=== PATIENT | male | born 1935 | race African-American/Black ===

== ENCOUNTER 2016-06-25 16:55 | Outpatient (RCR) | payer MEDICARE, BC ==
[~2016-06-25 16:55] MED LIST: ASPIR 8181 MG ORAL; BACTRIM DS TAB1 EAC1 ORAL; BENADRYL25 M3 PO; KEFLEX500 MG ORAL; NEURONTIN600 MG ORAL; NYSTATIN TP; PREDNISONE20 MG ORAL; TRIAMCINOLONE TP; VICODIN 5-3001 EACH ORAL; ZOCOR20 MG ORAL
== END 2016-07-17 | disposition home or self-care (01) ==
LOC: WCC 16:55
DX: L97.822 Non-pressure chronic ulcer of other part of left lower leg with fat layer exposed (principal); I87.2 Venous insufficiency (chronic) (peripheral); I10 Essential (primary) hypertension; D57.1 Sickle-cell disease without crisis; Z88.6 Allergy status to analgesic agent
CPT/HCPCS: 11042; 11045; 15271; 29580; Q4133

== ENCOUNTER 2016-07-23 10:00 | Outpatient (RCR) | payer MEDICARE, BC | END 2016-08-14 | disposition home or self-care (01) | LOC: WCC 10:00 | DX: L97.822 Non-pressure chronic ulcer of other part of left lower leg with fat layer exposed (principal); I87.2 Venous insufficiency (chronic) (peripheral); I10 Essential (primary) hypertension; Z83.3 Family history of diabetes mellitus | CPT/HCPCS: 11042; 15271; 29580; Q4133 ==

== ENCOUNTER 2016-08-20 10:00 | Outpatient (RCR) | payer MEDICARE, BC | END 2016-09-14 | disposition home or self-care (01) | LOC: WCC 10:00 | DX: L97.821 Non-pressure chronic ulcer of other part of left lower leg limited to breakdown of skin (principal); L97.822 Non-pressure chronic ulcer of other part of left lower leg with fat layer exposed; I87.2 Venous insufficiency (chronic) (peripheral); Z79.82 Long term (current) use of aspirin; I10 Essential (primary) hypertension; D57.1 Sickle-cell disease without crisis | CPT/HCPCS: 15271; 29580; G0463; Q4133 ==

== ENCOUNTER 2018-01-15 11:33 | Emergency (ER) | payer MEDICARE, BC ==
[~2018-01-15] VITALS: Ht 188 cm; Wt 102.1 kg
[2018-01-15] MEDS ORDERED: IBUPROFEN600 MG ORAL (12:22)
--- NOTE | 2018-01-15 12:24 | Emergency Room Report ---
History of Present Illness General Chief Complaint: Upper Extremity Injury Source: Patient (Grover Martinez) Present Illness HPI 82-year-old male patient presents ER complaining of right elbow pain status post fall 2 weeks ago. Reports he was using a walker when it was pulled out from him and he fell backwards, states he fell on his back and then his head hit the floor, denies headache or back pain. Denies vomiting or vision changes. Denies dizziness, syncope. Reports pain symptoms improved we did not feel the need come to ER. Reports he came to the ER today because his daughter brought him in due to concerns of the swelling still being present. Patient history of sickle cell, denies chest pain, shortness of breath, other acute symptoms at this time. Reports he takes [place] for sciatica and low back pain. Reports last medication this morning. Denies fever, redness, worsening of pain symptoms. Reports he has been able to move his arm and elbow during this time. (Grover Martinez) Allergies: Coded Allergies: ACETAMINOPHEN (Verified Allergy, Unknown, 10/27/15) HYDROCODONE (Verified Allergy, Unknown, 10/27/15) Patient History Past Medical History: see triage record Reviewed Nursing Documentation: PMH: Agreed; PSxH: Agreed (Grover Martinez) Nursing Documentation-PMH Hx Cardiac Problems: Yes - HYPERCHOLESTEROLEMIA Hx Hypertension: Yes Hx Pacemaker: No - SICKLE CELL Hx Cancer: No Hx Gastrointestinal Problems: Yes Hx Neurological Problems: Yes - RIGHT HIP SCIATICAL PAIN Hx Weakness: Yes - RIGHT LOWER EXT (Grover Martinez) Review of Systems All Other Systems: negative except mentioned in HPI (Grover Martinez) Physical Exam Vital Signs Date Time Temp Pulse Resp B/P (MAP) Pulse Ox O2 Delivery O2 Flow Rate FiO2 01/15/18 11:43 98.2 80 18 140/86 95 Room Air 98.2 Sp02 EP Interpretation: reviewed, normal General Appearance: well appearing, no apparent distress, alert, GCS 15, non- toxic Head: normocephalic, atraumatic, other - negative Castillo sign, negative Raccoon eyes, negative skull depression Eyes: bilateral eye normal inspection, bilateral eye PERRL, bilateral eye EOMI ENT: hearing grossly normal, normal pharynx, no angioedema, normal voice, uvula midline, moist mucus membranes Neck: full range of motion Respiratory: lungs clear, normal breath sounds, no rhonchi, no respiratory distress, no accessory muscle use, no wheezing, speaking full sentences Cardiovascular #1: regular rate, rhythm, no edema Cardiovascular #2: 2+ radial (R), 2+ radial (L) Genitourinary: no CVA tenderness Musculoskeletal: back normal, digits/nails normal, gait/station normal, normal range of motion, non-tender, swelling - right elbow, mobile, other - neurovascularly intact, cap refill less than 2 seconds, no erythema or warmth to touch, no ecchymosis, tender - right elbow Neurologic: alert, oriented x3, responsive, reporting developer III-XII nml as tested, motor strength/tone normal, sensory intact, cerebellar normal, normal gait, speech normal Psychiatric: mood/affect normal Skin: no rash (Grover Martinez.AYeny) Medical Decision Making PA Attestation Dr. Butler is my supervising Physician whom patient management has been discussed with. (Grover Martinez.Conor) Medicare Attestation The history of Timothy Edward has been reviewed and management options for him have been examined and discussed by Radha Butler. I have personally examined and interviewed the patient. (Radha Butler DO) Diagnostic Impression: Primary Impression: Elbow effusion ER Course Pt. presents to the ED c/o right elbow. Ddx considered but are not limited to fracture, sprain, strain, contusion, dislocation. No erythema, no warmth to touch, no fever, nontoxic appearing, low suspicion for septic joint. Cranial nerves intact as tested, no focal neuro deficits, due to hx of sickle cell and age, will CT head to rule out underlying pathology. Vital signs: are WNL, pt. is afebrile Ordered X-ray and pain medication. ER COURSE CT head shows An X-ray of the right elbow shows Splint was applied to the right elbow and was checked afterwards by me showing good alignment and support with distal neurovascular functioning intact. Patient instructed on RICE method: rest, ice, compression, elevation. Patient instructed on rest, ice and heat. Patient instructed to be WBAT Followup with primary care provider. Discuss referral to ortho/pain management/ PT as needed. Discuss further imaging with MRI/CT as needed. DISCHARGE: -Rx provided for Ibuprofen for pain symptoms. At this time pt. is stable for d/c to home. Patient is resting comfortably, in no acute distress, nontoxic appearing, talking without difficulty. Will provide printed patient care instructions, and any necessary prescriptions. Patient instructed to follow with primary care provider in 3 - 5 days and to request further follow-up as needed. Care plan and follow up instructions have been discussed with the patient prior to discharge. Take medications as directed. Patient questions asked and answered. Patient reports understanding and agreement to treatment plan. ER precautions given, patient instructed to return to ER immediately for any new or worsening of symptoms. - Please note that this Emergency Department Report was dictated using [employer] interview[employer] technology software, occasionally this can lead to erroneous entry secondary to interpretation by the dictation equipment. (Grover Martinez.Conor) ER Course The patient has findings on exam consistent with a hemorrhagic bursitis. Based on physical exam infection has not suspected. CT of the head is unremarkable. CT of the head was done as a precaution given the patient's fall and age. There is no evidence of intracranial bleed. Patient right elbow x-ray and right humerus x-ray showed no acute findings. The patient was reassured. The patient was given return precautions and follow-up instructions. (Radha Butler DO) Other X-Ray Diagnostic Results Other X-Ray Diagnostic Results : X-Ray ordered: right elbow # of Views/Limited Vs Complete: 3 View Indication: Pain EP Interpretation: Yes PA Xray: Interpretation reviewed, by supervising MD, and agrees with findings. Interpretation: no dislocation, other - soft tissue swelling over elbow; anterior fat pad Impression: Other PA Scribe Text Zac Martinez PA-C (Grover Martinez P.A.) Other X-Ray Diagnostic Results : X-Ray ordered: R. elbow, R. humerus # of Views/Limited Vs Complete: Complete Indication: Swelling EP Interpretation: No Interpretation: no dislocation, no fractures Impression: No acute disease Electronically Signed by: Henrietta (Radha Butler DO) CT/MRI/US Diagnostic Results CT/MRI/US Diagnostic Results : Imaging Test Ordered: CT head (Grover Martinez P.A.) CT/MRI/US Diagnostic Results : Imaging Test Ordered: CT head Impression No acute findings. See official report. (Radha Butler DO) Last Vital Signs Date Time Temp Pulse Resp B/P (MAP) Pulse Ox O2 Delivery O2 Flow Rate FiO2 01/15/18 11:43 98.2 80 18 140/86 95 Room Air 98.2 (Grover Martinez) Disposition: HOME, SELF-CARE Condition: Stable Scripts Ibuprofen* (MOTRIN*) 600 Mg Tablet 600 MG ORAL Q8H PRN for For Pain, #30 TAB 0 Refills Prov: Grover Martinez 01/15/18 Patient Instructions: Elbow Bursitis, [id number], Elbow Contusion, Easy-to- Read Additional Instructions: Patient instructed to follow up with primary care provider and discuss further referral to orthopedics. Discuss need for drainage at that time. Patient instructed on RICE method: rest, ice, compression, elevation. Patient instructed to WBAT. Take medications as directed. Patient questions asked and answered. ER precautions given, patient instructed to return to ER immediately for any new or worsening of symptoms. Grover Martinez Jan 15, 2018 12:24 Radha Butler DO Jan 15, 2018 13:40
--- NOTE | 2018-01-15 13:07 | Diagnostic Imaging Report ---
Indications: Head trauma Technique: Spiral acquisitions obtained through the brain. Angled axial and coronal 5 x 5 mm slices were reconstructed. Total dose length product 1424.89 mGycm. CTDI vol(s) 70.38 mGy. Dose reduction achieved using automated exposure control Comparison: None. Findings: There is age-related enlargement of the ventricles and extra axial CSF spaces. No acute intracranial hemorrhage nor edema, mass effect, nor midline shift. There is periventricular deep white matter low-attenuation, consistent with chronic ischemic change. 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 A small cutaneous lesion is seen in the left 5 parietal scalp. Intact calvarium. Visualized sinuses are clear. The mastoids are clear Impression: Chronic and age-related changes Negative for acute intracranial bleed or mass effect Incidental findings of left parietal scalp cutaneous lesion, prior ocular surgery on the right The CT scanner at [facility] is accredited by the [employer] and the scans are performed using protocols designed to limit radiation exposure to as low as reasonably achievable to attain images of sufficient resolution adequate for diagnostic evaluation.
--- NOTE | 2018-01-15 13:20 | Diagnostic Imaging Report ---
Indications:Trauma, pain Technique: Three or 4 views of the right elbow Comparison: None Findings: There is soft tissue swelling overlying the olecranon. No definite joint effusion. No acute fractures. No dislocations. Impression: Evidence of soft tissue injury. No definite acute bony trauma
--- NOTE | 2018-01-15 13:21 | Diagnostic Imaging Report ---
Indications: Reason For Exam: TRAUMA Technique: Two views of the right humerus Comparison: None Findings: The AP view, there is very slight cortical irregularity of the humeral head, as well as some deformity of the humeral head, not confirmed on the orthogonal view. There is calcific tendinosis of the rotator cuff. No shaft fracture demonstrated. Impression: Slight cortical irregularity of the humeral head. Per discussion with referring physician, there are no symptoms related to the humeral head, so this probably this reflects degenerative changes rather than fracture. No definite acute bony trauma
[2018-01-15 14:03] VITALS: BP 118/74
== END 2018-01-15 14:06 | disposition home or self-care (01) ==
LOC: EMR 12:40
DX: M25.421 Effusion, right elbow (principal); E78.00 Pure hypercholesterolemia, unspecified; D57.1 Sickle-cell disease without crisis; M54.31 Sciatica, right side
CPT/HCPCS: 70450; 99283

== ENCOUNTER 2018-04-16 09:05 | Inpatient (IN) | payer MEDICARE, BC ==
[~2018-04-16] VITALS: Ht 184.2 cm; Wt 99.8 kg
[~2018-04-16 09:05] MED LIST changes: +IBUPROFEN600 MG ORAL
[2018-04-16 09:19] VITALS: BP 133/77
[2018-04-16] MEDS ORDERED: LOVASTATIN40 MG ORAL (09:31)
[2018-04-16] MEDS ORDERED: POTASSIUM CHLO20 ME2 ORAL (09:31)
[2018-04-16] MEDS ORDERED: AMLODIPINE BESY10 MG ORAL (09:31)
[2018-04-16] MEDS ORDERED: NORCO 10-325 T1 EACH ORAL (09:31)
[2018-04-16] MEDS ORDERED: NEXIUM40 MG ORAL (09:31)
[2018-04-16] MEDS ORDERED: TAMSULOSIN HCL0.4 MG ORAL (09:37)
[2018-04-16] MEDS ORDERED: Albuterol/Ipratropium 3ml neb HHN ONE (10:15)
[2018-04-16] MEDS ORDERED: Ketorolac 30mg Inj IV ONE (10:15)
[2018-04-16 10:48] LABS: HEMATOCRIT 34.7 % (42.0-52.0); HEMOGLOBIN 12.1 G/DL (14.2-18.0); MEAN CORPUSCULAR VOLUME 83 FL (80-99); PLATELET COUNT 314 K/UL (150-450); RED CELL DISTRIBUTION WIDTH 15.1 % (11.6-14.8); WHITE BLOOD COUNT 19.8 K/UL (4.8-10.8)
[2018-04-16 11:04] LABS: ANION GAP 3 mmol/L (5-15); BLOOD UREA NITROGEN 8 mg/dL (7-18); CALCIUM 9.2 MG/DL (8.5-10.1); CARBON DIOXIDE 31 MMOL/L (21-32); CHLORIDE 101 MMOL/L (98-107); CREATININE 0.9 MG/DL (0.55-1.30); POTASSIUM 4.5 MMOL/L (3.5-5.1); SODIUM 135 MMOL/L (136-145)
[2018-04-16 11:20] VITALS: BP 130/74
[2018-04-16] MEDS ORDERED: cefTRIAXone 1 GM in NS 55 ML IVPB ONE (12:30)
[2018-04-16] MEDS ORDERED: Azithromycin 500 MG in NS 275 ML IV ONE (12:30)
--- NOTE | 2018-04-16 13:12 | Emergency Room Report ---
History of Present Illness General Chief Complaint: Upper Respiratory Illness Source: Medical Record Present Illness HPI 82M with family here c/o chronic bilateral hip pain. Long standing condition, takes [place], Neurontin. No trauma but pain mildly worse today. Also +wheezing, harder to breathe. No fever, minimal nonproductive cough. No calf pain. No chest pain, no abd pain. Allergies: Coded Allergies: ACETAMINOPHEN (Verified Allergy, Unknown, 10/27/15) HYDROCODONE (Verified Allergy, Unknown, 10/27/15) Nursing Documentation-PMH Past Medical History: No History, Except For Hx Cardiac Problems: No - HYPERCHOLESTEROLEMIA Hx Hypertension: Yes Hx Pacemaker: No - SICKLE CELL Hx Cancer: No Hx Gastrointestinal Problems: Yes Hx Neurological Problems: No - RIGHT HIP SCIATICAL PAIN Hx Weakness: Yes - RIGHT LOWER EXT Review of Systems Constitutional: Reports: no symptoms, see HPI, malaise Eye: Reports: no symptoms ENT: Reports: no symptoms Respiratory: Reports: wheezing Cardiovascular: Reports: no symptoms Gastrointestinal: Reports: no symptoms Genitourinary: Reports: no symptoms Musculoskeletal: Reports: joint pain Skin: Reports: no symptoms Psychiatric: Reports: no symptoms Neurological: Reports: no symptoms Endocrine: Reports: no symptoms Hematologic/Lymphatic: Reports: no symptoms Allergic: Reports: no symptoms All Other Systems: negative except mentioned in HPI Physical Exam Vital Signs Date Time Temp Pulse Resp B/P (MAP) Pulse Ox O2 Delivery O2 Flow Rate FiO2 04/16/18 09:09 98.6 110 18 136/70 93 Room Air 04/16/18 11:20 3.0 Sp02 EP Interpretation: reviewed, normal General Appearance: normal inspection, well appearing, alert, GCS 15, non-toxic , mild distress Head: normocephalic, atraumatic Eyes: bilateral eye normal inspection, bilateral eye PERRL, bilateral eye EOMI ENT: normal ENT inspection, hearing grossly normal, normal pharynx, no angioedema, normal voice, moist mucus membranes Neck: normal inspection, full range of motion, supple, no meningismus, no bony tend Respiratory: normal inspection, normal breath sounds, no rhonchi, no retraction , no accessory muscle use, other - expiratory wheezes all lung hardin; crackles left lower half Cardiovascular #1: normal inspection, regular rate, rhythm, no edema Gastrointestinal: normal inspection, normal bowel sounds, non tender, soft, no mass, non-distended Musculoskeletal: gait/station normal, normal range of motion Neurologic: normal inspection, alert, oriented x3, responsive, motor strength/ tone normal Psychiatric: normal inspection, judgement/insight normal, memory normal Suicide Risk Assessment: Suicidal Ideation: No Had intent to initiate attempt: No Pt's plan for suicide attempt: No Has means to complete attempt: No Skin: normal inspection, normal color, no rash, warm/dry Medical Decision Making Diagnostic Impression: Primary Impression: Pneumonia ER Course pulse ox ~92% . ABG with hypoxemia 60 on RA leukocytosis noted DD: PE, ACS, pericarditis, pleural effusion, COPD exacerbation, asthma exacerbation, CHF exacerbation, pulmonary edema, bronchitis, URI, pneumonia, sepsis. Rhythm Strip Diag. Results Rhythm Strip Time: 13:12 EP Interpretation: yes Rate: 101 Rhythm: NSR Chest X-Ray Diagnostic Results Chest X-Ray Diagnostic Results : Chest X-Ray Ordered: Yes # of Views/Limited/Complete: 1 View Indication: Shortness of Breath EP Interpretation: Yes Interpretation: no pneumothorax, other - LLL infiltrate Last Vital Signs Date Time Temp Pulse Resp B/P (MAP) Pulse Ox O2 Delivery O2 Flow Rate FiO2 04/16/18 11:37 85 22 Nasal Cannula 3.0 04/16/18 11:20 98.6 130/74 97 Disposition: ADMITTED INPATIENT Condition: Serious Referrals: NON PHYSICIAN (PCP) Arturo Lujan M.D. Apr 16, 2018 13:12
--- NOTE | 2018-04-16 13:52 | Diagnostic Imaging Report ---
Indication: Shortness of breath Technique: One view of the chest Comparison: 01/14/2014 Findings: There is suboptimal inspiration, with crowding of bronchovascular markings. Atelectasis and patchy infiltrate is seen at the left lung base. There is generalized interstitial prominence and central bronchial wall thickening on the left. The heart is upper limits normal in size. The pleural spaces are grossly clear. As previously, bones are suggestively diffusely sclerotic Impression: Left basilar infiltrate Hypoventilatory exam with basilar atelectatic changes. Left lung interstitial disease and central bronchial wall thickening, nonspecific As previously, there is suggestion of diffuse osteoporosis. Correlate with any history of metabolic derangements
[2018-04-16 14:03] VITALS: BP 135/70
[2018-04-16 14:10] VITALS: BP 134/73
[2018-04-16] MEDS ORDERED: Miralax 17gm pkt ORAL PRN (14:15)
[2018-04-16] MEDS ORDERED: Morphine Sulfate 2mg/ml Inj IVP PRN (14:15)
[2018-04-16] MEDS ORDERED: Albuterol/Ipratropium 3ml neb HHN PRN (14:15)
--- NOTE | 2018-04-16 14:41 | Consultation ---
Consult Note Consult Note # [id number] Anjel Bob MD Apr 16, 2018 14:41
[2018-04-16 16:00] VITALS: BP 132/71
[2018-04-16 20:10] VITALS: BP 142/72
[2018-04-16] MEDS: Cefepime HCl 2 GM in D5W 110 ML IV SCH (20:43)
[2018-04-16] MEDS: Heparin 5000 units/ml inj SUBQ SCH (20:45)
--- NOTE | 2018-04-16 21:15 | History and Physical Report ---
DATE OF ADMISSION: 04/16/2018 TIME SEEN: 1 p.m. CONSULTANTS: 1. Eamon Fuller M.D. 2. Anjel Bob M.D. 3. Cristóbal Richardson D.P.M. CHIEF COMPLAINT: Hip pain, toe pain, also shortness of breath, and wheeze. BRIEF HISTORY: This is an 82-year-old male, who lives at home, presented with a chronic hip pain bilaterally getting worse with shortness of breath and wheezing, came to [facility], diagnosed with pneumonia, sepsis, hypoxia, and being admitted to telemetry for further care. Currently, O2 NC, calm, eating in the ER gurney. No complaint. REVIEW OF SYSTEMS: No chest pain. Slight short of breath. No nausea, vomiting, or diarrhea. PAST MEDICAL HISTORY: Includes hypertension, weakness, and sickle cell. PAST SURGICAL HISTORY: Cataract. MEDICATIONS: Include ceftriaxone, azithromycin, albuterol, and ketorolac. ALLERGIES: Tylenol and hydrocodone. SOCIAL HISTORY: No smoking. No alcohol. No intravenous drug abuse. FAMILY HISTORY: Noncontributory. PHYSICAL EXAMINATION: GENERAL: Calm in bed, oriented x2, in no acute distress. O2 NC in place, slight short of breath. VITAL SIGNS: Temperature 98 degrees, pulse 85, respirations 22, and blood pressure 130/74. CARDIOVASCULAR: No murmur. LUNGS: Poor air exchange. ABDOMEN: Bowel sounds positive. Nontender. Nondistended. EXTREMITIES: Show no cyanosis, clubbing, or edema. NEUROLOGIC: The patient moves all extremities. Slightly weak. LABORATORY AND DIAGNOSTIC DATA: White count 19, hemoglobin and hematocrit are 12 and 34, and platelets 314,000. Sodium 135 and glucose 123. Troponin 0.00. BNP is 181. ASSESSMENT: 1. Chronic hip pain bilaterally. 2. Shortness of breath. 3. Wheezing. 4. Pneumonia. 5. Sepsis. 6. Hypoxia. 7. Anemia. 8. Hypertension. 9. Weakness. 10. Sickle cell. PLAN: 1. Continue previous medications. 2. OT, PT, and dietary evaluation. 3. CBC and BMP in the morning. 4. O2 and pulmonary treatment as needed. 5. Pain control. 6. We will continue to follow this patient medically. lAen Goldman D.O. DR: BROOKLYNN JOB#: [id number] CC:
--- NOTE | 2018-04-16 22:30 | Consultation ---
DATE OF CONSULTATION: 04/16/2018 INFECTIOUS DISEASE CONSULTATION CONSULTING PHYSICIAN: Anjel Bob M.D. REFERRING PHYSICIAN: Alen Goldman D.O. REASON FOR CONSULTATION: Evaluation of the patient for pneumonia, leukocytosis, and antibiotic management. HISTORY OF PRESENT ILLNESS: The patient is a pleasant 82-year-old male with multiple medical problems, as listed below, who was admitted to this medical center for bilateral hip pain that the patient contributes to sciatica. The patient was found to have leukocytosis. Chest x-ray is suggestive of pneumonia. The patient has history of recent chest congestion. He was admitted with the impression of pneumonia, leukocytosis, and probable sepsis. Infectious Disease consultation has been requested for further evaluation of the patient and antibiotic management. PAST MEDICAL HISTORY: 1. Sciatical pain. 2. History of hyperlipidemia. 3. History of sickle cell disease. 4. Hiatal hernia. MEDICATIONS: The patient received one dose of Rocephin and Zithromax in the emergency room. Currently, on vancomycin and cefepime. ALLERGIES: Hydrocodone and acetaminophen. FAMILY HISTORY: Not contributing. REVIEW OF SYSTEMS: HEENT: No recent change in vision or hearing. PULMONARY: As mentioned above. CARDIOVASCULAR: No chest pain or palpitation. GASTROINTESTINAL/ABDOMEN: No nausea or vomiting. GENITOURINARY: No dysuria. MUSCULOSKELETAL: As mentioned above. NEUROLOGIC: No history of seizure. PHYSICAL EXAMINATION: VITAL SIGNS: Temperature 98 degrees, blood pressure 135/70, pulse 86, and respiratory rate 18. HEENT: No pale conjunctivae. No icterus. NECK: No lymphadenopathy. CHEST: Coarse breathing sounds. Mild crackles at bases of both lungs. HEART: S1 and S2. ABDOMEN: Obese and nontender. EXTREMITIES: No cyanosis. NEUROLOGIC: Awake and alert. LABORATORY DATA: White blood cells 19, hemoglobin 12, and platelets 214,000. UA unremarkable. BUN 8 and creatinine 0.8. ALT, AST, and alkaline phosphatase is pending. Chest x-ray showed left basilar infiltrate. ASSESSMENT: The patient is an 82-year-old male with, 1. Leukocytosis. 2. Left lower lobe pneumonia (community-acquired). 3. Rule out probable bacteremia. PLAN: 1. We will continue the patient on cefepime and Zithromax day #1. 2. Hold vancomycin. 3. Monitor CBC. 4. Monitor BMP. 5. Monitor cultures. 6. Monitor chest x-ray. 7. Based on the clinical course and laboratories, we will do further recommendation. Thank you for this consultation. I will follow the patient during this admission. Anjel Bob M.D. DR: CHAU JOB#: [id number] CC:
[2018-04-17 00:33] VITALS: BP 104/73
[2018-04-17 04:00] VITALS: BP 135/77
[2018-04-17 07:31] LABS: HEMATOCRIT 36.6 % (42.0-52.0); HEMOGLOBIN 12.9 G/DL (14.2-18.0); MEAN CORPUSCULAR VOLUME 83 FL (80-99); PLATELET COUNT 320 K/UL (150-450); RED BLOOD COUNT 4.44 M/UL (4.70-6.10); RED CELL DISTRIBUTION WIDTH 14.7 % (11.6-14.8); WHITE BLOOD COUNT 21.2 K/UL (4.8-10.8)
[2018-04-17 08:00] VITALS: BP 138/90
[2018-04-17 08:03] LABS: ALANINE AMINOTRANSFERASE 18 U/L (12-78); ALBUMIN 3.6 G/DL (3.4-5.0); ALBUMIN/GLOBULIN RATIO 0.8 (1.0-2.7); ALKALINE PHOSPHATASE 95 U/L (46-116); ANION GAP 10 mmol/L (5-15); ASPARTATE AMINO TRANSFERASE 36 U/L (15-37); BILIRUBIN,TOTAL 3.1 MG/DL (0.2-1.0); BLOOD UREA NITROGEN 9 mg/dL (7-18); CALCIUM 9.8 MG/DL (8.5-10.1); CARBON DIOXIDE 27 MMOL/L (21-32); CHLORIDE 103 MMOL/L (98-107); CREATININE 0.9 MG/DL (0.55-1.30); POTASSIUM 4.4 MMOL/L (3.5-5.1); SODIUM 139 MMOL/L (136-145)
[2018-04-17 08:04] LABS: BILIRUBIN,DIRECT 0.6 MG/DL (0.0-0.3)
[2018-04-17] MEDS: Aspirin EC 81mg tab ORAL SCH (08:58)
[2018-04-17] MEDS: Cefepime HCl 2 GM in D5W 110 ML IV SCH ×2 (08:59→20:28)
[2018-04-17] MEDS: Heparin 5000 units/ml inj SUBQ SCH ×2 (09:01→20:29)
--- NOTE | 2018-04-17 11:52 | Infectious Diseases Prog Note ---
Assessment/Plan Assessment/Plan ASSESSMENT: The patient is an 82-year-old male with, Leukocytosis improving Left lower lobe pneumonia (community-acquired) Chest x-ray showed left basilar infiltrate Rule out probable bacteremia Sciatica pain History of hyperlipidemia History of sickle cell disease Hiatal hernia. PLAN: continue the patient on cefepime and Zithromax day # 2 Monitor CBC Monitor BMP Monitor cultures Monitor chest x-ray Subjective Constitutional: Denies: no symptoms, fever, chills, fatigue, anorexia, drenching sweats, other Allergies: Coded Allergies: ACETAMINOPHEN (Verified Allergy, Unknown, 10/27/15) HYDROCODONE (Verified Allergy, Unknown, 10/27/15) Objective Vital Signs Last 24 Hour Vital Signs Date Time Temp Pulse Resp B/P (MAP) Pulse Ox O2 Delivery O2 Flow Rate FiO2 04/17/18 09:00 Nasal Cannula 2.0 04/17/18 08:00 98.0 99 21 138/90 (106) 95 04/17/18 07:17 Nasal Cannula 2.0 28 04/17/18 07:16 92 Nasal Cannula 2.0 28 04/17/18 07:15 90 16 Nasal Cannula 2.0 28 04/17/18 04:00 98.0 105 20 135/77 (96) 96 04/17/18 00:33 97.5 94 20 104/73 (83) 97 04/16/18 21:00 Nasal Cannula 2.0 04/16/18 20:10 94 Nasal Cannula 2.0 28 04/16/18 20:10 Nasal Cannula 2.0 28 04/16/18 20:10 62 18 Nasal Cannula 2.0 28 04/16/18 20:10 98.0 20 142/72 (95) 100 04/16/18 16:00 98.4 87 18 132/71 (91) 04/16/18 14:26 Nasal Cannula 2.0 04/16/18 14:10 97.8 96 18 134/73 (93) 04/16/18 14:03 98.5 89 24 135/70 100 Nasal Cannula 3.0 04/16/18 14:03 98.5 85 24 135/70 100 Nasal Cannula 3.0 Height (Feet): 6 Height (Inches): 0.50 Weight (Pounds): 222 HEENT: anicteric Respiratory/Chest: no respiratory distress Cardiovascular: regular rhythm Abdomen: no organomegaly Laboratory Tests Test 04/16/18 11:54 04/17/18 07:00 Arterial Blood pH 7.400 (7.350-7.450) Arterial Blood Partial Pressure CO2 48.0 mmHg (35.0-45.0) H Arterial Blood Partial Pressure O2 60.4 mmHg (75.0-100.0) L Arterial Blood HCO3 29.1 mmol/L (22.0-26.0) H Arterial Blood Oxygen Saturation 89.2 % (95-100) *L Arterial Blood Base Excess 3.6 (-2-2) H Carter Test Positive White Blood Count 21.2 K/UL (4.8-10.8) H Red Blood Count 4.44 M/UL (4.70-6.10) L Hemoglobin 12.9 G/DL (14.2-18.0) L Hematocrit 36.6 % (42.0-52.0) L Mean Corpuscular Volume 83 FL (80-99) Mean Corpuscular Hemoglobin 29.1 PG (27.0-31.0) Mean Corpuscular Hemoglobin Concent 35.2 G/DL (32.0-36.0) Red Cell Distribution Width 14.7 % (11.6-14.8) Platelet Count 320 K/UL (150-450) Mean Platelet Volume 6.5 FL (6.5-10.1) Neutrophils (%) (Auto) % (45.0-75.0) Lymphocytes (%) (Auto) % (20.0-45.0) Monocytes (%) (Auto) % (1.0-10.0) Eosinophils (%) (Auto) % (0.0-3.0) Basophils (%) (Auto) % (0.0-2.0) Differential Total Cells Counted 100 Neutrophils % (Manual) 65 % (45-75) Lymphocytes % (Manual) 20 % (20-45) Monocytes % (Manual) 8 % (1-10) Eosinophils % (Manual) 6 % (0-3) H Basophils % (Manual) 1 % (0-2) Band Neutrophils 0 % (0-8) Platelet Estimate Adequate Platelet Morphology Normal Red Blood Cell Morphology Normal Sodium Level 139 MMOL/L (136-145) Potassium Level 4.4 MMOL/L (3.5-5.1) Chloride Level 103 MMOL/L (98-107) Carbon Dioxide Level 27 MMOL/L (21-32) Anion Gap 10 mmol/L (5-15) Blood Urea Nitrogen 9 mg/dL (7-18) Creatinine 0.9 MG/DL (0.55-1.30) Estimat Glomerular Filtration Rate mL/min (>60) Glucose Level 121 MG/DL (74-106) H Calcium Level 9.8 MG/DL (8.5-10.1) Total Bilirubin 3.1 MG/DL (0.2-1.0) H Direct Bilirubin 0.6 MG/DL (0.0-0.3) H Aspartate Amino Transf (AST/SGOT) 36 U/L (15-37) Alanine Aminotransferase (ALT/SGPT) 18 U/L (12-78) Alkaline Phosphatase 95 U/L (46-116) Total Protein 8.0 G/DL (6.4-8.2) Albumin 3.6 G/DL (3.4-5.0) Globulin 4.4 g/dL Albumin/Globulin Ratio 0.8 (1.0-2.7) L Current Medications Medications (Trade) Dose Ordered Sig/Meseret Route PRN Reason Start Time Stop Time Status Last Admin Dose Admin Albuterol/ Ipratropium (Albuterol/ Ipratropium) 3 ml Q4H PRN HHN Shortness of Breath 04/16/18 14:15 04/21/18 14:14 Amlodipine Besylate (Norvasc) 10 mg DAILY ORAL 04/17/18 09:00 05/17/18 08:59 Aspirin (Ecotrin) 81 mg DAILY ORAL 04/17/18 09:00 05/17/18 08:59 04/17/18 08:58 Azithromycin 500 mg/Dextrose 275 ml @ 275 mls/hr Q24HRS IV 04/17/18 14:00 04/23/18 14:59 Cefepime HCl 2 gm/ Dextrose 110 ml @ 220 mls/hr EVERY 12 HOURS IV 04/16/18 21:00 04/23/18 20:59 04/17/18 08:59 Gabapentin (Neurontin) 800 mg QID ORAL 04/16/18 18:00 05/16/18 17:59 04/17/18 08:59 Heparin Sodium (Porcine) (Heparin 5000 units/ml) 5,000 units EVERY 12 HOURS SUBQ 10/31/18 21:00 05/16/18 20:59 04/17/18 09:01 Morphine Sulfate (Morphine Sulfate) 2 mg Q4H PRN IVP Moderate Pain (Pain Scale 4-6) 04/16/18 14:15 04/23/18 14:14 Ondansetron HCl (Zofran) 4 mg Q6H PRN IVP Nausea & Vomiting 04/16/18 14:15 05/16/18 14:14 Phenazopyridine HCl (Pyridium) 100 mg DAILYPRN PRN ORAL dysuria 04/16/18 14:15 05/16/18 14:14 Polyethylene Glycol (Miralax) 17 gm DAILYPRN PRN ORAL Constipation 04/16/18 14:15 05/16/18 14:14 Temazepam (Restoril) 15 mg HSPRN PRN ORAL Insomnia 04/16/18 14:15 04/23/18 14:14 Anjel Bob MD Apr 17, 2018 11:52
[2018-04-17 12:00] VITALS: BP 134/72
--- NOTE | 2018-04-17 12:22 | Consultation ---
History of Present Illness General Date patient seen: Apr 17, 2018 Chief Complaint: Upper Respiratory Illness Present Illness HPI 82 year old male with hx of Sickle cell disease presented to ER with CC of bilateral hip pain, Initial evaluation revealed LL lobe infiltrate. Pt had leukocytosis and admitted for further management. Allergies: Coded Allergies: ACETAMINOPHEN (Verified Allergy, Unknown, 10/27/15) HYDROCODONE (Verified Allergy, Unknown, 10/27/15) Medication History Scheduled Amlodipine Besylate* (Amlodipine Besylate*), 10 MG ORAL DAILY, (Reported) Aspirin* (Aspir 81*), 81 MG ORAL DAILY, (Reported) Esomeprazole Magnesium (Nexium), 40 MG ORAL DAILY, (Reported) Gabapentin* (Neurontin*), 800 MG ORAL QID, (Reported) Lovastatin (Lovastatin), 40 MG ORAL BEDTIME, (Reported) Nystatin/Triamcin (Nystatin-Triamcinolone Ointm), 1 APPLIC TP BID Potassium Chloride (Potassium Chloride), 20 MEQ ORAL DAILY, (Reported) Prednisone* (Prednisone*), 40 MG ORAL DAILY Simvastatin (Zocor), 20 MG ORAL BEDTIME, (Reported) Tamsulosin Hcl (Tamsulosin Hcl*), 0.4 MG ORAL BEDTIME, (Reported) Scheduled PRN Hydrocodone Bit/Acetaminophen (Vicodin 5-300 Mg Tablet), 1 TAB ORAL Q4H PRN for For Pain, (Reported) Hydrocodone Bit/Acetaminophen 10-325* ([place] 10-325*), 1 TAB ORAL Q4H PRN for For Pain, (Reported) Patient History Healthcare decision maker KRIS PUGH Resuscitation status Full Code Advanced Directive on File No Past Medical/Surgical History Past Medical/Surgical History: (1) Sickle cell disease (2) Hydrocele, right Review of Systems All Other Systems: negative except mentioned in HPI Physical Exam General Appearance: WD/WN, no apparent distress Lines, tubes and drains: peripheral HEENT: normocephalic, atraumatic Neck: non-tender, normal alignment Respiratory/Chest: chest wall non-tender, lungs clear Breasts: no masses Cardiovascular/Chest: normal peripheral pulses, normal rate Abdomen: normal bowel sounds Genitourinary/Rectal: normal genital exam Extremities: normal range of motion Last 24 Hour Vital Signs Date Time Temp Pulse Resp B/P (MAP) Pulse Ox O2 Delivery O2 Flow Rate FiO2 04/17/18 09:00 Nasal Cannula 2.0 04/17/18 08:00 98.0 99 21 138/90 (106) 95 04/17/18 07:17 Nasal Cannula 2.0 28 04/17/18 07:16 92 Nasal Cannula 2.0 28 04/17/18 07:15 90 16 Nasal Cannula 2.0 28 04/17/18 04:00 98.0 105 20 135/77 (96) 96 04/17/18 00:33 97.5 94 20 104/73 (83) 97 04/16/18 21:00 Nasal Cannula 2.0 04/16/18 20:10 94 Nasal Cannula 2.0 28 04/16/18 20:10 Nasal Cannula 2.0 28 04/16/18 20:10 62 18 Nasal Cannula 2.0 28 04/16/18 20:10 98.0 20 142/72 (95) 100 04/16/18 16:00 98.4 87 18 132/71 (91) 04/16/18 14:26 Nasal Cannula 2.0 04/16/18 14:10 97.8 96 18 134/73 (93) 04/16/18 14:03 98.5 89 24 135/70 100 Nasal Cannula 3.0 04/16/18 14:03 98.5 85 24 135/70 100 Nasal Cannula 3.0 Intake and Output 04/16/18 04/17/18 19:00 07:00 Intake Total 0 ml 110 ml Output Total 1400 ml Balance 0 ml -1290 ml Intake Oral 0 ml IV Total 110 ml Output Urine Total 1400 ml # Voids 4 # Bowel Movements 1 Laboratory Tests Test 04/17/18 07:00 White Blood Count 21.2 K/UL (4.8-10.8) H Red Blood Count 4.44 M/UL (4.70-6.10) L Hemoglobin 12.9 G/DL (14.2-18.0) L Hematocrit 36.6 % (42.0-52.0) L Mean Corpuscular Volume 83 FL (80-99) Mean Corpuscular Hemoglobin 29.1 PG (27.0-31.0) Mean Corpuscular Hemoglobin Concent 35.2 G/DL (32.0-36.0) Red Cell Distribution Width 14.7 % (11.6-14.8) Platelet Count 320 K/UL (150-450) Mean Platelet Volume 6.5 FL (6.5-10.1) Neutrophils (%) (Auto) % (45.0-75.0) Lymphocytes (%) (Auto) % (20.0-45.0) Monocytes (%) (Auto) % (1.0-10.0) Eosinophils (%) (Auto) % (0.0-3.0) Basophils (%) (Auto) % (0.0-2.0) Differential Total Cells Counted 100 Neutrophils % (Manual) 65 % (45-75) Lymphocytes % (Manual) 20 % (20-45) Monocytes % (Manual) 8 % (1-10) Eosinophils % (Manual) 6 % (0-3) H Basophils % (Manual) 1 % (0-2) Band Neutrophils 0 % (0-8) Platelet Estimate Adequate Platelet Morphology Normal Red Blood Cell Morphology Normal Sodium Level 139 MMOL/L (136-145) Potassium Level 4.4 MMOL/L (3.5-5.1) Chloride Level 103 MMOL/L (98-107) Carbon Dioxide Level 27 MMOL/L (21-32) Anion Gap 10 mmol/L (5-15) Blood Urea Nitrogen 9 mg/dL (7-18) Creatinine 0.9 MG/DL (0.55-1.30) Estimat Glomerular Filtration Rate mL/min (>60) Glucose Level 121 MG/DL (74-106) H Calcium Level 9.8 MG/DL (8.5-10.1) Total Bilirubin 3.1 MG/DL (0.2-1.0) H Direct Bilirubin 0.6 MG/DL (0.0-0.3) H Aspartate Amino Transf (AST/SGOT) 36 U/L (15-37) Alanine Aminotransferase (ALT/SGPT) 18 U/L (12-78) Alkaline Phosphatase 95 U/L (46-116) Total Protein 8.0 G/DL (6.4-8.2) Albumin 3.6 G/DL (3.4-5.0) Globulin 4.4 g/dL Albumin/Globulin Ratio 0.8 (1.0-2.7) L Height (Feet): 6 Height (Inches): 0.50 Weight (Pounds): 222 Medications Current Medications Medications (Trade) Dose Ordered Sig/Meseret Route PRN Reason Start Time Stop Time Status Last Admin Dose Admin Albuterol/ Ipratropium (Albuterol/ Ipratropium) 3 ml Q4H PRN HHN Shortness of Breath 04/16/18 14:15 04/21/18 14:14 Amlodipine Besylate (Norvasc) 10 mg DAILY ORAL 04/17/18 09:00 05/17/18 08:59 Aspirin (Ecotrin) 81 mg DAILY ORAL 04/17/18 09:00 05/17/18 08:59 04/17/18 08:58 Azithromycin 500 mg/Dextrose 275 ml @ 275 mls/hr Q24HRS IV 04/17/18 14:00 04/23/18 14:59 Cefepime HCl 2 gm/ Dextrose 110 ml @ 220 mls/hr EVERY 12 HOURS IV 04/16/18 21:00 04/23/18 20:59 04/17/18 08:59 Gabapentin (Neurontin) 800 mg QID ORAL 04/16/18 18:00 05/16/18 17:59 04/17/18 08:59 Heparin Sodium (Porcine) (Heparin 5000 units/ml) 5,000 units EVERY 12 HOURS SUBQ 04/16/18 21:00 05/16/18 20:59 04/17/18 09:01 Morphine Sulfate (Morphine Sulfate) 2 mg Q4H PRN IVP Moderate Pain (Pain Scale 4-6) 04/16/18 14:15 04/23/18 14:14 Ondansetron HCl (Zofran) 4 mg Q6H PRN IVP Nausea & Vomiting 04/16/18 14:15 05/16/18 14:14 Phenazopyridine HCl (Pyridium) 100 mg DAILYPRN PRN ORAL dysuria 04/16/18 14:15 05/16/18 14:14 Polyethylene Glycol (Miralax) 17 gm DAILYPRN PRN ORAL Constipation 04/16/18 14:15 05/16/18 14:14 Temazepam (Restoril) 15 mg HSPRN PRN ORAL Insomnia 04/16/18 14:15 04/23/18 14:14 Assessment/Plan Problem List: (1) Sepsis ICD Codes: A41.9 - Sepsis, unspecified organism SNOMED: 98629547 (2) Sickle cell disease ICD Codes: D57.1 - Sickle cell disease SNOMED: 794410209 (3) Anemia ICD Codes: D64.9 - Anemia SNOMED: 719613303 (4) Pneumonia ICD Codes: J18.9 - Pneumonia, unspecified organism SNOMED: 765280934 Assessment/Plan bonner culture IV abx anemia w/u check electrolytes dvt prophylaxis Eamon Fuller MD Apr 17, 2018 12:22
[2018-04-17] MEDS: Azithromycin 500 MG in D5W 275 ML IV SCH (13:49)
--- NOTE | 2018-04-17 13:59 | General Progress Note ---
Assessment/Plan Problem List: (1) Hip pain ICD Codes: M25.559 - Pain in unspecified hip SNOMED: 36895313 (2) Sepsis ICD Codes: A41.9 - Sepsis, unspecified organism SNOMED: 64107639 (3) Sickle cell disease ICD Codes: D57.1 - Sickle cell disease SNOMED: 588101514 (4) Anemia ICD Codes: D64.9 - Anemia SNOMED: 901238245 (5) Pneumonia ICD Codes: J18.9 - Pneumonia, unspecified organism SNOMED: 684825449 Status: unchanged Assessment/Plan ot pt diet abx o2 pulm tx pain control cbc bmp am Subjective Constitutional: Reports: weakness Allergies: Coded Allergies: ACETAMINOPHEN (Verified Allergy, Unknown, 10/27/15) HYDROCODONE (Verified Allergy, Unknown, 10/27/15) All Systems: reviewed and negative except above Subjective sleepy calm in bed Objective Last 24 Hour Vital Signs Date Time Temp Pulse Resp B/P (MAP) Pulse Ox O2 Delivery O2 Flow Rate FiO2 04/17/18 12:00 98.6 92 20 134/72 (92) 98 04/17/18 09:00 Nasal Cannula 2.0 04/17/18 08:59 99 138/90 04/17/18 08:00 98.0 99 21 138/90 (106) 95 04/17/18 07:17 Nasal Cannula 2.0 28 04/17/18 07:16 92 Nasal Cannula 2.0 28 04/17/18 07:15 90 16 Nasal Cannula 2.0 28 04/17/18 04:00 98.0 105 20 135/77 (96) 96 04/17/18 00:33 97.5 94 20 104/73 (83) 97 04/16/18 21:00 Nasal Cannula 2.0 04/16/18 20:10 94 Nasal Cannula 2.0 28 04/16/18 20:10 Nasal Cannula 2.0 28 04/16/18 20:10 62 18 Nasal Cannula 2.0 28 04/16/18 20:10 98.0 20 142/72 (95) 100 04/16/18 16:00 98.4 87 18 132/71 (91) 04/16/18 14:26 Nasal Cannula 2.0 04/16/18 14:10 97.8 96 18 134/73 (93) 04/16/18 14:03 98.5 89 24 135/70 100 Nasal Cannula 3.0 04/16/18 14:03 98.5 85 24 135/70 100 Nasal Cannula 3.0 Intake and Output 04/16/18 04/17/18 19:00 07:00 Intake Total 0 ml 110 ml Output Total 1400 ml Balance 0 ml -1290 ml Intake Oral 0 ml IV Total 110 ml Output Urine Total 1400 ml # Voids 4 # Bowel Movements 1 Laboratory Tests 04/17/18 07:00: White Blood Count 21.2H, Red Blood Count 4.44L, Hemoglobin 12.9L, Hematocrit 36.6L, Mean Corpuscular Volume 83, Mean Corpuscular Hemoglobin 29.1, Mean Corpuscular Hemoglobin Concent 35.2, Red Cell Distribution Width 14.7, Platelet Count 320, Mean Platelet Volume 6.5, Neutrophils (%) (Auto) , Lymphocytes (%) ( Auto) , Monocytes (%) (Auto) , Eosinophils (%) (Auto) , Basophils (%) (Auto) , Differential Total Cells Counted 100, Neutrophils % (Manual) 65, Lymphocytes % ( Manual) 20, Monocytes % (Manual) 8, Eosinophils % (Manual) 6H, Basophils % ( Manual) 1, Band Neutrophils 0, Platelet Estimate Adequate, Platelet Morphology Normal, Red Blood Cell Morphology Normal, Sodium Level 139, Potassium Level 4.4 , Chloride Level 103, Carbon Dioxide Level 27, Anion Gap 10, Blood Urea Nitrogen 9, Creatinine 0.9, Estimat Glomerular Filtration Rate , Glucose Level 121H, Calcium Level 9.8, Total Bilirubin 3.1H, Direct Bilirubin 0.6H, Aspartate Amino Transf (AST/SGOT) 36, Alanine Aminotransferase (ALT/SGPT) 18, Alkaline Phosphatase 95, Total Protein 8.0, Albumin 3.6, Globulin 4.4, Albumin/Globulin Ratio 0.8L Height (Feet): 6 Height (Inches): 0.50 Weight (Pounds): 222 General Appearance: lethargic EENT: normal ENT inspection Neck: normal alignment Cardiovascular: normal peripheral pulses, normal rate, regular rhythm Respiratory/Chest: chest wall non-tender, lungs clear, normal breath sounds Abdomen: normal bowel sounds, non tender, soft Extremities: normal inspection Edema: no edema noted Arm (L), no edema noted Arm (R), no edema noted Leg (L), no edema noted Leg (R), no edema noted Pedal (L), no edema noted Pedal (R), no edema noted Generalized Neurologic: motor weakness Skin: normal pigmentation, warm/dry Alen Goldman DO Apr 17, 2018 13:59
[2018-04-17 16:00] VITALS: BP 121/72
[2018-04-17] MEDS ORDERED: Vancomycin 1 GM in D5W 275 ML IVPB SCH (17:00)
--- NOTE | 2018-04-17 18:30 | Consultation ---
DATE OF CONSULTATION: 04/16/2018 CONSULTING PHYSICIAN: Cristóbal Richardson D.P.M. REQUESTING PHYSICIAN: Alen Goldman D.O. REASON FOR CONSULTATION: Pain at the toes. HISTORY OF PRESENT ILLNESS: The patient is an 82-year-old male, admitted to [facility] today for pneumonia. The patient's daughter is at bedside. 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 He also expresses he has sciatica that troubles him on the right lower extremity. PAST MEDICAL HISTORY: Significant for hypertension, weakness, and sickle cell. The patient has had cataract surgery. MEDICATIONS: Per MAR. Include cefepime, heparin for DVT prophylaxis, and azithromycin. FAMILY HISTORY: Noncontributory. SOCIAL HISTORY: Noncontributory. REVIEW OF SYSTEMS: HEENT: The patient denies any headaches, blurred vision, or ringing in the ears. CARDIOVASCULAR: The patient denies any chest pain. GENITOURINARY: The patient denies any urgency, frequency, burning upon urination, or hematuria. GASTROINTESTINAL: The patient denies any constipation, diarrhea, or blood in the stool. PHYSICAL EXAMINATION: VITAL SIGNS: Temperature is 98.6, pulse is 85, respiration rate is 20, blood pressure is 130/74, and saturating 97% on 3 liters. LOWER EXTREMITY: Vascular, 2+ palpable dorsalis pedis and posterior tibial arteries noted bilaterally. Feet are equally warm. There is no edema or cyanosis noted. DERMATOLOGICAL: There are no open sores or lesions noted bilaterally. Interdigital spaces are clear bilaterally. Nails appear of appropriate length and do not appear incurvated or ingrown. No signs of infection are noted. MUSCULOSKELETAL: The patient has 4/5 muscle strength noted in the anterior lateral and posterior muscle groups of bilateral lower extremities. NEUROLOGIC: Protective thresholds intact. LABORATORY DATA: White blood cell count is 9.8, hemoglobin and hematocrit is 12.1 and 34.3, and platelet count is 314,000. Potassium is 4.5, BUN is 8, creatinine is 0.9, and glucose is 123. No lower extremity imaging is noted on this admission. ASSESSMENT: 1. Toenails are within normal limits and not ingrown. No signs of pedal wounds. 2. Sciatica, right lower extremity. PLAN: 1. The patient and daughter were educated that there is no issues currently with his feet. 2. Sciatica could be addressed as an outpatient with outpatient orthopedist. Thank you for the courtesy of this consultation, Dr. Goldman. Cristóbal Richardson D.P.M. DR: ASHLEIGH JOB#: [id number] CC:
[2018-04-17 20:38] VITALS: BP 142/78
--- NOTE | 2018-04-17 20:45 | Consultation ---
DATE OF CONSULTATION: 04/17/2018 ORTHOPEDIC CONSULTATION CONSULTING PHYSICIAN: Kong Ag M.D. CHIEF COMPLAINT: Bilateral hip pain. HISTORY OF PRESENT ILLNESS: The patient is an 82-year-old gentleman who is a poor historian. He is admitted for pneumonia. Orthopedic consultation was obtained for chronic bilateral hip pain. PAST MEDICAL HISTORY: Reviewed from the intake chart. SURGICAL HISTORY: Reviewed from the intake chart. MEDICATIONS: Reviewed from the intake chart. PHYSICAL EXAMINATION: GENERAL: The patient is pretty lethargic. He is sedated. VITAL SIGNS: Afebrile. Stable vital signs. MUSCULOSKELETAL: Right hip examination shows this is difficult to perform given the patient is pretty lethargic. The patient per medical record, he has long history of bilateral hip pain. The patient has previously been diagnosed with right lower extremity symptoms consistent with possible sciatica. DIAGNOSTIC DATA: No imaging studies of the hip were available. ASSESSMENT: 1. Bilateral chronic hip pain. 2. Sickle cell anemia. 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 At this point, I will recommend imaging studies. Based on the imaging studies which is x-ray of the right and left hip, he may be a candidate to get an MRI to see evidence of avascular necrosis of the femoral head. Clearly the issue at this point, he is not really any type of candidate for any type of surgical intervention for the right and left hip due to his current pneumonia infection. Once he clears the infection, he can follow up as an outpatient for additional workup regarding the hip issues. If he does have evidence of avascular necrosis, possible total hip replacement will be discussed with the patient. Kong Ag M.D. DR: Mario JOB#: [id number] CC:
[2018-04-18] VITALS (7 sets, daily range): BP systolic 109–136; BP diastolic 66–92
[2018-04-18 06:37] LABS: ANION GAP 4 mmol/L (5-15); BLOOD UREA NITROGEN 9 mg/dL (7-18); CALCIUM 9.4 MG/DL (8.5-10.1); CARBON DIOXIDE 30 MMOL/L (21-32); CHLORIDE 106 MMOL/L (98-107); CREATININE 0.9 MG/DL (0.55-1.30); POTASSIUM 3.9 MMOL/L (3.5-5.1); SODIUM 140 MMOL/L (136-145)
[2018-04-18 06:55] LABS: BASOPHILS % (AUTO) 1.1 % (0.0-2.0); EOSINOPHILS % (AUTO) 3.9 % (0.0-3.0); HEMOGLOBIN 12.3 G/DL (14.2-18.0); LYMPHOCYTES % (AUTO) 13.8 % (20.0-45.0); MEAN CORPUSCULAR VOLUME 83 FL (80-99); MONOCYTES % (AUTO) 7.9 % (1.0-10.0); NEUTROPHILS % (AUTO) 73.3 % (45.0-75.0); PLATELET COUNT 319 K/UL (150-450); RED BLOOD COUNT 4.35 M/UL (4.70-6.10); RED CELL DISTRIBUTION WIDTH 14.9 % (11.6-14.8); WHITE BLOOD COUNT 15.6 K/UL (4.8-10.8)
[2018-04-18] MEDS: Aspirin EC 81mg tab ORAL SCH (09:07)
[2018-04-18] MEDS: Cefepime HCl 2 GM in D5W 110 ML IV SCH ×2 (09:08→20:13)
[2018-04-18] MEDS: Heparin 5000 units/ml inj SUBQ SCH ×2 (09:09→20:16)
--- NOTE | 2018-04-18 11:09 | Diagnostic Imaging Report ---
Indications: hip pain Findings: 2 views of both hips were obtained. There is no obvious acute fracture. There is a severe patchy bone mineralization with areas of sclerosis and diminished mineralization. Further evaluation with bone scan is recommended. Pharyngeal considerations include metabolic bone disease but also infiltrative disease such as myeloma or metastatic neoplasm. IMPRESSION: No acute injury appreciated. Abnormal bone mineralization with patchy heterogeneity. Infiltrative disease such as a myeloma or metastatic neoplasm not excluded. Evaluation of bone scan is recommended
--- NOTE | 2018-04-18 11:59 | Pulmonology Progress Note ---
Assessment/Plan Problems: (1) Sepsis (2) Sickle cell disease (3) Anemia (4) Pneumonia Assessment/Plan check cultures iv abx chest PT respiratory treatment CXR in a few days f/u electrolytes aspiration precaution dvt prophylaxis. Subjective ROS Limited/Unobtainable: No Interval Events: doing better Allergies: Coded Allergies: ACETAMINOPHEN (Verified Allergy, Unknown, 10/27/15) HYDROCODONE (Verified Allergy, Unknown, 10/27/15) Objective Last 24 Hour Vital Signs Date Time Temp Pulse Resp B/P (MAP) Pulse Ox O2 Delivery O2 Flow Rate FiO2 04/18/18 09:08 108 109/74 04/18/18 09:00 Nasal Cannula 2.0 04/18/18 08:00 99.5 108 18 109/74 (86) 94 04/18/18 07:37 75 16 Nasal Cannula 2.0 28 04/18/18 07:37 Nasal Cannula 2.0 28 04/18/18 07:37 95 Nasal Cannula 2.0 28 04/18/18 04:08 99.1 82 18 123/66 (85) 99 04/18/18 00:36 98.5 82 18 132/92 (105) 98 04/17/18 20:41 Nasal Cannula 2.0 04/17/18 20:38 98.6 84 18 142/78 (99) 97 04/17/18 18:48 96 Nasal Cannula 2.0 28 04/17/18 18:48 88 18 Nasal Cannula 2.0 28 04/17/18 18:48 Nasal Cannula 2.0 28 04/17/18 16:00 98.2 94 20 121/72 (88) 97 04/17/18 12:00 98.6 92 20 134/72 (92) 98 Intake and Output 04/17/18 04/18/18 19:00 07:00 Intake Total 600 ml 350 ml Balance 600 ml 350 ml Intake Oral 600 ml 240 ml IV Total 110 ml # Voids 3 2 General Appearance: WD/WN HEENT: normocephalic, atraumatic Respiratory/Chest: chest wall non-tender, lungs clear Cardiovascular: normal peripheral pulses, normal rate Abdomen: normal bowel sounds, soft, non tender Genitourinary: normal external genitalia Extremities: no cyanosis Skin: no rash Neurologic/Psychiatric: education rep II-XII grossly normal Microbiology Date/Time Source Procedure Growth Status 04/16/18 16:00 Blood Blood Culture - Preliminary NO GROWTH AFTER 24 HOURS Resulted 04/16/18 15:50 Blood Blood Culture - Preliminary NO GROWTH AFTER 24 HOURS Resulted 04/17/18 06:00 Indwelling Cath Urine Culture - Preliminary NO GROWTH AFTER 24 HOURS Resulted Laboratory Tests 04/18/18 05:40: White Blood Count 15.6H, Red Blood Count 4.35L, Hemoglobin 12.3L, Hematocrit 36.0L, Mean Corpuscular Volume 83, Mean Corpuscular Hemoglobin 28.3, Mean Corpuscular Hemoglobin Concent 34.1, Red Cell Distribution Width 14.9H, Platelet Count 319, Mean Platelet Volume 6.9, Neutrophils (%) (Auto) 73.3, Lymphocytes (%) (Auto) 13.8L, Monocytes (%) (Auto) 7.9, Eosinophils (%) (Auto) 3.9H, Basophils (%) (Auto) 1.1, Sodium Level 140, Potassium Level 3.9, Chloride Level 106, Carbon Dioxide Level 30, Anion Gap 4L, Blood Urea Nitrogen 9, Creatinine 0.9, Estimat Glomerular Filtration Rate , Glucose Level 130H, Calcium Level 9.4 Current Medications Medications (Trade) Dose Ordered Sig/Meseret Route PRN Reason Start Time Stop Time Status Last Admin Dose Admin Albuterol/ Ipratropium (Albuterol/ Ipratropium) 3 ml Q4H PRN HHN Shortness of Breath 04/16/18 14:15 04/21/18 14:14 Amlodipine Besylate (Norvasc) 10 mg DAILY ORAL 04/17/18 09:00 05/17/18 08:59 04/18/18 09:08 Aspirin (Ecotrin) 81 mg DAILY ORAL 04/17/18 09:00 05/17/18 08:59 04/18/18 09:07 Azithromycin 500 mg/Dextrose 275 ml @ 275 mls/hr Q24HRS IV 04/17/18 14:00 04/23/18 14:59 04/17/18 13:49 Cefepime HCl 2 gm/ Dextrose 110 ml @ 220 mls/hr EVERY 12 HOURS IV 04/16/18 21:00 04/23/18 20:59 04/18/18 09:08 Gabapentin (Neurontin) 800 mg QID ORAL 04/16/18 18:00 05/16/18 17:59 04/18/18 09:07 Heparin Sodium (Porcine) (Heparin 5000 units/ml) 5,000 units EVERY 12 HOURS SUBQ 04/16/18 21:00 05/16/18 20:59 04/18/18 09:09 Morphine Sulfate (Morphine Sulfate) 2 mg Q4H PRN IVP Moderate Pain (Pain Scale 4-6) 04/16/18 14:15 04/23/18 14:14 Ondansetron HCl (Zofran) 4 mg Q6H PRN IVP Nausea & Vomiting 04/16/18 14:15 05/16/18 14:14 Phenazopyridine HCl (Pyridium) 100 mg DAILYPRN PRN ORAL dysuria 04/16/18 14:15 05/16/18 14:14 Polyethylene Glycol (Miralax) 17 gm DAILYPRN PRN ORAL Constipation 04/16/18 14:15 05/16/18 14:14 Temazepam (Restoril) 15 mg HSPRN PRN ORAL Insomnia 04/16/18 14:15 04/23/18 14:14 Eamon Fuller MD Apr 18, 2018 11:59
--- NOTE | 2018-04-18 13:14 | General Progress Note ---
Assessment/Plan Problem List: (1) Hip pain ICD Codes: M25.559 - Pain in unspecified hip SNOMED: 24257447 (2) Sepsis ICD Codes: A41.9 - Sepsis, unspecified organism SNOMED: 96114480 (3) Sickle cell disease ICD Codes: D57.1 - Sickle cell disease SNOMED: 452965855 (4) Anemia ICD Codes: D64.9 - Anemia SNOMED: 258783395 (5) Pneumonia ICD Codes: J18.9 - Pneumonia, unspecified organism SNOMED: 440067323 Status: stable, progressing Assessment/Plan ot pt diet abx o2 pulm tx pain control cbc bmp am Subjective Constitutional: Reports: weakness Allergies: Coded Allergies: ACETAMINOPHEN (Verified Allergy, Unknown, 10/27/15) HYDROCODONE (Verified Allergy, Unknown, 10/27/15) All Systems: reviewed and negative except above Subjective sleepy calm in bed Objective Last 24 Hour Vital Signs Date Time Temp Pulse Resp B/P (MAP) Pulse Ox O2 Delivery O2 Flow Rate FiO2 04/18/18 09:08 108 109/74 04/18/18 09:00 Nasal Cannula 2.0 04/18/18 08:00 99.5 108 18 109/74 (86) 94 04/18/18 07:37 75 16 Nasal Cannula 2.0 28 04/18/18 07:37 Nasal Cannula 2.0 28 04/18/18 07:37 95 Nasal Cannula 2.0 28 04/18/18 04:08 99.1 82 18 123/66 (85) 99 04/18/18 00:36 98.5 82 18 132/92 (105) 98 04/17/18 20:41 Nasal Cannula 2.0 04/17/18 20:38 98.6 84 18 142/78 (99) 97 04/17/18 18:48 96 Nasal Cannula 2.0 28 04/17/18 18:48 88 18 Nasal Cannula 2.0 28 04/17/18 18:48 Nasal Cannula 2.0 28 04/17/18 16:00 98.2 94 20 121/72 (88) 97 Intake and Output 04/17/18 04/18/18 19:00 07:00 Intake Total 600 ml 350 ml Balance 600 ml 350 ml Intake Oral 600 ml 240 ml IV Total 110 ml # Voids 3 2 Laboratory Tests 04/18/18 05:40: White Blood Count 15.6H, Red Blood Count 4.35L, Hemoglobin 12.3L, Hematocrit 36.0L, Mean Corpuscular Volume 83, Mean Corpuscular Hemoglobin 28.3, Mean Corpuscular Hemoglobin Concent 34.1, Red Cell Distribution Width 14.9H, Platelet Count 319, Mean Platelet Volume 6.9, Neutrophils (%) (Auto) 73.3, Lymphocytes (%) (Auto) 13.8L, Monocytes (%) (Auto) 7.9, Eosinophils (%) (Auto) 3.9H, Basophils (%) (Auto) 1.1, Sodium Level 140, Potassium Level 3.9, Chloride Level 106, Carbon Dioxide Level 30, Anion Gap 4L, Blood Urea Nitrogen 9, Creatinine 0.9, Estimat Glomerular Filtration Rate , Glucose Level 130H, Calcium Level 9.4 Height (Feet): 6 Height (Inches): 0.50 Weight (Pounds): 222 General Appearance: alert EENT: normal ENT inspection Neck: non-tender, normal alignment, supple Cardiovascular: normal peripheral pulses, normal rate, regular rhythm Respiratory/Chest: chest wall non-tender, decreased breath sounds Abdomen: normal bowel sounds, non tender, soft Extremities: normal inspection Edema: no edema noted Arm (L), no edema noted Arm (R), no edema noted Leg (L), no edema noted Leg (R), no edema noted Pedal (L), no edema noted Pedal (R), no edema noted Generalized Neurologic: responsive, motor weakness Skin: normal pigmentation, warm/dry Alen Goldman DO Apr 18, 2018 13:14
[2018-04-18] MEDS: Azithromycin 500 MG in D5W 275 ML IV SCH (13:27)
--- NOTE | 2018-04-18 17:05 | Infectious Diseases Prog Note ---
Assessment/Plan Assessment/Plan ASSESSMENT: The patient is an 82-year-old male with, Leukocytosis improving Left lower lobe pneumonia (community-acquired) Chest x-ray showed left basilar infiltrate Rule out probable bacteremia Bl vascular necrosis hips cell anemia Sciatica pain History of hyperlipidemia History of sickle cell disease Hiatal hernia. PLAN: continue the patient on cefepime and Zithromax day # 3/5-7 Monitor CBC Monitor BMP Monitor cultures Monitor chest x-ray Subjective Allergies: Coded Allergies: ACETAMINOPHEN (Verified Allergy, Unknown, 10/27/15) HYDROCODONE (Verified Allergy, Unknown, 10/27/15) Subjective Comfortable Objective Vital Signs Last 24 Hour Vital Signs Date Time Temp Pulse Resp B/P (MAP) Pulse Ox O2 Delivery O2 Flow Rate FiO2 04/18/18 12:00 97.2 111 18 134/74 (94) 96 04/18/18 09:08 108 109/74 04/18/18 09:00 Nasal Cannula 2.0 04/18/18 08:00 99.5 108 18 109/74 (86) 94 04/18/18 07:37 75 16 Nasal Cannula 2.0 28 04/18/18 07:37 Nasal Cannula 2.0 28 04/18/18 07:37 95 Nasal Cannula 2.0 28 04/18/18 04:08 99.1 82 18 123/66 (85) 99 04/18/18 00:36 98.5 82 18 132/92 (105) 98 04/17/18 20:41 Nasal Cannula 2.0 04/17/18 20:38 98.6 84 18 142/78 (99) 97 04/17/18 18:48 96 Nasal Cannula 2.0 28 04/17/18 18:48 88 18 Nasal Cannula 2.0 28 04/17/18 18:48 Nasal Cannula 2.0 28 Height (Feet): 6 Height (Inches): 0.50 Weight (Pounds): 222 HEENT: anicteric Respiratory/Chest: normal breath sounds Cardiovascular: regularly irregular Abdomen: no organomegaly Microbiology Date/Time Source Procedure Growth Status 04/16/18 16:00 Blood Blood Culture - Preliminary NO GROWTH AFTER 24 HOURS Resulted 04/16/18 15:50 Blood Blood Culture - Preliminary NO GROWTH AFTER 24 HOURS Resulted 04/18/18 15:00 Stool Received 04/17/18 06:00 Indwelling Cath Urine Culture - Preliminary NO GROWTH AFTER 24 HOURS Resulted Laboratory Tests Test 04/18/18 05:40 White Blood Count 15.6 K/UL (4.8-10.8) H Red Blood Count 4.35 M/UL (4.70-6.10) L Hemoglobin 12.3 G/DL (14.2-18.0) L Hematocrit 36.0 % (42.0-52.0) L Mean Corpuscular Volume 83 FL (80-99) Mean Corpuscular Hemoglobin 28.3 PG (27.0-31.0) Mean Corpuscular Hemoglobin Concent 34.1 G/DL (32.0-36.0) Red Cell Distribution Width 14.9 % (11.6-14.8) H Platelet Count 319 K/UL (150-450) Mean Platelet Volume 6.9 FL (6.5-10.1) Neutrophils (%) (Auto) 73.3 % (45.0-75.0) Lymphocytes (%) (Auto) 13.8 % (20.0-45.0) L Monocytes (%) (Auto) 7.9 % (1.0-10.0) Eosinophils (%) (Auto) 3.9 % (0.0-3.0) H Basophils (%) (Auto) 1.1 % (0.0-2.0) Sodium Level 140 MMOL/L (136-145) Potassium Level 3.9 MMOL/L (3.5-5.1) Chloride Level 106 MMOL/L (98-107) Carbon Dioxide Level 30 MMOL/L (21-32) Anion Gap 4 mmol/L (5-15) L Blood Urea Nitrogen 9 mg/dL (7-18) Creatinine 0.9 MG/DL (0.55-1.30) Estimat Glomerular Filtration Rate mL/min (>60) Glucose Level 130 MG/DL (74-106) H Calcium Level 9.4 MG/DL (8.5-10.1) Current Medications Medications (Trade) Dose Ordered Sig/Meseret Route PRN Reason Start Time Stop Time Status Last Admin Dose Admin Albuterol/ Ipratropium (Albuterol/ Ipratropium) 3 ml Q4H PRN HHN Shortness of Breath 04/16/18 14:15 04/21/18 14:14 Amlodipine Besylate (Norvasc) 10 mg DAILY ORAL 11/1/18 09:00 05/17/18 08:59 04/18/18 09:08 Aspirin (Ecotrin) 81 mg DAILY ORAL 04/17/18 09:00 05/17/18 08:59 04/18/18 09:07 Azithromycin 500 mg/Dextrose 275 ml @ 275 mls/hr Q24HRS IV 04/17/18 14:00 04/23/18 14:59 04/18/18 13:27 Cefepime HCl 2 gm/ Dextrose 110 ml @ 220 mls/hr EVERY 12 HOURS IV 04/16/18 21:00 04/23/18 20:59 04/18/18 09:08 Gabapentin (Neurontin) 800 mg QID ORAL 04/16/18 18:00 05/16/18 17:59 04/18/18 13:26 Heparin Sodium (Porcine) (Heparin 5000 units/ml) 5,000 units EVERY 12 HOURS SUBQ 04/16/18 21:00 05/16/18 20:59 04/18/18 09:09 Morphine Sulfate (Morphine Sulfate) 2 mg Q4H PRN IVP Moderate Pain (Pain Scale 4-6) 04/16/18 14:15 04/23/18 14:14 Ondansetron HCl (Zofran) 4 mg Q6H PRN IVP Nausea & Vomiting 04/16/18 14:15 05/16/18 14:14 Phenazopyridine HCl (Pyridium) 100 mg DAILYPRN PRN ORAL dysuria 04/16/18 14:15 05/16/18 14:14 Polyethylene Glycol (Miralax) 17 gm DAILYPRN PRN ORAL Constipation 04/16/18 14:15 05/16/18 14:14 Temazepam (Restoril) 15 mg HSPRN PRN ORAL Insomnia 04/16/18 14:15 04/23/18 14:14 Anjel Bob MD Apr 18, 2018 17:05
[2018-04-18] MEDS ORDERED: Loperamide 2mg cap ORAL PRN (19:30)
[2018-04-18] MEDS ORDERED: Albuterol/Ipratropium 3ml neb HHN PRN (22:15)
[2018-04-19] VITALS: BP 125/70
[2018-04-19 04:00] VITALS: BP 134/73
--- NOTE | 2018-04-19 07:19 | General Progress Note ---
Assessment/Plan Problem List: (1) Hip pain ICD Codes: M25.559 - Pain in unspecified hip SNOMED: 62181504 (2) Sepsis ICD Codes: A41.9 - Sepsis, unspecified organism SNOMED: 30165134 (3) Sickle cell disease ICD Codes: D57.1 - Sickle cell disease SNOMED: 141669348 (4) Anemia ICD Codes: D64.9 - Anemia SNOMED: 171193031 (5) Pneumonia ICD Codes: J18.9 - Pneumonia, unspecified organism SNOMED: 290839562 Status: stable, progressing Assessment/Plan ot pt diet abx o2 pulm tx pain control cbc bmp am Subjective Constitutional: Reports: weakness Allergies: Coded Allergies: ACETAMINOPHEN (Verified Allergy, Unknown, 10/27/15) HYDROCODONE (Verified Allergy, Unknown, 10/27/15) All Systems: reviewed and negative except above Subjective sleepy calm in bed Objective Last 24 Hour Vital Signs Date Time Temp Pulse Resp B/P (MAP) Pulse Ox O2 Delivery O2 Flow Rate FiO2 04/19/18 04:00 90 04/19/18 04:00 98.2 100 20 134/73 (93) 94 04/19/18 00:00 87 04/19/18 00:00 98.3 89 20 125/70 (88) 94 04/18/18 22:00 87 04/18/18 21:40 98.6 98 20 136/79 (98) 94 04/18/18 20:50 Nasal Cannula 2.0 04/18/18 20:49 Room Air 04/18/18 20:46 93 Room Air 04/18/18 20:00 98.4 117 18 127/80 (96) 95 04/18/18 16:00 98.2 114 20 130/75 (93) 94 04/18/18 12:00 97.2 111 18 134/74 (94) 96 04/18/18 09:08 108 109/74 04/18/18 09:00 Nasal Cannula 2.0 04/18/18 08:00 99.5 108 18 109/74 (86) 94 04/18/18 07:37 75 16 Nasal Cannula 2.0 28 04/18/18 07:37 Nasal Cannula 2.0 28 04/18/18 07:37 95 Nasal Cannula 2.0 28 Intake and Output 04/18/18 04/19/18 18:59 06:59 Intake Total 1045 ml Output Total 300 ml Balance 1045 ml -300 ml Intake Oral 660 ml IV Total 385 ml Output Urine Total 300 ml # Voids 4 # Bowel Movements 2 Height (Feet): 6 Height (Inches): 0.50 Weight (Pounds): 222 General Appearance: lethargic EENT: normal ENT inspection Neck: normal alignment Cardiovascular: normal peripheral pulses, normal rate, regular rhythm Respiratory/Chest: chest wall non-tender, lungs clear, normal breath sounds Abdomen: normal bowel sounds, non tender, soft Extremities: normal inspection Edema: no edema noted Arm (L), no edema noted Arm (R), no edema noted Leg (L), no edema noted Leg (R), no edema noted Pedal (L), no edema noted Pedal (R), no edema noted Generalized Neurologic: motor weakness Skin: normal pigmentation, warm/dry Alen Goldman DO Apr 19, 2018 07:19
--- NOTE | 2018-04-19 07:43 | Infectious Diseases Prog Note ---
Assessment/Plan Assessment/Plan ASSESSMENT: The patient is an 82-year-old male with, Leukocytosis improving Left lower lobe pneumonia (community-acquired) Chest x-ray showed left basilar infiltrate Rule out probable bacteremia Bl vascular necrosis hips cell anemia Sciatica pain History of hyperlipidemia History of sickle cell disease Hiatal hernia. PLAN: - Continue the patient on cefepime and Zithromax day # 4/5 - Monitor CBC - Monitor BMP - Monitor cultures - Monitor chest x-ray Subjective Allergies: Coded Allergies: ACETAMINOPHEN (Verified Allergy, Unknown, 10/27/15) HYDROCODONE (Verified Allergy, Unknown, 10/27/15) Subjective Afebrile Leukocytosis improving Says he feels well breathing RA Objective Vital Signs Last 24 Hour Vital Signs Date Time Temp Pulse Resp B/P (MAP) Pulse Ox O2 Delivery O2 Flow Rate FiO2 04/19/18 04:00 90 04/19/18 04:00 98.2 100 20 134/73 (93) 94 04/19/18 00:00 87 04/19/18 00:00 98.3 89 20 125/70 (88) 94 04/18/18 22:00 87 04/18/18 21:40 98.6 98 20 136/79 (98) 94 04/18/18 20:50 Nasal Cannula 2.0 04/18/18 20:49 Room Air 04/18/18 20:46 93 Room Air 04/18/18 20:00 98.4 117 18 127/80 (96) 95 04/18/18 16:00 98.2 114 20 130/75 (93) 94 04/18/18 12:00 97.2 111 18 134/74 (94) 96 04/18/18 09:08 108 109/74 04/18/18 09:00 Nasal Cannula 2.0 04/18/18 08:00 99.5 108 18 109/74 (86) 94 Height (Feet): 6 Height (Inches): 0.50 Weight (Pounds): 222 Objective HEENT: NCAT, MMM Respiratory/Chest: normal breath sounds B/L Cardiovascular: regularly irregular Abdomen: Not distended Soft Microbiology Date/Time Source Procedure Growth Status 04/16/18 16:00 Blood Blood Culture - Preliminary NO GROWTH AFTER 48 HOURS Resulted 04/16/18 15:50 Blood Blood Culture - Preliminary NO GROWTH AFTER 48 HOURS Resulted 04/18/18 15:00 Stool Clostridium difficile Toxin Assay - Final Complete 04/17/18 06:00 Indwelling Cath Urine Culture - Final NO GROWTH AFTER 48 HOURS Complete Current Medications Medications (Trade) Dose Ordered Sig/Meseret Route PRN Reason Start Time Stop Time Status Last Admin Dose Admin Albuterol/ Ipratropium (Albuterol/ Ipratropium) 3 ml Q4H PRN HHN Shortness of Breath 04/18/18 22:15 04/21/18 14:14 Amlodipine Besylate (Norvasc) 10 mg DAILY ORAL 04/19/18 09:00 05/17/18 08:59 Aspirin (Ecotrin) 81 mg DAILY ORAL 04/19/18 09:00 05/17/18 08:59 Azithromycin 500 mg/Dextrose 275 ml @ 275 mls/hr Q24HRS IV 04/19/18 14:00 04/23/18 14:59 Cefepime HCl 2 gm/ Dextrose 110 ml @ 220 mls/hr EVERY 12 HOURS IV 04/19/18 09:00 04/23/18 20:59 Dextrose (Dextrose 50%) 25 ml Q30M PRN IV Hypoglycemia 04/18/18 22:00 05/18/18 21:59 Dextrose (Dextrose 50%) 50 ml Q30M PRN IV Hypoglycemia 04/18/18 22:00 05/18/18 21:59 Gabapentin (Neurontin) 800 mg QID ORAL 04/19/18 09:00 05/16/18 17:59 Heparin Sodium (Porcine) (Heparin 5000 units/ml) 5,000 units EVERY 12 HOURS SUBQ 04/19/18 09:00 05/16/18 20:59 Loperamide HCl (Imodium) 2 mg QIDPRN PRN ORAL Diarrhea 04/19/18 19:30 05/18/18 19:29 Morphine Sulfate (Morphine Sulfate) 2 mg Q4H PRN IVP Moderate Pain (Pain Scale 4-6) 04/18/18 22:15 04/23/18 14:14 Ondansetron HCl (Zofran) 4 mg Q6H PRN IVP Nausea & Vomiting 04/19/18 02:15 05/16/18 14:14 Phenazopyridine HCl (Pyridium) 100 mg DAILYPRN PRN ORAL dysuria 04/19/18 14:15 05/16/18 14:14 Polyethylene Glycol (Miralax) 17 gm DAILYPRN PRN ORAL Constipation 04/19/18 14:15 05/16/18 14:14 Temazepam (Restoril) 15 mg HSPRN PRN ORAL Insomnia 04/19/18 14:15 04/23/18 14:14 Sammy Perez MD Apr 19, 2018 07:43
[2018-04-19 08:00] VITALS: BP 131/76
[2018-04-19 08:16] LABS: HEMATOCRIT 35.1 % (42.0-52.0); HEMOGLOBIN 12.3 G/DL (14.2-18.0); MEAN CORPUSCULAR VOLUME 82 FL (80-99); PLATELET COUNT 345 K/UL (150-450); RED BLOOD COUNT 4.27 M/UL (4.70-6.10); RED CELL DISTRIBUTION WIDTH 14.6 % (11.6-14.8); WHITE BLOOD COUNT 19.2 K/UL (4.8-10.8)
[2018-04-19 08:51] LABS: ALANINE AMINOTRANSFERASE 21 U/L (12-78); ALBUMIN 3.5 G/DL (3.4-5.0); ALBUMIN/GLOBULIN RATIO 0.8 (1.0-2.7); ALKALINE PHOSPHATASE 83 U/L (46-116); ANION GAP 8 mmol/L (5-15); ASPARTATE AMINO TRANSFERASE 33 U/L (15-37); BILIRUBIN,TOTAL 2.1 MG/DL (0.2-1.0); BLOOD UREA NITROGEN 10 mg/dL (7-18); CALCIUM 9.7 MG/DL (8.5-10.1); CARBON DIOXIDE 26 MMOL/L (21-32); CHLORIDE 105 MMOL/L (98-107); CREATININE 0.8 MG/DL (0.55-1.30); PHOSPHORUS 3.2 MG/DL (2.5-4.9); POTASSIUM 3.8 MMOL/L (3.5-5.1); SODIUM 139 MMOL/L (136-145)
[2018-04-19 08:52] LABS: BILIRUBIN,DIRECT 0.3 MG/DL (0.0-0.3)
[2018-04-19] MEDS: Aspirin EC 81mg tab ORAL SCH ×2 (09:00→09:17)
[2018-04-19] MEDS: Cefepime HCl 2 GM in D5W 110 ML IV SCH ×2 (09:14→22:41)
[2018-04-19] MEDS: Heparin 5000 units/ml inj SUBQ SCH ×2 (09:18→22:42)
[2018-04-19 12:00] VITALS: BP 107/48
--- NOTE | 2018-04-19 12:28 | Pulmonology Progress Note ---
Assessment/Plan Assessment/Plan Assessment/Plan Problems: (1) Sepsis (2) Sickle cell disease (3) Anemia (4) Pneumonia Stable overnight Assessment/Plan check cultures iv abx chest PT respiratory treatment CXR in a few days f/u electrolytes aspiration precaution dvt prophylaxis. 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 Microbiology Date/Time Source Procedure Growth Status 04/16/18 16:00 Blood Blood Culture - Preliminary NO GROWTH AFTER 24 HOURS Resulted 04/16/18 15:50 Blood Blood Culture - Preliminary NO GROWTH AFTER 24 HOURS Resulted 04/17/18 06:00 Indwelling Cath Urine Culture - Preliminary NO GROWTH AFTER 24 HOURS Resulted Laboratory Tests 04/18/18 05:40: White Blood Count 15.6H, Red Blood Count 4.35L, Hemoglobin 12.3L, Hematocrit 36.0L, Mean Corpuscular Volume 83, Mean Corpuscular Hemoglobin 28.3, Mean Corpuscular Hemoglobin Concent 34.1, Red Cell Distribution Width 14.9H, Platelet Count 319, Mean Platelet Volume 6.9, Neutrophils (%) (Auto) 73.3, Lymphocytes (%) (Auto) 13.8L, Monocytes (%) (Auto) 7.9, Eosinophils (%) (Auto) 3.9H, Basophils (%) (Auto) 1.1, Sodium Level 140, Potassium Level 3.9, Chloride Level 106, Carbon Dioxide Level 30, Anion Gap 4L, Blood Urea Nitrogen 9, Creatinine 0.9, Estimat Glomerular Filtration Rate , Glucose Level 130H, Calcium Level 9.4 Current Medications Medications (Trade) Dose Ordered Sig/Meseret Route PRN Reason Start Time Stop Time Status Last Admin Dose Admin Albuterol/ Ipratropium (Albuterol/ Ipratropium) 3 ml Q4H PRN HHN Shortness of Breath 04/16/18 14:15 11/5/18 14:14 Amlodipine Besylate (Norvasc) 10 mg DAILY ORAL 04/17/18 09:00 05/17/18 08:59 04/18/18 09:08 Aspirin (Ecotrin) 81 mg DAILY ORAL 04/17/18 09:00 05/17/18 08:59 04/18/18 09:07 Azithromycin 500 mg/Dextrose 275 ml @ 275 mls/hr Q24HRS IV 04/17/18 14:00 04/23/18 14:59 04/17/18 13:49 Cefepime HCl 2 gm/ Dextrose 110 ml @ 220 mls/hr EVERY 12 HOURS IV 04/16/18 21:00 04/23/18 20:59 04/18/18 09:08 Gabapentin (Neurontin) 800 mg QID ORAL 04/16/18 18:00 05/16/18 17:59 04/18/18 09:07 Heparin Sodium (Porcine) (Heparin 5000 units/ml) 5,000 units EVERY 12 HOURS SUBQ 04/16/18 21:00 05/16/18 20:59 04/18/18 09:09 Morphine Sulfate (Morphine Sulfate) 2 mg Q4H PRN IVP Moderate Pain (Pain Scale 4-6) 04/16/18 14:15 04/23/18 14:14 Ondansetron HCl (Zofran) 4 mg Q6H PRN IVP Nausea & Vomiting 04/16/18 14:15 05/16/18 14:14 Phenazopyridine HCl (Pyridium) 100 mg DAILYPRN PRN ORAL dysuria 04/16/18 14:15 05/16/18 14:14 Polyethylene Glycol (Miralax) 17 gm DAILYPRN PRN ORAL Constipation 04/16/18 14:15 05/16/18 14:14 Temazepam (Restoril) 15 mg HSPRN PRN ORAL Insomnia 04/16/18 14:15 04/23/18 14:14 Subjective ROS Limited/Unobtainable: No Allergies: Coded Allergies: ACETAMINOPHEN (Verified Allergy, Unknown, 10/27/15) HYDROCODONE (Verified Allergy, Unknown, 10/27/15) Objective Last 24 Hour Vital Signs Date Time Temp Pulse Resp B/P (MAP) Pulse Ox O2 Delivery O2 Flow Rate FiO2 11/3/18 09:14 90 134/73 04/19/18 09:00 Nasal Cannula 2.0 04/19/18 08:18 84 04/19/18 08:00 97.0 74 18 131/76 (94) 98 04/19/18 04:00 90 04/19/18 04:00 98.2 100 20 134/73 (93) 94 04/19/18 00:00 87 04/19/18 00:00 98.3 89 20 125/70 (88) 94 04/18/18 22:00 87 04/18/18 21:40 98.6 98 20 136/79 (98) 94 04/18/18 20:50 Nasal Cannula 2.0 04/18/18 20:49 Room Air 04/18/18 20:46 93 Room Air 04/18/18 20:00 98.4 117 18 127/80 (96) 95 04/18/18 16:00 98.2 114 20 130/75 (93) 94 Intake and Output 04/18/18 04/19/18 18:59 06:59 Intake Total 1045 ml Output Total 300 ml Balance 1045 ml -300 ml Intake Oral 660 ml IV Total 385 ml Output Urine Total 300 ml # Voids 4 # Bowel Movements 2 Microbiology Date/Time Source Procedure Growth Status 04/16/18 16:00 Blood Blood Culture - Preliminary NO GROWTH AFTER 48 HOURS Resulted 04/16/18 15:50 Blood Blood Culture - Preliminary NO GROWTH AFTER 48 HOURS Resulted 04/18/18 15:00 Stool Clostridium difficile Toxin Assay - Final Complete 04/17/18 06:00 Indwelling Cath Urine Culture - Final NO GROWTH AFTER 48 HOURS Complete Laboratory Tests 04/19/18 07:30: White Blood Count 19.2H, Red Blood Count 4.27L, Hemoglobin 12.3L, Hematocrit 35.1L, Mean Corpuscular Volume 82, Mean Corpuscular Hemoglobin 28.9, Mean Corpuscular Hemoglobin Concent 35.2, Red Cell Distribution Width 14.6, Platelet Count 345, Mean Platelet Volume 7.1, Neutrophils (%) (Auto) , Lymphocytes (%) ( Auto) , Monocytes (%) (Auto) , Eosinophils (%) (Auto) , Basophils (%) (Auto) , Differential Total Cells Counted 100, Neutrophils % (Manual) 80H, Lymphocytes % (Manual) 13L, Monocytes % (Manual) 7, Eosinophils % (Manual) 0, Basophils % ( Manual) 0, Band Neutrophils 0, Platelet Estimate Adequate, Platelet Morphology Normal, Anisocytosis 1+, Sodium Level 139, Potassium Level 3.8, Chloride Level 105, Carbon Dioxide Level 26, Anion Gap 8, Blood Urea Nitrogen 10, Creatinine 0.8, Estimat Glomerular Filtration Rate , Glucose Level 108H, Calcium Level 9.7 , Phosphorus Level 3.2, Magnesium Level 2.3, Total Bilirubin 2.1H, Direct Bilirubin 0.3, Aspartate Amino Transf (AST/SGOT) 33, Alanine Aminotransferase ( ALT/SGPT) 21, Alkaline Phosphatase 83, Total Protein 8.0, Albumin 3.5, Globulin 4.5, Albumin/Globulin Ratio 0.8L Current Medications Medications (Trade) Dose Ordered Sig/Meseret Route PRN Reason Start Time Stop Time Status Last Admin Dose Admin Albuterol/ Ipratropium (Albuterol/ Ipratropium) 3 ml Q4H PRN HHN Shortness of Breath 04/18/18 22:15 04/21/18 14:14 Amlodipine Besylate (Norvasc) 10 mg DAILY ORAL 04/19/18 09:00 05/17/18 08:59 04/19/18 09:14 Aspirin (Ecotrin) 81 mg DAILY ORAL 04/19/18 09:00 05/17/18 08:59 Azithromycin 500 mg/Dextrose 275 ml @ 275 mls/hr Q24HRS IV 04/19/18 14:00 04/23/18 14:59 Cefepime HCl 2 gm/ Dextrose 110 ml @ 220 mls/hr EVERY 12 HOURS IV 04/19/18 09:00 04/23/18 20:59 04/19/18 09:14 Dextrose (Dextrose 50%) 25 ml Q30M PRN IV Hypoglycemia 04/18/18 22:00 05/18/18 21:59 Dextrose (Dextrose 50%) 50 ml Q30M PRN IV Hypoglycemia 04/18/18 22:00 05/18/18 21:59 Gabapentin (Neurontin) 800 mg QID ORAL 04/19/18 09:00 05/16/18 17:59 04/19/18 09:17 Heparin Sodium (Porcine) (Heparin 5000 units/ml) 5,000 units EVERY 12 HOURS SUBQ 04/19/18 09:00 05/16/18 20:59 04/19/18 09:18 Loperamide HCl (Imodium) 2 mg QIDPRN PRN ORAL Diarrhea 04/19/18 19:30 05/18/18 19:29 Morphine Sulfate (Morphine Sulfate) 2 mg Q4H PRN IVP Moderate Pain (Pain Scale 4-6) 04/18/18 22:15 04/23/18 14:14 Ondansetron HCl (Zofran) 4 mg Q6H PRN IVP Nausea & Vomiting 04/19/18 02:15 05/16/18 14:14 Phenazopyridine HCl (Pyridium) 100 mg DAILYPRN PRN ORAL dysuria 04/19/18 14:15 05/16/18 14:14 Polyethylene Glycol (Miralax) 17 gm DAILYPRN PRN ORAL Constipation 04/19/18 14:15 05/16/18 14:14 Temazepam (Restoril) 15 mg HSPRN PRN ORAL Insomnia 04/19/18 14:15 04/23/18 14:14 Sammy Ham MD Apr 19, 2018 12:28
[2018-04-19] MEDS ORDERED: Miralax 17gm pkt ORAL PRN (14:15)
[2018-04-19] MEDS: Azithromycin 500 MG in D5W 275 ML IV SCH (14:23)
[2018-04-19 16:30] VITALS: BP 121/61
[2018-04-19] MEDS: Morphine Sulfate 2mg/ml Inj IVP PRN ×2 (17:44→22:47)
[2018-04-19] MEDS ORDERED: Loperamide 2mg cap ORAL PRN (19:30)
[2018-04-19 20:00] VITALS: BP 114/63
[2018-04-20] VITALS: BP 115/65
[2018-04-20 04:00] VITALS: BP 115/65
[2018-04-20 07:53] VITALS: BP 130/72
[2018-04-20] MEDS: Aspirin EC 81mg tab ORAL SCH (08:19)
[2018-04-20] MEDS: Cefepime HCl 2 GM in D5W 110 ML IV SCH ×2 (08:19→21:01)
[2018-04-20 08:20] LABS: BASOPHILS % (AUTO) 1.2 % (0.0-2.0); HEMATOCRIT 35.7 % (42.0-52.0); HEMOGLOBIN 12.3 G/DL (14.2-18.0); LYMPHOCYTES % (AUTO) 38.3 % (20.0-45.0); MEAN CORPUSCULAR VOLUME 84 FL (80-99); MONOCYTES % (AUTO) 6.4 % (1.0-10.0); PLATELET COUNT 323 K/UL (150-450); RED BLOOD COUNT 4.28 M/UL (4.70-6.10); WHITE BLOOD COUNT 15.4 K/UL (4.8-10.8)
[2018-04-20] MEDS: Heparin 5000 units/ml inj SUBQ SCH ×2 (08:21→21:04)
--- NOTE | 2018-04-20 08:29 | General Progress Note ---
Assessment/Plan Problem List: (1) Hip pain ICD Codes: M25.559 - Pain in unspecified hip SNOMED: 65682305 (2) Sepsis ICD Codes: A41.9 - Sepsis, unspecified organism SNOMED: 00148868 (3) Sickle cell disease ICD Codes: D57.1 - Sickle cell disease SNOMED: 640586691 (4) Anemia ICD Codes: D64.9 - Anemia SNOMED: 292060872 (5) Pneumonia ICD Codes: J18.9 - Pneumonia, unspecified organism SNOMED: 861704882 Status: stable, progressing Assessment/Plan ot pt diet abx o2 pulm tx pain control cbc bmp am Subjective Constitutional: Reports: weakness Allergies: Coded Allergies: ACETAMINOPHEN (Verified Allergy, Unknown, 10/27/15) HYDROCODONE (Verified Allergy, Unknown, 10/27/15) All Systems: reviewed and negative except above Subjective sleepy calm in bed Objective Last 24 Hour Vital Signs Date Time Temp Pulse Resp B/P (MAP) Pulse Ox O2 Delivery O2 Flow Rate FiO2 04/20/18 08:19 93 130/72 04/20/18 07:53 98.1 93 18 130/72 (91) 99 04/20/18 04:00 98.2 93 23 115/65 (82) 98 04/20/18 04:00 85 04/20/18 00:00 84 04/20/18 00:00 98.2 90 20 115/65 (82) 100 04/19/18 22:01 Room Air 21 04/19/18 22:01 96 Room Air 04/19/18 21:00 Room Air 04/19/18 20:00 98.2 89 21 114/63 (80) 94 04/19/18 20:00 82 04/19/18 18:14 98.1 04/19/18 16:30 98.1 85 20 121/61 (81) 96 04/19/18 15:41 125 04/19/18 12:00 97.9 62 18 107/48 (67) 96 04/19/18 11:53 85 04/19/18 09:14 90 134/73 04/19/18 09:00 Nasal Cannula 2.0 Intake and Output 04/19/18 04/20/18 18:59 06:59 Intake Total 3203 ml Balance 3203 ml Intake Oral 450 ml IV Total 2753 ml # Voids 3 2 # Bowel Movements 1 Laboratory Tests 04/20/18 07:35: White Blood Count [Pending], Red Blood Count [Pending], Hemoglobin [Pending], Hematocrit [Pending], Mean Corpuscular Volume [Pending], Mean Corpuscular Hemoglobin [Pending], Mean Corpuscular Hemoglobin Concent [Pending], Red Cell Distribution Width [Pending], Platelet Count [Pending], Mean Platelet Volume [ Pending], Neutrophils (%) (Auto) [Pending], Lymphocytes (%) (Auto) [Pending], Monocytes (%) (Auto) [Pending], Eosinophils (%) (Auto) [Pending], Basophils (%) (Auto) [Pending] 04/20/18 07:55: Sodium Level [Pending], Potassium Level [Pending], Chloride Level [Pending], Carbon Dioxide Level [Pending], Blood Urea Nitrogen [Pending], Creatinine [ Pending], Estimat Glomerular Filtration Rate [Pending], Glucose Level [Pending] , Calcium Level [Pending] Height (Feet): 6 Height (Inches): 0.50 Weight (Pounds): 222 General Appearance: lethargic EENT: normal ENT inspection Neck: normal alignment Cardiovascular: normal peripheral pulses, normal rate, regular rhythm Respiratory/Chest: chest wall non-tender, decreased breath sounds Abdomen: normal bowel sounds, non tender, soft Extremities: normal inspection Edema: no edema noted Arm (L), no edema noted Arm (R), no edema noted Leg (L), no edema noted Leg (R), no edema noted Pedal (L), no edema noted Pedal (R), no edema noted Generalized Neurologic: responsive, motor weakness Skin: normal pigmentation, warm/dry Alen Goldman DO Apr 20, 2018 08:29
[2018-04-20] MEDS: Morphine Sulfate 2mg/ml Inj IVP PRN ×4 (08:31→22:46)
[2018-04-20 08:43] LABS: ANION GAP 7 mmol/L (5-15); BLOOD UREA NITROGEN 10 mg/dL (7-18); CALCIUM 9.9 MG/DL (8.5-10.1); CARBON DIOXIDE 28 MMOL/L (21-32); CHLORIDE 105 MMOL/L (98-107); CREATININE 0.8 MG/DL (0.55-1.30); SODIUM 139 MMOL/L (136-145)
--- NOTE | 2018-04-20 09:26 | Pulmonology Progress Note ---
Assessment/Plan Assessment/Plan Assessment/Plan Problems: (1) Sepsis (2) Sickle cell disease (3) Anemia (4) Pneumonia Stable overnight Assessment/Plan check cultures iv abx chest PT respiratory treatment CXR in a few days f/u electrolytes aspiration precaution dvt prophylaxis. 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 Microbiology Date/Time Source Procedure Growth Status 04/16/18 16:00 Blood Blood Culture - Preliminary NO GROWTH AFTER 24 HOURS Resulted 04/16/18 15:50 Blood Blood Culture - Preliminary NO GROWTH AFTER 24 HOURS Resulted 04/17/18 06:00 Indwelling Cath Urine Culture - Preliminary NO GROWTH AFTER 24 HOURS Resulted Laboratory Tests 04/18/18 05:40: White Blood Count 15.6H, Red Blood Count 4.35L, Hemoglobin 12.3L, Hematocrit 36.0L, Mean Corpuscular Volume 83, Mean Corpuscular Hemoglobin 28.3, Mean Corpuscular Hemoglobin Concent 34.1, Red Cell Distribution Width 14.9H, Platelet Count 319, Mean Platelet Volume 6.9, Neutrophils (%) (Auto) 73.3, Lymphocytes (%) (Auto) 13.8L, Monocytes (%) (Auto) 7.9, Eosinophils (%) (Auto) 3.9H, Basophils (%) (Auto) 1.1, Sodium Level 140, Potassium Level 3.9, Chloride Level 106, Carbon Dioxide Level 30, Anion Gap 4L, Blood Urea Nitrogen 9, Creatinine 0.9, Estimat Glomerular Filtration Rate , Glucose Level 130H, Calcium Level 9.4 Current Medications Medications (Trade) Dose Ordered Sig/Meseret Route PRN Reason Start Time Stop Time Status Last Admin Dose Admin Albuterol/ Ipratropium (Albuterol/ Ipratropium) 3 ml Q4H PRN HHN Shortness of Breath 04/16/18 14:15 11/5/18 14:14 Amlodipine Besylate (Norvasc) 10 mg DAILY ORAL 04/17/18 09:00 05/17/18 08:59 04/18/18 09:08 Aspirin (Ecotrin) 81 mg DAILY ORAL 04/17/18 09:00 05/17/18 08:59 04/18/18 09:07 Azithromycin 500 mg/Dextrose 275 ml @ 275 mls/hr Q24HRS IV 04/17/18 14:00 04/23/18 14:59 04/17/18 13:49 Cefepime HCl 2 gm/ Dextrose 110 ml @ 220 mls/hr EVERY 12 HOURS IV 04/16/18 21:00 04/23/18 20:59 04/18/18 09:08 Gabapentin (Neurontin) 800 mg QID ORAL 04/16/18 18:00 05/16/18 17:59 04/18/18 09:07 Heparin Sodium (Porcine) (Heparin 5000 units/ml) 5,000 units EVERY 12 HOURS SUBQ 04/16/18 21:00 05/16/18 20:59 04/18/18 09:09 Morphine Sulfate (Morphine Sulfate) 2 mg Q4H PRN IVP Moderate Pain (Pain Scale 4-6) 04/16/18 14:15 04/23/18 14:14 Ondansetron HCl (Zofran) 4 mg Q6H PRN IVP Nausea & Vomiting 04/16/18 14:15 05/16/18 14:14 Phenazopyridine HCl (Pyridium) 100 mg DAILYPRN PRN ORAL dysuria 04/16/18 14:15 05/16/18 14:14 Polyethylene Glycol (Miralax) 17 gm DAILYPRN PRN ORAL Constipation 04/16/18 14:15 05/16/18 14:14 Temazepam (Restoril) 15 mg HSPRN PRN ORAL Insomnia 04/16/18 14:15 04/23/18 14:14 Subjective ROS Limited/Unobtainable: No Allergies: Coded Allergies: ACETAMINOPHEN (Verified Allergy, Unknown, 10/27/15) HYDROCODONE (Verified Allergy, Unknown, 10/27/15) Objective Last 24 Hour Vital Signs Date Time Temp Pulse Resp B/P (MAP) Pulse Ox O2 Delivery O2 Flow Rate FiO2 11/4/18 09:14 Room Air 21 04/20/18 09:14 95 Room Air 04/20/18 08:19 93 130/72 04/20/18 07:53 98.1 93 18 130/72 (91) 99 04/20/18 04:00 98.2 93 23 115/65 (82) 98 04/20/18 04:00 85 04/20/18 00:00 84 04/20/18 00:00 98.2 90 20 115/65 (82) 100 04/19/18 22:01 Room Air 21 04/19/18 22:01 96 Room Air 04/19/18 21:00 Room Air 04/19/18 20:00 98.2 89 21 114/63 (80) 94 04/19/18 20:00 82 04/19/18 18:14 98.1 04/19/18 16:30 98.1 85 20 121/61 (81) 96 04/19/18 15:41 125 04/19/18 12:00 97.9 62 18 107/48 (67) 96 04/19/18 11:53 85 Intake and Output 04/19/18 04/20/18 18:59 06:59 Intake Total 3203 ml Balance 3203 ml Intake Oral 450 ml IV Total 2753 ml # Voids 3 2 # Bowel Movements 1 Microbiology Date/Time Source Procedure Growth Status 04/18/18 15:00 Stool Clostridium difficile Toxin Assay - Final Complete Laboratory Tests 04/20/18 07:35: White Blood Count 15.4H, Red Blood Count 4.28L, Hemoglobin 12.3L, Hematocrit 35.7L, Mean Corpuscular Volume 84, Mean Corpuscular Hemoglobin 28.8, Mean Corpuscular Hemoglobin Concent 34.5, Red Cell Distribution Width 15.0H, Platelet Count 323, Mean Platelet Volume 6.8, Neutrophils (%) (Auto) 52.0, Lymphocytes (%) (Auto) 38.3, Monocytes (%) (Auto) 6.4, Eosinophils (%) (Auto) 2.0, Basophils (%) (Auto) 1.2 04/20/18 07:55: Sodium Level 139, Potassium Level 4.0, Chloride Level 105, Carbon Dioxide Level 28, Anion Gap 7, Blood Urea Nitrogen 10, Creatinine 0.8, Estimat Glomerular Filtration Rate , Glucose Level 96, Calcium Level 9.9 Current Medications Medications (Trade) Dose Ordered Sig/Meseret Route PRN Reason Start Time Stop Time Status Last Admin Dose Admin Albuterol/ Ipratropium (Albuterol/ Ipratropium) 3 ml Q4H PRN HHN Shortness of Breath 04/18/18 22:15 04/21/18 14:14 Amlodipine Besylate (Norvasc) 10 mg DAILY ORAL 04/19/18 09:00 05/17/18 08:59 04/20/18 08:19 Aspirin (Ecotrin) 81 mg DAILY ORAL 04/19/18 09:00 05/17/18 08:59 04/20/18 08:19 Azithromycin 500 mg/Dextrose 275 ml @ 275 mls/hr Q24HRS IV 04/19/18 14:00 04/23/18 14:59 04/19/18 14:23 Cefepime HCl 2 gm/ Dextrose 110 ml @ 220 mls/hr EVERY 12 HOURS IV 04/19/18 09:00 04/23/18 20:59 04/20/18 08:19 Dextrose (Dextrose 50%) 25 ml Q30M PRN IV Hypoglycemia 04/18/18 22:00 05/18/18 21:59 Dextrose (Dextrose 50%) 50 ml Q30M PRN IV Hypoglycemia 04/18/18 22:00 05/18/18 21:59 Gabapentin (Neurontin) 800 mg QID ORAL 04/19/18 09:00 05/16/18 17:59 04/20/18 08:20 Heparin Sodium (Porcine) (Heparin 5000 units/ml) 5,000 units EVERY 12 HOURS SUBQ 04/19/18 09:00 05/16/18 20:59 04/20/18 08:21 Loperamide HCl (Imodium) 2 mg QIDPRN PRN ORAL Diarrhea 04/19/18 19:30 05/18/18 19:29 Morphine Sulfate (Morphine Sulfate) 2 mg Q4H PRN IVP Moderate Pain (Pain Scale 4-6) 04/18/18 22:15 04/23/18 14:14 04/20/18 08:31 Ondansetron HCl (Zofran) 4 mg Q6H PRN IVP Nausea & Vomiting 04/19/18 02:15 05/16/18 14:14 Phenazopyridine HCl (Pyridium) 100 mg DAILYPRN PRN ORAL dysuria 04/19/18 14:15 05/16/18 14:14 Polyethylene Glycol (Miralax) 17 gm DAILYPRN PRN ORAL Constipation 04/19/18 14:15 05/16/18 14:14 Temazepam (Restoril) 15 mg HSPRN PRN ORAL Insomnia 04/19/18 14:15 04/23/18 14:14 Sammy Ham MD Apr 20, 2018 09:26
[2018-04-20 12:00] VITALS: BP 128/79
[2018-04-20] MEDS: Azithromycin 500 MG in D5W 275 ML IV SCH (13:11)
[2018-04-20 15:54] VITALS: BP 107/71
[2018-04-20 20:00] VITALS: BP 118/64
[2018-04-21] VITALS: BP 125/71
[2018-04-21] MEDS: Morphine Sulfate 2mg/ml Inj IVP PRN ×4 (02:52→18:35)
[2018-04-21 04:00] VITALS: BP 125/71
[2018-04-21 08:00] VITALS: BP 124/57
[2018-04-21 08:05] LABS: BASOPHILS % (AUTO) 1.5 % (0.0-2.0); EOSINOPHILS % (AUTO) 1.8 % (0.0-3.0); HEMATOCRIT 34.6 % (42.0-52.0); HEMOGLOBIN 12.4 G/DL (14.2-18.0); MEAN CORPUSCULAR VOLUME 83 FL (80-99); MONOCYTES % (AUTO) 6.3 % (1.0-10.0); NEUTROPHILS % (AUTO) 46.5 % (45.0-75.0); PLATELET COUNT 334 K/UL (150-450); RED BLOOD COUNT 4.19 M/UL (4.70-6.10); RED CELL DISTRIBUTION WIDTH 14.9 % (11.6-14.8); WHITE BLOOD COUNT 16.8 K/UL (4.8-10.8)
[2018-04-21 08:19] LABS: ANION GAP 7 mmol/L (5-15); BLOOD UREA NITROGEN 8 mg/dL (7-18); CALCIUM 9.8 MG/DL (8.5-10.1); CARBON DIOXIDE 26 MMOL/L (21-32); CHLORIDE 104 MMOL/L (98-107); CREATININE 0.8 MG/DL (0.55-1.30); SODIUM 137 MMOL/L (136-145)
[2018-04-21] MEDS: Aspirin EC 81mg tab ORAL SCH (08:33)
[2018-04-21] MEDS: Cefepime HCl 2 GM in D5W 110 ML IV SCH ×2 (08:33→20:48)
[2018-04-21] MEDS: Heparin 5000 units/ml inj SUBQ SCH ×2 (08:36→20:51)
--- NOTE | 2018-04-21 09:33 | Infectious Diseases Prog Note ---
Assessment/Plan Assessment/Plan ASSESSMENT: The patient is an 82-year-old male with, Leukocytosis persistent Left lower lobe pneumonia (community-acquired) Chest x-ray showed left basilar infiltrate Rule out probable bacteremia Bl vascular necrosis hips cell anemia Sciatica pain History of hyperlipidemia History of sickle cell disease Hiatal hernia. PLAN: continue the patient on cefepime and Zithromax day # 6/ 7 Monitor CBC Monitor BMP Monitor cultures Monitor chest x-ray Subjective Allergies: Coded Allergies: ACETAMINOPHEN (Verified Allergy, Unknown, 10/27/15) HYDROCODONE (Verified Allergy, Unknown, 10/27/15) Subjective Persistent leukocytosis Comfortable Objective Vital Signs Last 24 Hour Vital Signs Date Time Temp Pulse Resp B/P (MAP) Pulse Ox O2 Delivery O2 Flow Rate FiO2 04/21/18 08:34 63 143/93 04/21/18 04:00 98.3 106 20 125/71 (89) 99 04/21/18 04:00 74 04/21/18 04:00 74 04/21/18 00:00 103 04/21/18 00:00 99.1 107 20 125/71 (89) 94 04/21/18 00:00 103 04/20/18 21:00 Room Air 04/20/18 20:00 98.2 84 20 118/64 (82) 96 04/20/18 20:00 95 04/20/18 16:00 78 04/20/18 15:54 98.3 90 20 107/71 (83) 96 04/20/18 12:00 98.0 75 18 128/79 (95) 97 04/20/18 12:00 75 Height (Feet): 6 Height (Inches): 0.50 Weight (Pounds): 222 HEENT: mucous membranes moist Respiratory/Chest: no respiratory distress Cardiovascular: normal rate Abdomen: soft, non tender Microbiology Date/Time Source Procedure Growth Status 04/18/18 15:00 Stool Stool Culture - Preliminary NO SALMONELLA,SHIGELLA OR CAMPYLOBACT... Resulted 04/18/18 15:00 Stool Clostridium difficile Toxin Assay - Final Complete Laboratory Tests Test 04/21/18 07:30 White Blood Count 16.8 K/UL (4.8-10.8) H Red Blood Count 4.19 M/UL (4.70-6.10) L Hemoglobin 12.4 G/DL (14.2-18.0) L Hematocrit 34.6 % (42.0-52.0) L Mean Corpuscular Volume 83 FL (80-99) Mean Corpuscular Hemoglobin 29.5 PG (27.0-31.0) Mean Corpuscular Hemoglobin Concent 35.8 G/DL (32.0-36.0) Red Cell Distribution Width 14.9 % (11.6-14.8) H Platelet Count 334 K/UL (150-450) Mean Platelet Volume 6.7 FL (6.5-10.1) Neutrophils (%) (Auto) 46.5 % (45.0-75.0) Lymphocytes (%) (Auto) 44.0 % (20.0-45.0) Monocytes (%) (Auto) 6.3 % (1.0-10.0) Eosinophils (%) (Auto) 1.8 % (0.0-3.0) Basophils (%) (Auto) 1.5 % (0.0-2.0) Sodium Level 137 MMOL/L (136-145) Potassium Level 4.0 MMOL/L (3.5-5.1) Chloride Level 104 MMOL/L (98-107) Carbon Dioxide Level 26 MMOL/L (21-32) Anion Gap 7 mmol/L (5-15) Blood Urea Nitrogen 8 mg/dL (7-18) Creatinine 0.8 MG/DL (0.55-1.30) Estimat Glomerular Filtration Rate mL/min (>60) Glucose Level 100 MG/DL (74-106) Calcium Level 9.8 MG/DL (8.5-10.1) Current Medications Medications (Trade) Dose Ordered Sig/Meseret Route PRN Reason Start Time Stop Time Status Last Admin Dose Admin Albuterol/ Ipratropium (Albuterol/ Ipratropium) 3 ml Q4H PRN HHN Shortness of Breath 04/18/18 22:15 04/21/18 14:14 Amlodipine Besylate (Norvasc) 10 mg DAILY ORAL 04/19/18 09:00 05/17/18 08:59 04/21/18 08:34 Aspirin (Ecotrin) 81 mg DAILY ORAL 04/19/18 09:00 05/17/18 08:59 04/21/18 08:33 Azithromycin 500 mg/Dextrose 275 ml @ 275 mls/hr Q24HRS IV 04/19/18 14:00 04/23/18 14:59 04/20/18 13:11 Cefepime HCl 2 gm/ Dextrose 110 ml @ 220 mls/hr EVERY 12 HOURS IV 04/19/18 09:00 04/23/18 20:59 04/21/18 08:33 Dextrose (Dextrose 50%) 25 ml Q30M PRN IV Hypoglycemia 04/18/18 22:00 05/18/18 21:59 Dextrose (Dextrose 50%) 50 ml Q30M PRN IV Hypoglycemia 04/18/18 22:00 05/18/18 21:59 Gabapentin (Neurontin) 800 mg QID ORAL 04/19/18 09:00 05/16/18 17:59 04/21/18 08:33 Heparin Sodium (Porcine) (Heparin 5000 units/ml) 5,000 units EVERY 12 HOURS SUBQ 04/19/18 09:00 05/16/18 20:59 04/21/18 08:36 Loperamide HCl (Imodium) 2 mg QIDPRN PRN ORAL Diarrhea 04/19/18 19:30 05/18/18 19:29 Morphine Sulfate (Morphine Sulfate) 2 mg Q4H PRN IVP Moderate Pain (Pain Scale 4-6) 04/18/18 22:15 04/23/18 14:14 04/21/18 08:35 Ondansetron HCl (Zofran) 4 mg Q6H PRN IVP Nausea & Vomiting 04/19/18 02:15 05/16/18 14:14 Phenazopyridine HCl (Pyridium) 100 mg DAILYPRN PRN ORAL dysuria 04/19/18 14:15 05/16/18 14:14 Polyethylene Glycol (Miralax) 17 gm DAILYPRN PRN ORAL Constipation 04/19/18 14:15 05/16/18 14:14 Temazepam (Restoril) 15 mg HSPRN PRN ORAL Insomnia 04/19/18 14:15 04/23/18 14:14 Anjel Bob MD Apr 21, 2018 09:33
--- NOTE | 2018-04-21 11:28 | Pulmonology Progress Note ---
Assessment/Plan Problems: (1) Sepsis (2) Pneumonia (3) Leukocytosis (4) Anemia (5) Sickle cell disease Assessment/Plan check cultures, all negative so far old records checks, pt has chronic leukocytosis, will order blood smear iv abx chest PT respiratory treatment CXR pending f/u electrolytes aspiration precaution dvt prophylaxis. Subjective ROS Limited/Unobtainable: No Constitutional: Reports: no symptoms HEENT: Repors: no symptoms Respiratory: Reports: no symptoms Allergies: Coded Allergies: ACETAMINOPHEN (Verified Allergy, Unknown, 10/27/15) HYDROCODONE (Verified Allergy, Unknown, 10/27/15) Objective Last 24 Hour Vital Signs Date Time Temp Pulse Resp B/P (MAP) Pulse Ox O2 Delivery O2 Flow Rate FiO2 04/21/18 09:00 Room Air 04/21/18 08:34 63 143/93 04/21/18 08:00 99.0 77 18 124/57 (79) 94 04/21/18 08:00 102 04/21/18 04:00 98.3 106 20 125/71 (89) 99 04/21/18 04:00 74 04/21/18 04:00 74 04/21/18 00:00 103 04/21/18 00:00 99.1 107 20 125/71 (89) 94 04/21/18 00:00 103 04/20/18 21:00 Room Air 04/20/18 20:00 98.2 84 20 118/64 (82) 96 04/20/18 20:00 95 04/20/18 16:00 78 04/20/18 15:54 98.3 90 20 107/71 (83) 96 04/20/18 12:00 98.0 75 18 128/79 (95) 97 04/20/18 12:00 75 Intake and Output 04/20/18 04/21/18 18:59 06:59 Intake Total 855 ml Output Total 200 ml 600 ml Balance 655 ml -600 ml Intake Oral 360 ml IV Total 495 ml Output Urine Total 200 ml 600 ml # Voids 2 # Bowel Movements 1 General Appearance: WD/WN HEENT: normocephalic, atraumatic Respiratory/Chest: chest wall non-tender, lungs clear, normal breath sounds Cardiovascular: normal peripheral pulses, normal rate Abdomen: normal bowel sounds, soft, non tender Extremities: no cyanosis Skin: no rash 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 Microbiology Date/Time Source Procedure Growth Status 04/18/18 15:00 Stool Stool Culture - Preliminary Resulted 04/18/18 15:00 Stool Clostridium difficile Toxin Assay - Final Complete Laboratory Tests 04/21/18 07:30: White Blood Count 16.8H, Red Blood Count 4.19L, Hemoglobin 12.4L, Hematocrit 34.6L, Mean Corpuscular Volume 83, Mean Corpuscular Hemoglobin 29.5, Mean Corpuscular Hemoglobin Concent 35.8, Red Cell Distribution Width 14.9H, Platelet Count 334, Mean Platelet Volume 6.7, Neutrophils (%) (Auto) 46.5, Lymphocytes (%) (Auto) 44.0, Monocytes (%) (Auto) 6.3, Eosinophils (%) (Auto) 1.8, Basophils (%) (Auto) 1.5, Sodium Level 137, Potassium Level 4.0, Chloride Level 104, Carbon Dioxide Level 26, Anion Gap 7, Blood Urea Nitrogen 8, Creatinine 0.8, Estimat Glomerular Filtration Rate , Glucose Level 100, Calcium Level 9.8 Current Medications Medications (Trade) Dose Ordered Sig/Meseret Route PRN Reason Start Time Stop Time Status Last Admin Dose Admin Albuterol/ Ipratropium (Albuterol/ Ipratropium) 3 ml Q4H PRN HHN Shortness of Breath 04/18/18 22:15 04/21/18 14:14 Amlodipine Besylate (Norvasc) 10 mg DAILY ORAL 04/19/18 09:00 05/17/18 08:59 04/21/18 08:34 Aspirin (Ecotrin) 81 mg DAILY ORAL 04/19/18 09:00 05/17/18 08:59 04/21/18 08:33 Azithromycin 500 mg/Dextrose 275 ml @ 275 mls/hr Q24HRS IV 04/19/18 14:00 04/23/18 14:59 04/20/18 13:11 Cefepime HCl 2 gm/ Dextrose 110 ml @ 220 mls/hr EVERY 12 HOURS IV 04/19/18 09:00 04/23/18 20:59 04/21/18 08:33 Dextrose (Dextrose 50%) 25 ml Q30M PRN IV Hypoglycemia 04/18/18 22:00 05/18/18 21:59 Dextrose (Dextrose 50%) 50 ml Q30M PRN IV Hypoglycemia 04/18/18 22:00 05/18/18 21:59 Gabapentin (Neurontin) 800 mg QID ORAL 04/19/18 09:00 05/16/18 17:59 04/21/18 08:33 Heparin Sodium (Porcine) (Heparin 5000 units/ml) 5,000 units EVERY 12 HOURS SUBQ 04/19/18 09:00 05/16/18 20:59 04/21/18 08:36 Loperamide HCl (Imodium) 2 mg QIDPRN PRN ORAL Diarrhea 04/19/18 19:30 05/18/18 19:29 Morphine Sulfate (Morphine Sulfate) 2 mg Q4H PRN IVP Moderate Pain (Pain Scale 4-6) 04/18/18 22:15 04/23/18 14:14 04/21/18 08:35 Ondansetron HCl (Zofran) 4 mg Q6H PRN IVP Nausea & Vomiting 04/19/18 02:15 05/16/18 14:14 Phenazopyridine HCl (Pyridium) 100 mg DAILYPRN PRN ORAL dysuria 04/19/18 14:15 05/16/18 14:14 Polyethylene Glycol (Miralax) 17 gm DAILYPRN PRN ORAL Constipation 04/19/18 14:15 05/16/18 14:14 Temazepam (Restoril) 15 mg HSPRN PRN ORAL Insomnia 04/19/18 14:15 04/23/18 14:14 Eamon Fuller MD Apr 21, 2018 11:28
[2018-04-21 11:58] VITALS: BP 135/74
--- NOTE | 2018-04-21 13:46 | General Progress Note ---
Assessment/Plan Problem List: (1) Hip pain ICD Codes: M25.559 - Pain in unspecified hip SNOMED: 21598353 (2) Sepsis ICD Codes: A41.9 - Sepsis, unspecified organism SNOMED: 17385135 (3) Sickle cell disease ICD Codes: D57.1 - Sickle cell disease SNOMED: 930135839 (4) Anemia ICD Codes: D64.9 - Anemia SNOMED: 646988090 (5) Pneumonia ICD Codes: J18.9 - Pneumonia, unspecified organism SNOMED: 358735163 Status: stable, progressing Assessment/Plan ot pt diet abx o2 pulm tx pain control cbc bmp am Subjective Constitutional: Reports: weakness Allergies: Coded Allergies: ACETAMINOPHEN (Verified Allergy, Unknown, 10/27/15) HYDROCODONE (Verified Allergy, Unknown, 10/27/15) All Systems: reviewed and negative except above Subjective sleepy calm in bed Objective Last 24 Hour Vital Signs Date Time Temp Pulse Resp B/P (MAP) Pulse Ox O2 Delivery O2 Flow Rate FiO2 04/21/18 12:00 82 04/21/18 11:58 98.6 78 9 135/74 (94) 95 04/21/18 09:00 Room Air 04/21/18 08:34 63 143/93 04/21/18 08:00 99.0 77 18 124/57 (79) 94 04/21/18 08:00 102 04/21/18 04:00 98.3 106 20 125/71 (89) 99 04/21/18 04:00 74 04/21/18 04:00 74 04/21/18 00:00 103 04/21/18 00:00 99.1 107 20 125/71 (89) 94 04/21/18 00:00 103 04/20/18 21:00 Room Air 04/20/18 20:00 98.2 84 20 118/64 (82) 96 04/20/18 20:00 95 04/20/18 16:00 78 04/20/18 15:54 98.3 90 20 107/71 (83) 96 Intake and Output 04/20/18 04/21/18 18:59 06:59 Intake Total 855 ml Output Total 200 ml 600 ml Balance 655 ml -600 ml Intake Oral 360 ml IV Total 495 ml Output Urine Total 200 ml 600 ml # Voids 2 # Bowel Movements 1 Laboratory Tests 11/5/18 07:30: White Blood Count 16.8H, Red Blood Count 4.19L, Hemoglobin 12.4L, Hematocrit 34.6L, Mean Corpuscular Volume 83, Mean Corpuscular Hemoglobin 29.5, Mean Corpuscular Hemoglobin Concent 35.8, Red Cell Distribution Width 14.9H, Platelet Count 334, Mean Platelet Volume 6.7, Neutrophils (%) (Auto) 46.5, Lymphocytes (%) (Auto) 44.0, Monocytes (%) (Auto) 6.3, Eosinophils (%) (Auto) 1.8, Basophils (%) (Auto) 1.5, Neutrophils % (Manual) [Pending], Lymphocytes % ( Manual) [Pending], Platelet Estimate [Pending], Platelet Morphology [Pending], Sodium Level 137, Potassium Level 4.0, Chloride Level 104, Carbon Dioxide Level 26, Anion Gap 7, Blood Urea Nitrogen 8, Creatinine 0.8, Estimat Glomerular Filtration Rate , Glucose Level 100, Calcium Level 9.8, Lactate Dehydrogenase [ Pending], Fraction LD 1 [Pending], Fraction LD 2 [Pending], Fraction LD 3 [ Pending], Fraction LD 4 [Pending], Fraction LD 5 [Pending] Height (Feet): 6 Height (Inches): 0.50 Weight (Pounds): 222 General Appearance: lethargic EENT: normal ENT inspection Neck: normal alignment Cardiovascular: normal peripheral pulses, normal rate, regular rhythm Respiratory/Chest: chest wall non-tender, lungs clear, normal breath sounds Abdomen: normal bowel sounds, non tender, soft Extremities: normal inspection Edema: no edema noted Arm (L), no edema noted Arm (R), no edema noted Leg (L), no edema noted Leg (R), no edema noted Pedal (L), no edema noted Pedal (R), no edema noted Generalized Neurologic: motor weakness Skin: normal pigmentation, warm/dry Alen Goldman DO Apr 21, 2018 13:46
--- NOTE | 2018-04-21 14:09 | Diagnostic Imaging Report ---
Indication: Dyspnea Comparison: 04/16/2018 A single view chest radiograph was obtained. Findings: Exam limited by low lung volumes. Heart size is accentuated and prominent. Interstitium and vascularity are mildly prominent but stable. Bones appear osteopenic. IMPRESSION: No acute disease. Abnormal bone
[2018-04-21] MEDS: Azithromycin 500 MG in D5W 275 ML IV SCH (14:29)
[2018-04-21 16:00] VITALS: BP 148/73
[2018-04-21 20:00] VITALS: BP 143/79
[2018-04-22] VITALS: BP 132/74
[2018-04-22 04:00] VITALS: BP 134/72
[2018-04-22 07:09] LABS: ANION GAP 9 mmol/L (5-15); BLOOD UREA NITROGEN 9 mg/dL (7-18); CALCIUM 9.9 MG/DL (8.5-10.1); CARBON DIOXIDE 27 MMOL/L (21-32); CHLORIDE 105 MMOL/L (98-107); CREATININE 0.8 MG/DL (0.55-1.30); POTASSIUM 3.9 MMOL/L (3.5-5.1); SODIUM 141 MMOL/L (136-145)
[2018-04-22 07:19] LABS: BASOPHILS % (AUTO) 1.2 % (0.0-2.0); EOSINOPHILS % (AUTO) 1.5 % (0.0-3.0); HEMATOCRIT 33.3 % (42.0-52.0); HEMOGLOBIN 11.7 G/DL (14.2-18.0); MEAN CORPUSCULAR VOLUME 83 FL (80-99); MONOCYTES % (AUTO) 7.9 % (1.0-10.0); NEUTROPHILS % (AUTO) 50.3 % (45.0-75.0); PLATELET COUNT 333 K/UL (150-450); RED BLOOD COUNT 4.02 M/UL (4.70-6.10); RED CELL DISTRIBUTION WIDTH 15.1 % (11.6-14.8); WHITE BLOOD COUNT 15.7 K/UL (4.8-10.8)
[2018-04-22 08:00] VITALS: BP 134/82
[2018-04-22] MEDS: Aspirin EC 81mg tab ORAL SCH (08:33)
[2018-04-22] MEDS: Heparin 5000 units/ml inj SUBQ SCH ×2 (08:35→20:29)
[2018-04-22] MEDS: Cefepime HCl 2 GM in D5W 110 ML IV SCH ×2 (08:36→20:29)
--- NOTE | 2018-04-22 09:16 | Pulmonology Progress Note ---
Assessment/Plan Problems: (1) Leukocytosis (2) Sepsis (3) Pneumonia (4) Anemia (5) Sickle cell disease Assessment/Plan check cultures, all negative so far old records checks, pt has chronic leukocytosis, will order blood smear d/w Pathologist, she will call me back with blood smear reprot iv abx chest PT respiratory treatment CXR improving f/u electrolytes aspiration precaution dvt prophylaxis. Subjective Interval Events: asymptomatic Allergies: Coded Allergies: ACETAMINOPHEN (Verified Allergy, Unknown, 10/27/15) HYDROCODONE (Verified Allergy, Unknown, 10/27/15) Objective Last 24 Hour Vital Signs Date Time Temp Pulse Resp B/P (MAP) Pulse Ox O2 Delivery O2 Flow Rate FiO2 04/22/18 08:33 88 134/82 04/22/18 08:00 99.5 88 20 134/82 (99) 94 04/22/18 04:00 110 04/22/18 04:00 97.0 74 20 134/72 (92) 95 04/22/18 00:00 75 04/22/18 00:00 98.0 74 20 132/74 (93) 96 04/21/18 21:00 Room Air 04/21/18 20:00 89 04/21/18 20:00 97.9 74 20 143/79 (100) 96 04/21/18 19:05 98.6 04/21/18 16:00 98.6 64 18 148/73 (98) 96 04/21/18 16:00 99 04/21/18 12:00 82 04/21/18 11:58 98.6 78 19 135/74 (94) 95 Intake and Output 04/21/18 04/22/18 19:00 07:00 Intake Total 240 ml 110 ml Output Total 600 ml Balance 240 ml -490 ml Intake Oral 240 ml IV Total 110 ml Output Urine Total 600 ml # Voids 2 3 General Appearance: WD/WN HEENT: normocephalic, atraumatic Respiratory/Chest: chest wall non-tender, lungs clear Cardiovascular: normal peripheral pulses, normal rate Abdomen: normal bowel sounds, soft, non tender Genitourinary: normal external genitalia Extremities: no cyanosis Skin: no ulcers 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 Laboratory Tests 04/22/18 06:05: White Blood Count 15.7H, Red Blood Count 4.02L, Hemoglobin 11.7L, Hematocrit 33.3L, Mean Corpuscular Volume 83, Mean Corpuscular Hemoglobin 29.0, Mean Corpuscular Hemoglobin Concent 35.1, Red Cell Distribution Width 15.1H, Platelet Count 333, Mean Platelet Volume 6.6, Neutrophils (%) (Auto) 50.3, Lymphocytes (%) (Auto) 39.0, Monocytes (%) (Auto) 7.9, Eosinophils (%) (Auto) 1.5, Basophils (%) (Auto) 1.2, Sodium Level 141, Potassium Level 3.9, Chloride Level 105, Carbon Dioxide Level 27, Anion Gap 9, Blood Urea Nitrogen 9, Creatinine 0.8, Estimat Glomerular Filtration Rate , Glucose Level 101, Calcium Level 9.9 Current Medications Medications (Trade) Dose Ordered Sig/Meseret Route PRN Reason Start Time Stop Time Status Last Admin Dose Admin Amlodipine Besylate (Norvasc) 10 mg DAILY ORAL 04/19/18 09:00 05/17/18 08:59 04/22/18 08:33 Aspirin (Ecotrin) 81 mg DAILY ORAL 04/19/18 09:00 05/17/18 08:59 04/22/18 08:33 Azithromycin 500 mg/Dextrose 275 ml @ 275 mls/hr Q24HRS IV 04/19/18 14:00 04/23/18 14:59 04/21/18 14:29 Cefepime HCl 2 gm/ Dextrose 110 ml @ 220 mls/hr EVERY 12 HOURS IV 04/19/18 09:00 04/23/18 20:59 04/22/18 08:36 Dextrose (Dextrose 50%) 25 ml Q30M PRN IV Hypoglycemia 04/18/18 22:00 05/18/18 21:59 Dextrose (Dextrose 50%) 50 ml Q30M PRN IV Hypoglycemia 04/18/18 22:00 05/18/18 21:59 Gabapentin (Neurontin) 800 mg QID ORAL 04/19/18 09:00 05/16/18 17:59 04/22/18 08:33 Heparin Sodium (Porcine) (Heparin 5000 units/ml) 5,000 units EVERY 12 HOURS SUBQ 04/19/18 09:00 05/16/18 20:59 04/22/18 08:35 Loperamide HCl (Imodium) 2 mg QIDPRN PRN ORAL Diarrhea 04/19/18 19:30 05/18/18 19:29 Morphine Sulfate (Morphine Sulfate) 2 mg Q4H PRN IVP Moderate Pain (Pain Scale 4-6) 04/18/18 22:15 04/23/18 14:14 04/21/18 18:35 Ondansetron HCl (Zofran) 4 mg Q6H PRN IVP Nausea & Vomiting 04/19/18 02:15 05/16/18 14:14 Phenazopyridine HCl (Pyridium) 100 mg DAILYPRN PRN ORAL dysuria 04/19/18 14:15 05/16/18 14:14 Polyethylene Glycol (Miralax) 17 gm DAILYPRN PRN ORAL Constipation 04/19/18 14:15 05/16/18 14:14 Temazepam (Restoril) 15 mg HSPRN PRN ORAL Insomnia 04/19/18 14:15 04/23/18 14:14 Eamon Fuller MD Apr 22, 2018 09:16
[2018-04-22 12:00] VITALS: BP 126/73
--- NOTE | 2018-04-22 12:58 | General Progress Note ---
Assessment/Plan Problem List: (1) Hip pain ICD Codes: M25.559 - Pain in unspecified hip SNOMED: 65524985 (2) Sepsis ICD Codes: A41.9 - Sepsis, unspecified organism SNOMED: 75820866 (3) Sickle cell disease ICD Codes: D57.1 - Sickle cell disease SNOMED: 077778732 (4) Anemia ICD Codes: D64.9 - Anemia SNOMED: 328713183 (5) Pneumonia ICD Codes: J18.9 - Pneumonia, unspecified organism SNOMED: 374559335 Status: stable, progressing Assessment/Plan ot pt diet abx o2 pulm tx pain control cbc bmp am heme eval, dc plan w hh Subjective Constitutional: Reports: weakness Allergies: Coded Allergies: ACETAMINOPHEN (Verified Allergy, Unknown, 10/27/15) HYDROCODONE (Verified Allergy, Unknown, 10/27/15) All Systems: reviewed and negative except above Subjective sleepy calm in bed Objective Last 24 Hour Vital Signs Date Time Temp Pulse Resp B/P (MAP) Pulse Ox O2 Delivery O2 Flow Rate FiO2 04/22/18 12:00 98.4 90 20 126/73 (90) 97 04/22/18 09:00 Room Air 04/22/18 08:33 88 134/82 04/22/18 08:00 83 04/22/18 08:00 99.5 88 20 134/82 (99) 94 04/22/18 04:00 110 04/22/18 04:00 97.0 74 20 134/72 (92) 95 04/22/18 00:00 75 04/22/18 00:00 98.0 74 20 132/74 (93) 96 04/21/18 21:00 Room Air 04/21/18 20:00 89 04/21/18 20:00 97.9 74 20 143/79 (100) 96 04/21/18 19:05 98.6 04/21/18 16:00 98.6 64 18 148/73 (98) 96 04/21/18 16:00 99 Intake and Output 04/21/18 04/22/18 19:00 07:00 Intake Total 240 ml 110 ml Output Total 600 ml Balance 240 ml -490 ml Intake Oral 240 ml IV Total 110 ml Output Urine Total 600 ml # Voids 2 3 Laboratory Tests 04/22/18 06:05: White Blood Count 15.7H, Red Blood Count 4.02L, Hemoglobin 11.7L, Hematocrit 33.3L, Mean Corpuscular Volume 83, Mean Corpuscular Hemoglobin 29.0, Mean Corpuscular Hemoglobin Concent 35.1, Red Cell Distribution Width 15.1H, Platelet Count 333, Mean Platelet Volume 6.6, Neutrophils (%) (Auto) 50.3, Lymphocytes (%) (Auto) 39.0, Monocytes (%) (Auto) 7.9, Eosinophils (%) (Auto) 1.5, Basophils (%) (Auto) 1.2, Sodium Level 141, Potassium Level 3.9, Chloride Level 105, Carbon Dioxide Level 27, Anion Gap 9, Blood Urea Nitrogen 9, Creatinine 0.8, Estimat Glomerular Filtration Rate , Glucose Level 101, Calcium Level 9.9 Height (Feet): 6 Height (Inches): 0.50 Weight (Pounds): 222 General Appearance: alert EENT: normal ENT inspection Neck: normal alignment Cardiovascular: normal peripheral pulses, normal rate, regular rhythm Respiratory/Chest: chest wall non-tender, lungs clear, normal breath sounds Abdomen: normal bowel sounds, non tender, soft Extremities: normal inspection Edema: no edema noted Arm (L), no edema noted Arm (R), no edema noted Leg (L), no edema noted Leg (R), no edema noted Pedal (L), no edema noted Pedal (R), no edema noted Generalized Neurologic: responsive, motor weakness Skin: normal pigmentation, warm/dry Alen Goldman DO Apr 22, 2018 12:58
[2018-04-22] MEDS: Azithromycin 500 MG in D5W 275 ML IV SCH (13:17)
--- NOTE | 2018-04-22 13:26 | Infectious Diseases Prog Note ---
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 PLAN: Monitor pt off of AB Rx DC cefepime and Zithromax day # 7/ 7 Monitor CBC Monitor BMP Monitor cultures Monitor chest x-ray Flow cyto Subjective Allergies: Coded Allergies: ACETAMINOPHEN (Verified Allergy, Unknown, 10/27/15) HYDROCODONE (Verified Allergy, Unknown, 10/27/15) Subjective Persistent leukocytosis possible CML as per Path Objective Vital Signs Last 24 Hour Vital Signs Date Time Temp Pulse Resp B/P (MAP) Pulse Ox O2 Delivery O2 Flow Rate FiO2 04/22/18 12:00 86 04/22/18 12:00 98.4 90 20 126/73 (90) 97 04/22/18 09:00 Room Air 04/22/18 08:33 88 134/82 04/22/18 08:00 83 04/22/18 08:00 83 04/22/18 08:00 99.5 88 20 134/82 (99) 94 04/22/18 04:00 110 04/22/18 04:00 97.0 74 20 134/72 (92) 95 04/22/18 00:00 75 04/22/18 00:00 98.0 74 20 132/74 (93) 96 04/21/18 21:00 Room Air 04/21/18 20:00 89 04/21/18 20:00 97.9 74 20 143/79 (100) 96 04/21/18 19:05 98.6 04/21/18 16:00 98.6 64 18 148/73 (98) 96 04/21/18 16:00 99 Height (Feet): 6 Height (Inches): 0.50 Weight (Pounds): 222 HEENT: anicteric Respiratory/Chest: no respiratory distress Cardiovascular: regular rhythm Abdomen: soft, non tender Laboratory Tests Test 04/22/18 06:05 White Blood Count 15.7 K/UL (4.8-10.8) H Red Blood Count 4.02 M/UL (4.70-6.10) L Hemoglobin 11.7 G/DL (14.2-18.0) L Hematocrit 33.3 % (42.0-52.0) L Mean Corpuscular Volume 83 FL (80-99) Mean Corpuscular Hemoglobin 29.0 PG (27.0-31.0) Mean Corpuscular Hemoglobin Concent 35.1 G/DL (32.0-36.0) Red Cell Distribution Width 15.1 % (11.6-14.8) H Platelet Count 333 K/UL (150-450) Mean Platelet Volume 6.6 FL (6.5-10.1) Neutrophils (%) (Auto) 50.3 % (45.0-75.0) Lymphocytes (%) (Auto) 39.0 % (20.0-45.0) Monocytes (%) (Auto) 7.9 % (1.0-10.0) Eosinophils (%) (Auto) 1.5 % (0.0-3.0) Basophils (%) (Auto) 1.2 % (0.0-2.0) Sodium Level 141 MMOL/L (136-145) Potassium Level 3.9 MMOL/L (3.5-5.1) Chloride Level 105 MMOL/L (98-107) Carbon Dioxide Level 27 MMOL/L (21-32) Anion Gap 9 mmol/L (5-15) Blood Urea Nitrogen 9 mg/dL (7-18) Creatinine 0.8 MG/DL (0.55-1.30) Estimat Glomerular Filtration Rate mL/min (>60) Glucose Level 101 MG/DL (74-106) Calcium Level 9.9 MG/DL (8.5-10.1) Current Medications Medications (Trade) Dose Ordered Sig/Meseret Route PRN Reason Start Time Stop Time Status Last Admin Dose Admin Amlodipine Besylate (Norvasc) 10 mg DAILY ORAL 04/19/18 09:00 05/17/18 08:59 04/22/18 08:33 Aspirin (Ecotrin) 81 mg DAILY ORAL 04/19/18 09:00 05/17/18 08:59 04/22/18 08:33 Azithromycin 500 mg/Dextrose 275 ml @ 275 mls/hr Q24HRS IV 04/19/18 14:00 04/23/18 14:59 04/22/18 13:17 Cefepime HCl 2 gm/ Dextrose 110 ml @ 220 mls/hr EVERY 12 HOURS IV 04/19/18 09:00 04/23/18 20:59 04/22/18 08:36 Dextrose (Dextrose 50%) 25 ml Q30M PRN IV Hypoglycemia 04/18/18 22:00 05/18/18 21:59 Dextrose (Dextrose 50%) 50 ml Q30M PRN IV Hypoglycemia 04/18/18 22:00 05/18/18 21:59 Gabapentin (Neurontin) 800 mg QID ORAL 04/19/18 09:00 05/16/18 17:59 04/22/18 13:17 Heparin Sodium (Porcine) (Heparin 5000 units/ml) 5,000 units EVERY 12 HOURS SUBQ 04/19/18 09:00 05/16/18 20:59 04/22/18 08:35 Loperamide HCl (Imodium) 2 mg QIDPRN PRN ORAL Diarrhea 04/19/18 19:30 05/18/18 19:29 Morphine Sulfate (Morphine Sulfate) 2 mg Q4H PRN IVP Moderate Pain (Pain Scale 4-6) 04/18/18 22:15 04/23/18 14:14 04/21/18 18:35 Ondansetron HCl (Zofran) 4 mg Q6H PRN IVP Nausea & Vomiting 04/19/18 02:15 05/16/18 14:14 Phenazopyridine HCl (Pyridium) 100 mg DAILYPRN PRN ORAL dysuria 04/19/18 14:15 05/16/18 14:14 Polyethylene Glycol (Miralax) 17 gm DAILYPRN PRN ORAL Constipation 04/19/18 14:15 05/16/18 14:14 Temazepam (Restoril) 15 mg HSPRN PRN ORAL Insomnia 04/19/18 14:15 04/23/18 14:14 Anjel Bob MD Apr 22, 2018 13:26
[2018-04-22] MEDS: Morphine Sulfate 2mg/ml Inj IVP PRN ×3 (13:49→22:32)
--- NOTE | 2018-04-22 15:36 | Consultation ---
Consult Note Consult Note HEMATOLOGY-ONCOLOGY CONSULTATION REFERRING PHYSICIAN: Alen Goldman DOS: 04/22/2018 REASON FOR CONSULT: Leukocytosis, r/o cll HPI: This is an 82-year-old male, who lives at home, presented with a chronic hip pain bilaterally getting worse with shortness of breath and wheezing, came to [facility], diagnosed with pneumonia, sepsis, hypoxia, and being admitted to telemetry for further care. Currently, O2 NC, calm, eating in the ER gurney. No complaint. Hematology services consulted for the evaluation of leukocytosis, r/o cll. REVIEW OF SYSTEMS: No chest pain. Slight short of breath. No nausea, vomiting , or diarrhea. PAST MEDICAL HISTORY: Includes hypertension, weakness, and sickle cell. PAST SURGICAL HISTORY: Cataract. MEDICATIONS: Include ceftriaxone, azithromycin, albuterol, and ketorolac. ALLERGIES: Tylenol and hydrocodone. SOCIAL HISTORY: No smoking. No alcohol. No intravenous drug abuse. FAMILY HISTORY: Noncontributory. PHYSICAL EXAMINATION: GENERAL: Calm in bed, oriented x2, in no acute distress. O2 NC in place, slight short of breath. VITAL SIGNS: Temperature 98 degrees, pulse 85, respirations 22, and blood pressure 130/74. CARDIOVASCULAR: No murmur. LUNGS: Poor air exchange. ABDOMEN: Bowel sounds positive. Nontender. Nondistended. EXTREMITIES: Show no cyanosis, clubbing, or edema. NEUROLOGIC: The patient moves all extremities. Slightly weak. LABORATORY AND DIAGNOSTIC DATA: White count 19, hemoglobin and hematocrit are 12 and 34, and platelets 314,000. Sodium 135 and glucose 123. Troponin 0.00. BNP is 181. ASSESSMENT AND RECOMMENDATIONS # Leukocytosis, r/o CLL. Most likely elevated wbc is related to pna. --> Imaging has been reviewed. Shows Left basilar infiltrate. Hypoventilatory exam with basilar atelectatic changes. Left lung interstitial disease and central bronchial wall thickening, nonspecific --> Blood and urine cx are pending --> has been started on abx, empiric tx. --> flow cytometry has been ordered to rule out CLL # Anemia, mild. Hgb >11, no w/u required at this time. --> Cont to monitor for stability # Sickle cell disease --> currently not in crisis # Chronic hip pain bilaterally.Cont pain control. # Pneumonia. --> IV abx # Sepsis. # Hypoxia. O2 and pulmonary treatment as needed. # Hypertension. # Weakness. GREATLY APPRECIATE CONSULTATION. Rodri William MD Apr 22, 2018 15:36
[2018-04-22 16:00] VITALS: BP 127/78
--- NOTE | 2018-04-22 16:43 | Cardiology Report ---
APPROVED REPORT EKG Measurement Heart [id number] Normal sinus rhythm Normal ECG
[2018-04-22 20:00] VITALS: BP 117/60
[2018-04-23] VITALS: BP 118/61
[2018-04-23 04:00] VITALS: BP 120/60
[2018-04-23] MEDS: Morphine Sulfate 2mg/ml Inj IVP PRN ×2 (05:44→11:06)
--- NOTE | 2018-04-23 07:37 | General Progress Note ---
Assessment/Plan Assessment/Plan # Leukocytosis, r/o CLL. Most likely elevated wbc is related to pna. He does have "SMUDGE CELLS" is common to blood smear with artifact in addition to CLL, so will need to rule that out --> Imaging has been reviewed. Shows Left basilar infiltrate. Hypoventilatory exam with basilar atelectatic changes. Left lung interstitial disease and central bronchial wall thickening, nonspecific --> Blood and urine cx are pending --> has been started on abx, empiric tx. --> flow cytometry has been ordered to rule out CLL --> appreciate consult, pulm eval # Anemia, mild. Hgb >11, no w/u required at this time. --> Cont to monitor for stability --> treat as required # Sickle cell disease --> currently not in crisis --> sickle cell screen + # Chronic hip pain bilaterally.Cont pain control. # Pneumonia. --> IV abx # Sepsis. # Hypoxia. O2 and pulmonary treatment as needed. # Hypertension. # Weakness. GREATLY APPRECIATE CONSULTATION. Subjective Allergies: Coded Allergies: ACETAMINOPHEN (Verified Allergy, Unknown, 10/27/15) HYDROCODONE (Verified Allergy, Unknown, 10/27/15) Subjective awake and alert, inquiring as to elevated wbc Objective Last 24 Hour Vital Signs Date Time Temp Pulse Resp B/P (MAP) Pulse Ox O2 Delivery O2 Flow Rate FiO2 04/23/18 04:58 79 04/23/18 04:00 97.8 80 20 120/60 (80) 96 04/23/18 03:34 79 04/23/18 00:00 97.7 80 20 118/61 (80) 95 04/22/18 23:21 74 04/22/18 21:00 Room Air 04/22/18 20:00 98.1 96 17 117/60 (79) 94 04/22/18 19:58 83 04/22/18 16:00 98.2 99 20 127/78 (94) 98 04/22/18 12:00 86 04/22/18 12:00 98.4 90 20 126/73 (90) 97 04/22/18 09:00 Room Air 04/22/18 08:33 88 134/82 04/22/18 08:00 83 04/22/18 08:00 83 04/22/18 08:00 99.5 88 20 134/82 (99) 94 Intake and Output 04/22/18 04/23/18 19:00 07:00 Intake Total 1215 ml 110 ml Balance 1215 ml 110 ml Intake Oral 720 ml IV Total 495 ml 110 ml # Voids 3 2 # Bowel Movements 4 Height (Feet): 6 Height (Inches): 0.50 Weight (Pounds): 220 Objective Gen: NAD Respiratory/Chest: chest wall non-tender, lungs clear Cardiovascular: normal peripheral pulses, normal rate Abdomen: normal bowel sounds, soft, non tender Genitourinary: normal external genitalia Extremities: no cyanosis Skin: no ulcers 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
[2018-04-23 08:00] VITALS: BP 128/70
[2018-04-23 08:44] LABS: BASOPHILS % (AUTO) 1.9 % (0.0-2.0); EOSINOPHILS % (AUTO) 2.1 % (0.0-3.0); HEMATOCRIT 32.7 % (42.0-52.0); HEMOGLOBIN 11.4 G/DL (14.2-18.0); LYMPHOCYTES % (AUTO) 19.9 % (20.0-45.0); MEAN CORPUSCULAR VOLUME 83 FL (80-99); MONOCYTES % (AUTO) 9.7 % (1.0-10.0); NEUTROPHILS % (AUTO) 66.5 % (45.0-75.0); PLATELET COUNT 375 K/UL (150-450); RED BLOOD COUNT 3.95 M/UL (4.70-6.10); RED CELL DISTRIBUTION WIDTH 15.2 % (11.6-14.8); WHITE BLOOD COUNT 13.4 K/UL (4.8-10.8)
[2018-04-23] MEDS: Heparin 5000 units/ml inj SUBQ SCH (08:58)
[2018-04-23] MEDS: Aspirin EC 81mg tab ORAL SCH (08:58)
[2018-04-23 09:00] LABS: ALANINE AMINOTRANSFERASE 30 U/L (12-78); ALBUMIN 3.3 G/DL (3.4-5.0); ALBUMIN/GLOBULIN RATIO 0.7 (1.0-2.7); ALKALINE PHOSPHATASE 86 U/L (46-116); ANION GAP 7 mmol/L (5-15); ASPARTATE AMINO TRANSFERASE 28 U/L (15-37); BILIRUBIN,TOTAL 1.7 MG/DL (0.2-1.0); BLOOD UREA NITROGEN 8 mg/dL (7-18); CARBON DIOXIDE 28 MMOL/L (21-32); CHLORIDE 105 MMOL/L (98-107); CREATININE 0.8 MG/DL (0.55-1.30); PHOSPHORUS 3.6 MG/DL (2.5-4.9); SODIUM 140 MMOL/L (136-145)
[2018-04-23 09:24] LABS: BILIRUBIN,DIRECT 0.3 MG/DL (0.0-0.3)
[2018-04-23 12:00] VITALS: BP 118/67
--- NOTE | 2018-04-23 12:50 | Pulmonology Progress Note ---
Assessment/Plan Problems: (1) Leukocytosis (2) Sepsis (3) Pneumonia (4) Anemia (5) Sickle cell disease Assessment/Plan check cultures, all negative so far old records checks, pt has chronic leukocytosis, will order blood smear d/w Pathologist, she will call me back with blood smear report flow cytometry was negative for CLL iv abx chest PT respiratory treatment CXR improving f/u electrolytes aspiration precaution dvt prophylaxis. Subjective ROS Limited/Unobtainable: No Constitutional: Reports: no symptoms HEENT: Repors: no symptoms Respiratory: Reports: no symptoms Allergies: Coded Allergies: ACETAMINOPHEN (Verified Allergy, Unknown, 10/27/15) HYDROCODONE (Verified Allergy, Unknown, 10/27/15) Objective Last 24 Hour Vital Signs Date Time Temp Pulse Resp B/P (MAP) Pulse Ox O2 Delivery O2 Flow Rate FiO2 04/23/18 12:00 76 04/23/18 12:00 98.4 73 18 118/67 (84) 96 04/23/18 08:59 87 128/70 04/23/18 08:00 98.0 87 18 128/70 (89) 96 04/23/18 08:00 80 04/23/18 04:58 79 04/23/18 04:00 97.8 80 20 120/60 (80) 96 04/23/18 03:34 79 04/23/18 00:00 97.7 80 20 118/61 (80) 95 04/22/18 23:21 74 04/22/18 21:00 Room Air 04/22/18 20:00 98.1 96 17 117/60 (79) 94 04/22/18 19:58 83 04/22/18 16:00 98.2 99 20 127/78 (94) 98 Intake and Output 04/22/18 04/23/18 19:00 07:00 Intake Total 1215 ml 110 ml Balance 1215 ml 110 ml Intake Oral 720 ml IV Total 495 ml 110 ml # Voids 3 2 # Bowel Movements 4 General Appearance: WD/WN HEENT: normocephalic, anicteric Respiratory/Chest: chest wall non-tender, lungs clear Cardiovascular: normal peripheral pulses, normal rate Abdomen: normal bowel sounds, soft, non tender Genitourinary: normal external genitalia Neurologic/Psychiatric: first line supervisor II-XII grossly normal Laboratory Tests 04/23/18 07:05: White Blood Count 13.4H, Red Blood Count 3.95L, Hemoglobin 11.4L, Hematocrit 32.7L, Mean Corpuscular Volume 83, Mean Corpuscular Hemoglobin 28.8, Mean Corpuscular Hemoglobin Concent 34.7, Red Cell Distribution Width 15.2H, Platelet Count 375, Mean Platelet Volume 6.7, Neutrophils (%) (Auto) 66.5, Lymphocytes (%) (Auto) 19.9L, Monocytes (%) (Auto) 9.7, Eosinophils (%) (Auto) 2.1, Basophils (%) (Auto) 1.9, Sickle Cell Screen [Pending], Sodium Level 140, Potassium Level 4.0, Chloride Level 105, Carbon Dioxide Level 28, Anion Gap 7, Blood Urea Nitrogen 8, Creatinine 0.8, Estimat Glomerular Filtration Rate , Glucose Level 97, Calcium Level 10.0, Phosphorus Level 3.6, Magnesium Level 2.1 , Total Bilirubin 1.7H, Direct Bilirubin 0.3, Aspartate Amino Transf (AST/SGOT) 28, Alanine Aminotransferase (ALT/SGPT) 30, Alkaline Phosphatase 86, Total Protein 8.1, Albumin 3.3L, Globulin 4.8, Albumin/Globulin Ratio 0.7L Current Medications Medications (Trade) Dose Ordered Sig/[place] Route PRN Reason Start Time Stop Time Status Last Admin Dose Admin Amlodipine Besylate (Norvasc) 10 mg DAILY ORAL 04/19/18 09:00 05/17/18 08:59 04/23/18 08:59 Aspirin (Ecotrin) 81 mg DAILY ORAL 04/19/18 09:00 05/17/18 08:59 04/23/18 08:58 Dextrose (Dextrose 50%) 25 ml Q30M PRN IV Hypoglycemia 04/18/18 22:00 05/18/18 21:59 Dextrose (Dextrose 50%) 50 ml Q30M PRN IV Hypoglycemia 04/18/18 22:00 05/18/18 21:59 Gabapentin (Neurontin) 800 mg QID ORAL 04/19/18 09:00 05/16/18 17:59 04/23/18 08:59 Heparin Sodium (Porcine) (Heparin 5000 units/ml) 5,000 units EVERY 12 HOURS SUBQ 04/19/18 09:00 05/16/18 20:59 04/23/18 08:58 Loperamide HCl (Imodium) 2 mg QIDPRN PRN ORAL Diarrhea 04/19/18 19:30 05/18/18 19:29 Morphine Sulfate (Morphine Sulfate) 2 mg Q4H PRN IVP Moderate Pain (Pain Scale 4-6) 04/18/18 22:15 04/23/18 14:14 04/23/18 11:06 Ondansetron HCl (Zofran) 4 mg Q6H PRN IVP Nausea & Vomiting 04/19/18 02:15 05/16/18 14:14 Phenazopyridine HCl (Pyridium) 100 mg DAILYPRN PRN ORAL dysuria 04/19/18 14:15 05/16/18 14:14 Polyethylene Glycol (Miralax) 17 gm DAILYPRN PRN ORAL Constipation 04/19/18 14:15 05/16/18 14:14 Temazepam (Restoril) 15 mg HSPRN PRN ORAL Insomnia 04/19/18 14:15 04/23/18 14:14 Eamon Fuller MD Apr 23, 2018 12:50
--- NOTE | 2018-04-23 13:39 | General Progress Note ---
Assessment/Plan Problem List: (1) Hip pain ICD Codes: M25.559 - Pain in unspecified hip SNOMED: 76101401 (2) Sepsis ICD Codes: A41.9 - Sepsis, unspecified organism SNOMED: 50064691 (3) Sickle cell disease ICD Codes: D57.1 - Sickle cell disease SNOMED: 476328604 (4) Anemia ICD Codes: D64.9 - Anemia SNOMED: 659190315 (5) Pneumonia ICD Codes: J18.9 - Pneumonia, unspecified organism SNOMED: 087198153 Status: stable, progressing Assessment/Plan ot pt diet abx o2 pulm tx pain control cbc bmp am dc if clear Subjective Constitutional: Reports: weakness Allergies: Coded Allergies: ACETAMINOPHEN (Verified Allergy, Unknown, 10/27/15) HYDROCODONE (Verified Allergy, Unknown, 10/27/15) All Systems: reviewed and negative except above Subjective sleepy calm in bed Objective Last 24 Hour Vital Signs Date Time Temp Pulse Resp B/P (MAP) Pulse Ox O2 Delivery O2 Flow Rate FiO2 04/23/18 12:00 76 04/23/18 12:00 98.4 73 18 118/67 (84) 96 04/23/18 08:59 87 128/70 04/23/18 08:00 98.0 87 18 128/70 (89) 96 04/23/18 08:00 80 04/23/18 04:58 79 04/23/18 04:00 97.8 80 20 120/60 (80) 96 04/23/18 03:34 79 04/23/18 00:00 97.7 80 20 118/61 (80) 95 04/22/18 23:21 74 04/22/18 21:00 Room Air 04/22/18 20:00 98.1 96 17 117/60 (79) 94 04/22/18 19:58 83 04/22/18 16:00 98.2 99 20 127/78 (94) 98 Intake and Output 04/22/18 04/23/18 19:00 07:00 Intake Total 1215 ml 110 ml Balance 1215 ml 110 ml Intake Oral 720 ml IV Total 495 ml 110 ml # Voids 3 2 # Bowel Movements 4 Laboratory Tests 04/23/18 07:05: White Blood Count 13.4H, Red Blood Count 3.95L, Hemoglobin 11.4L, Hematocrit 32.7L, Mean Corpuscular Volume 83, Mean Corpuscular Hemoglobin 28.8, Mean Corpuscular Hemoglobin Concent 34.7, Red Cell Distribution Width 15.2H, Platelet Count 375, Mean Platelet Volume 6.7, Neutrophils (%) (Auto) 66.5, Lymphocytes (%) (Auto) 19.9L, Monocytes (%) (Auto) 9.7, Eosinophils (%) (Auto) 2.1, Basophils (%) (Auto) 1.9, Sickle Cell Screen [Pending], Sodium Level 140, Potassium Level 4.0, Chloride Level 105, Carbon Dioxide Level 28, Anion Gap 7, Blood Urea Nitrogen 8, Creatinine 0.8, Estimat Glomerular Filtration Rate , Glucose Level 97, Calcium Level 10.0, Phosphorus Level 3.6, Magnesium Level 2.1 , Total Bilirubin 1.7H, Direct Bilirubin 0.3, Aspartate Amino Transf (AST/SGOT) 28, Alanine Aminotransferase (ALT/SGPT) 30, Alkaline Phosphatase 86, Total Protein 8.1, Albumin 3.3L, Globulin 4.8, Albumin/Globulin Ratio 0.7L Height (Feet): 6 Height (Inches): 0.50 Weight (Pounds): 220 General Appearance: alert EENT: normal ENT inspection Neck: normal alignment Cardiovascular: normal peripheral pulses, normal rate, regular rhythm Respiratory/Chest: chest wall non-tender, lungs clear, normal breath sounds Abdomen: normal bowel sounds, non tender, soft Extremities: normal inspection Edema: no edema noted Arm (L), no edema noted Arm (R), no edema noted Leg (L), no edema noted Leg (R), no edema noted Pedal (L), no edema noted Pedal (R), no edema noted Generalized Neurologic: responsive, motor weakness Skin: normal pigmentation, warm/dry Alen Goldman DO Apr 23, 2018 13:39
--- NOTE | 2018-04-23 15:29 | Infectious Diseases Prog Note ---
Assessment/Plan Assessment/Plan ASSESSMENT: The patient is an 82-year-old male with, Leukocytosis improving ( flow cytometry was negative for CLL Left lower lobe pneumonia (community-acquired), SP Rx Chest x-ray showed left basilar infiltrate Bl vascular necrosis hips cell anemia Sciatica pain History of hyperlipidemia History of sickle cell disease Hiatal hernia. PLAN: Monitor pt off of AB Rx ( ok to DC from ID standpoint ) 04/22 Sp cefepime and Zithromax day # 12/21 Monitor CBC Monitor BMP Monitor chest x-ray Hem following Subjective Allergies: Coded Allergies: ACETAMINOPHEN (Verified Allergy, Unknown, 10/27/15) HYDROCODONE (Verified Allergy, Unknown, 10/27/15) Subjective Leukocytosis improving Objective Vital Signs Last 24 Hour Vital Signs Date Time Temp Pulse Resp B/P (MAP) Pulse Ox O2 Delivery O2 Flow Rate FiO2 04/23/18 12:00 76 04/23/18 12:00 98.4 73 18 118/67 (84) 96 04/23/18 08:59 87 128/70 04/23/18 08:00 98.0 87 18 128/70 (89) 96 04/23/18 08:00 80 04/23/18 04:58 79 04/23/18 04:00 97.8 80 20 120/60 (80) 96 04/23/18 03:34 79 04/23/18 00:00 97.7 80 20 118/61 (80) 95 04/22/18 23:21 74 04/22/18 21:00 Room Air 04/22/18 20:00 98.1 96 17 117/60 (79) 94 04/22/18 19:58 83 04/22/18 16:00 98.2 99 20 127/78 (94) 98 Height (Feet): 6 Height (Inches): 0.50 Weight (Pounds): 220 HEENT: anicteric Respiratory/Chest: no respiratory distress Cardiovascular: regularly irregular Abdomen: non distended Laboratory Tests Test 04/23/18 07:05 White Blood Count 13.4 K/UL (4.8-10.8) H Red Blood Count 3.95 M/UL (4.70-6.10) L Hemoglobin 11.4 G/DL (14.2-18.0) L Hematocrit 32.7 % (42.0-52.0) L Mean Corpuscular Volume 83 FL (80-99) Mean Corpuscular Hemoglobin 28.8 PG (27.0-31.0) Mean Corpuscular Hemoglobin Concent 34.7 G/DL (32.0-36.0) Red Cell Distribution Width 15.2 % (11.6-14.8) H Platelet Count 375 K/UL (150-450) Mean Platelet Volume 6.7 FL (6.5-10.1) Neutrophils (%) (Auto) 66.5 % (45.0-75.0) Lymphocytes (%) (Auto) 19.9 % (20.0-45.0) L Monocytes (%) (Auto) 9.7 % (1.0-10.0) Eosinophils (%) (Auto) 2.1 % (0.0-3.0) Basophils (%) (Auto) 1.9 % (0.0-2.0) Sickle Cell Screen Pending Sodium Level 140 MMOL/L (136-145) Potassium Level 4.0 MMOL/L (3.5-5.1) Chloride Level 105 MMOL/L (98-107) Carbon Dioxide Level 28 MMOL/L (21-32) Anion Gap 7 mmol/L (5-15) Blood Urea Nitrogen 8 mg/dL (7-18) Creatinine 0.8 MG/DL (0.55-1.30) Estimat Glomerular Filtration Rate mL/min (>60) Glucose Level 97 MG/DL (74-106) Calcium Level 10.0 MG/DL (8.5-10.1) Phosphorus Level 3.6 MG/DL (2.5-4.9) Magnesium Level 2.1 MG/DL (1.8-2.4) Total Bilirubin 1.7 MG/DL (0.2-1.0) H Direct Bilirubin 0.3 MG/DL (0.0-0.3) Aspartate Amino Transf (AST/SGOT) 28 U/L (15-37) Alanine Aminotransferase (ALT/SGPT) 30 U/L (12-78) Alkaline Phosphatase 86 U/L (46-116) Total Protein 8.1 G/DL (6.4-8.2) Albumin 3.3 G/DL (3.4-5.0) L Globulin 4.8 g/dL Albumin/Globulin Ratio 0.7 (1.0-2.7) L Current Medications Medications (Trade) Dose Ordered Sig/[place]ese[place] Route PRN Reason Start Time Stop Time Status Last Admin Dose Admin Amlodipine Besylate (Norvasc) 10 mg DAILY ORAL 04/19/18 09:00 05/17/18 08:59 04/23/18 08:59 Aspirin (Ecotrin) 81 mg DAILY ORAL 04/19/18 09:00 05/17/18 08:59 04/23/18 08:58 Dextrose (Dextrose 50%) 25 ml Q30M PRN IV Hypoglycemia 04/18/18 22:00 05/18/18 21:59 Dextrose (Dextrose 50%) 50 ml Q30M PRN IV Hypoglycemia 04/18/18 22:00 05/18/18 21:59 Gabapentin (Neurontin) 800 mg QID ORAL 04/19/18 09:00 05/16/18 17:59 04/23/18 13:11 Heparin Sodium (Porcine) (Heparin 5000 units/ml) 5,000 units EVERY 12 HOURS SUBQ 04/19/18 09:00 05/16/18 20:59 04/23/18 08:58 Loperamide HCl (Imodium) 2 mg QIDPRN PRN ORAL Diarrhea 04/19/18 19:30 05/18/18 19:29 Ondansetron HCl (Zofran) 4 mg Q6H PRN IVP Nausea & Vomiting 04/19/18 02:15 05/16/18 14:14 Phenazopyridine HCl (Pyridium) 100 mg DAILYPRN PRN ORAL dysuria 04/19/18 14:15 05/16/18 14:14 Polyethylene Glycol (Miralax) 17 gm DAILYPRN PRN ORAL Constipation 04/19/18 14:15 05/16/18 14:14 Anjel Bob MD Apr 23, 2018 15:29
[2018-04-23 16:00] VITALS: BP 129/69
--- NOTE | 2018-04-23 16:14 | Diagnostic Imaging Report ---
Indication:Abdominal pain Technique: Grayscale and duplex Doppler imaging of the abdomen performed. Comparison: None Findings: The liver is unremarkable. The gallbladder is noted. The demonstrated part of the pancreas, aorta and IVC show no abnormalities. There is a slightly heterogeneous possibly calcified cyst in the left kidney measuring about 2 cm. The spleen is normal in size. There is no biliary ductal dilatation identified. Doppler evaluation of the main portal vein shows patency. CBD is 5.4 mm. There is no ascites. No hydronephrosis seen. Impression: No acute findings. Left renal cyst, partially calcified.
--- NOTE | 2018-04-24 16:34 | Discharge Summary ---
Discharge Summary Discharge Summary _ DATE OF ADMISSION: 04/16/2018 DATE OF DISCHARGE: 04/23/2018 CONSULTANTS: Dr. Anjel Ag BRIEF HOSPITAL COURSE: Patient is an 82-year-old male, who lives at home, presented to ED complaining of bilateral hip pain that was getting worse, accompanied with shortness of breath and wheezing. Patient had a long-standing condition, for which he takes [place] and Neurontin. There was no trauma, pain was mildly worse. He was wheezing and was harder to breathe. He denied any fever, there was minimal nonproductive cough. He denied calf pain, no chest pain, no abdominal pain. He has medical history significant for hypercholesterolemia, hypertension, and sickle cell disease. On evaluation at ED, blood pressure was 136/70, pulse rate 110, O2 saturation was 93% on room air. ABG showed hypoxemia 60% on room air, 89% oxygen saturation. Blood work was notable for leukocytosis, WBC 19.8. Hemoglobin was 12, hematocrit 34. Chest x-ray done showed left basilar infiltrate. He was then admitted for pneumonia and evaluation of hip pain. ID was consulted. Patient was given cefepime and Zithromax. Vancomycin was discontinued. He was given O2 support. He was placed on nebulizer treatment. He was given chest physiotherapy and was placed on aspiration precautions. He complained of pain at the toes. Topper Press Operator Automatic was consulted. Toenails are within normal limits and was not ingrown. There were no signs of pedal wound. Orthopedic consultation was obtained. Pelvic and hip x-ray showed no acute injury. There was abnormal bone mineralization with patchy heterogenicity. He was recommended to get MRI of the hip to see evidence of a vascular necrosis of the femoral head, however this can be done as outpatient. Blood culture did not isolate any growth. Urine culture no growth. C. difficile was negative. Stool culture negative. Cultures were negative, however, patient still with leukocytosis. Blood smear was ordered. He received 7 days of antibiotics. He was then observed off antibiotics. Water Softener Servicer And Installer was consulted. Flow cytometry did not show any Immunophenotypic abnormalities. CLL was ruled out. Patient was eventually discharged home with home health. FINAL DIAGNOSES: Sepsis Left lower lobe pneumonia, community-acquired pneumonia Leukocytosis, CLL and ruled out Bilateral vascular necrosis of the hips Sickle cell anemia Sciatica pain, chronic hip pain bilaterally Hyperlipidemia Hiatal hernia Anemia Hypoxia Hypertension Weakness DISPOSITION: Patient was discharged home with home health. DISCHARGE INSTRUCTIONS: Follow up in a week. I have been assigned to dictate discharge summary on this account, and I was not involved in the patient's management. Marivel Ingram NP Apr 24, 2018 16:34
== END 2018-04-23 16:57 | disposition home health service (06) | DRG 871 ==
LOC: EMR 09:34 → 4E 12:26 → EDBEDREQ 13:00 → 2E 04-18 22:33
DX: A41.9 Sepsis, unspecified organism (principal); J18.9 Pneumonia, unspecified organism; M87.852 Other osteonecrosis, left femur; M87.851 Other osteonecrosis, right femur; D64.9 Anemia, unspecified; Z88.6 Allergy status to analgesic agent; D57.1 Sickle-cell disease without crisis; I10 Essential (primary) hypertension; R09.02 Hypoxemia; M54.32 Sciatica, left side; M54.31 Sciatica, right side; E78.5 Hyperlipidemia, unspecified; K44.9 Diaphragmatic hernia without obstruction or gangrene
CPT/HCPCS: 36415; 36600; 71045; 73521; 76700; 80048; 80053; 82248; 82803; 83625; 83735; 83880; 84100; 84484; 85007; 85025; 85060; 85660; 87040; 87045; 87086; 87324; 93005; 94640; 94664; 94760; 96365; 96368; 96375; 97803; 99285; J7620

== ENCOUNTER 2018-06-05 11:09 | Inpatient (IN) | payer MEDICARE, BC ==
[~2018-06-05] VITALS: Ht 185.4 cm; Wt 103.6 kg
[2018-06-05] VITALS (7 sets, daily range): BP systolic 131–155; BP diastolic 64–90
[~2018-06-05 11:09] MED LIST changes: +AMLODIPINE BESY10 MG ORAL; +LOVASTATIN40 MG ORAL; +NEXIUM40 MG ORAL; +NORCO 10-325 T1 EACH ORAL; +POTASSIUM CHLO20 ME2 ORAL; +TAMSULOSIN HCL0.4 MG ORAL
[2018-06-05 12:20] LABS: ANION GAP 6 mmol/L (5-15); BLOOD UREA NITROGEN 5 mg/dL (7-18); CALCIUM 9.2 MG/DL (8.5-10.1); CARBON DIOXIDE 28 MMOL/L (21-32); CHLORIDE 102 MMOL/L (98-107); CREATININE 0.9 MG/DL (0.55-1.30); POTASSIUM 3.9 MMOL/L (3.5-5.1); SODIUM 136 MMOL/L (136-145)
[2018-06-05 12:40] LABS: EOSINOPHILS % (AUTO) 0.9 % (0.0-3.0); HEMATOCRIT 33.2 % (42.0-52.0); HEMOGLOBIN 11.3 G/DL (14.2-18.0); LYMPHOCYTES % (AUTO) 28.9 % (20.0-45.0); MEAN CORPUSCULAR VOLUME 85 FL (80-99); MONOCYTES % (AUTO) 9.9 % (1.0-10.0); NEUTROPHILS % (AUTO) 58.2 % (45.0-75.0); PLATELET COUNT 389 K/UL (150-450); RED BLOOD COUNT 3.92 M/UL (4.70-6.10); RED CELL DISTRIBUTION WIDTH 13.5 % (11.6-14.8); WHITE BLOOD COUNT 10.4 K/UL (4.8-10.8)
[2018-06-05 12:43] LABS: ALANINE AMINOTRANSFERASE 24 U/L (12-78); ALBUMIN 3.6 G/DL (3.4-5.0); ALKALINE PHOSPHATASE 91 U/L (46-116); ASPARTATE AMINO TRANSFERASE 28 U/L (15-37); BILIRUBIN,DIRECT 0.3 MG/DL (0.0-0.3); BILIRUBIN,TOTAL 1.4 MG/DL (0.2-1.0); CKMB 1.3 NG/ML (0.0-3.6); CREATINE KINASE 131 U/L (26-308)
--- NOTE | 2018-06-05 14:30 | Emergency Room Report ---
History of Present Illness General Chief Complaint: Dyspnea/Respdistress Source: Patient, Family Member Present Illness HPI This patient is accompanied by his family. There is concern that he has had shortness of breath. The patient himself states he was forced to be here. He states he feels fine. However, the patient has a family members are respiratory therapist and came to see him and was concerned about how his lungs sounded. He was diagnosed with pneumonia last month. Allergies: Coded Allergies: ACETAMINOPHEN (Verified Allergy, Unknown, 10/27/15) HYDROCODONE (Verified Allergy, Unknown, 10/27/15) Patient History Past Medical History: see triage record, HTN, asthma, other - SCD Social History: Denies: smoking, alcohol use, drug use Reviewed Nursing Documentation: PMH: Agreed; PSxH: Agreed Nursing Documentation-PMH Past Medical History: No History, Except For Hx Cardiac Problems: No - HYPERCHOLESTEROLEMIA Hx Hypertension: Yes Hx Pacemaker: No - SICKLE CELL Hx Asthma: Yes Hx COPD: No - PNA Hx Cancer: No Hx Gastrointestinal Problems: Yes Hx Neurological Problems: No - RIGHT HIP SCIATICAL PAIN Hx Weakness: Yes - RIGHT LOWER EXT Review of Systems All Other Systems: negative except mentioned in HPI Physical Exam Vital Signs Date Time Temp Pulse Resp B/P (MAP) Pulse Ox O2 Delivery O2 Flow Rate FiO2 06/05/18 11:16 98.4 87 20 138/75 92 Room Air Sp02 EP Interpretation: reviewed, normal General Appearance: no apparent distress, alert, GCS 15, non-toxic Head: normocephalic, atraumatic Eyes: bilateral eye normal inspection, bilateral eye PERRL ENT: hearing grossly normal, normal pharynx, no angioedema, normal voice Neck: full range of motion, supple/symm/no masses Respiratory: chest non-tender, lungs clear, normal breath sounds, no respiratory distress, no retraction, no accessory muscle use, speaking full sentences Cardiovascular #1: regular rate, rhythm, no edema Gastrointestinal: normal bowel sounds, non tender, soft, non-distended, no guarding, no rebound Rectal: deferred Musculoskeletal: back normal, gait/station normal, normal range of motion, non- tender Neurologic: alert, oriented x3, responsive, motor strength/tone normal, sensory intact, speech normal Psychiatric: judgement/insight normal, memory normal, mood/affect normal, no suicidal/homicidal ideation Skin: normal color, no rash, warm/dry, well hydrated Medical Decision Making Diagnostic Impression: Primary Impression: Pneumonia Additional Impression: CHF (congestive heart failure) ER Course This patient's chest x-ray as patchy opacities and cardiomegaly which makes me concerned that he has undiagnosed congestive heart failure. Another consideration is persistent pneumonia. The patient has a left lower lobe opacity that is persistent on this chest x-ray. Another consideration is an undiagnosed pulmonary mass. The patient is pending a CT of the chest this time. The inpatient physician will follow-up on these results. The patient was given broad-spectrum antibiotics and admitted for further evaluation by cardiology and pulmonology for further delineation of the findings on the patient's chest x-ray. Laboratory Tests Test 06/05/18 12:00 White Blood Count 10.4 K/UL (4.8-10.8) Red Blood Count 3.92 M/UL (4.70-6.10) L Hemoglobin 11.3 G/DL (14.2-18.0) L Hematocrit 33.2 % (42.0-52.0) L Mean Corpuscular Volume 85 FL (80-99) Mean Corpuscular Hemoglobin 28.8 PG (27.0-31.0) Mean Corpuscular Hemoglobin Concent 34.0 G/DL (32.0-36.0) Red Cell Distribution Width 13.5 % (11.6-14.8) Platelet Count 389 K/UL (150-450) Mean Platelet Volume 7.1 FL (6.5-10.1) Neutrophils (%) (Auto) 58.2 % (45.0-75.0) Lymphocytes (%) (Auto) 28.9 % (20.0-45.0) Monocytes (%) (Auto) 9.9 % (1.0-10.0) Eosinophils (%) (Auto) 0.9 % (0.0-3.0) Basophils (%) (Auto) 2.0 % (0.0-2.0) Prothrombin Time 10.5 SEC (9.30-11.50) Prothrombin Time INR 1.0 (0.9-1.1) PTT 27 SEC (23-33) Sodium Level 136 MMOL/L (136-145) Potassium Level 3.9 MMOL/L (3.5-5.1) Chloride Level 102 MMOL/L (98-107) Carbon Dioxide Level 28 MMOL/L (21-32) Anion Gap 6 mmol/L (5-15) Blood Urea Nitrogen 5 mg/dL (7-18) L Creatinine 0.9 MG/DL (0.55-1.30) Estimate Glomerular Filtration Rate mL/min (>60) Glucose Level 117 MG/DL (74-106) H Calcium Level 9.2 MG/DL (8.5-10.1) Total Bilirubin 1.4 MG/DL (0.2-1.0) H Direct Bilirubin 0.3 MG/DL (0.0-0.3) Aspartate Amino Transferase (AST) 28 U/L (15-37) Alanine Aminotransferase (ALT) 24 U/L (12-78) Alkaline Phosphatase 91 U/L (46-116) Total Creatine Kinase 131 U/L (26-308) Creatine Kinase MB 1.3 NG/ML (0.0-3.6) Creatine Kinase MB Relative Index 0.9 Troponin I 0.000 ng/mL (0.000-0.056) Total Protein 7.2 G/DL (6.4-8.2) Albumin 3.6 G/DL (3.4-5.0) Globulin 3.6 g/dL Albumin/Globulin Ratio 1.0 (1.0-2.7) EKG Diagnostic Results Rate: normal Rhythm: NSR ST Segments: no acute changes Rhythm Strip Diag. Results EP Interpretation: yes Rate: 70's Rhythm: NSR, no PVC's, no ectopy Chest X-Ray Diagnostic Results Chest X-Ray Diagnostic Results : Chest X-Ray Ordered: Yes # of Views/Limited/Complete: 1 View Indication: Shortness of Breath EP Interpretation: Yes Interpretation: no effusion, no pneumothorax, other - Diffuse patchy opacities. LLL opacity. Impression: Other - See above. Electronically Signed by: Radha Butler, DO CT/MRI/US Diagnostic Results CT/MRI/US Diagnostic Results : Imaging Test Ordered: CT chest Impression Pending. See official report in electronic medical record. Last Vital Signs Date Time Temp Pulse Resp B/P (MAP) Pulse Ox O2 Delivery O2 Flow Rate FiO2 06/05/18 11:20 70 16 Room Air 06/05/18 11:20 98.1 131/64 97 Disposition: ADMITTED INPATIENT Condition: Serious Referrals: NON PHYSICIAN (PCP) Radha Butler DO Jun 05, 2018 14:30
[2018-06-05] MEDS ORDERED: cefTRIAXone 1 GM in NS 55 ML IVPB ONE (14:45)
[2018-06-05] MEDS ORDERED: Isovue-300 100ml vial INJ PRN (14:45)
--- NOTE | 2018-06-05 15:16 | Diagnostic Imaging Report ---
Indication: Chest pain Technique: XRAY Chest 1v Comparison: 04/21/2018 Findings: Low lung volumes. Heart size and mediastinal contours stable compared to the prior exam. There are atherosclerotic calcifications in the aorta. Prominent vascular markings. Likely left basilar atelectasis. No pleural effusion or pneumothorax. Impression: Prominent cardiac mediastinal silhouette, likely exaggerated due to low lung volumes but stable compared to exam of 04/21/2018. Prominence of the interstitium and pulmonary vascular markings possibly artifactual. Correlate clinically to exclude mild congestion/CHF. Streaky left basilar likely subsegmental atelectasis.
[2018-06-05] MEDS ORDERED: Azithromycin 250mg tab ORAL SCH (15:45)
--- NOTE | 2018-06-05 15:50 | Consultation ---
History of Present Illness General Date patient seen: Jun 05, 2018 Chief Complaint: Dyspnea/Respdistress Present Illness HPI 82 y/o M with hx of HTN, asthma, sickle cell disease, sciatica pain, HLD, PNA presents to ED on 06/05 with SOB OF note, patient had PNA last month afebrile no leukocytosis Allergies: Coded Allergies: ASPIRIN (Verified Allergy, Unknown, 06/05/18) CEFTRIAXONE (Verified Allergy, Unknown, 06/06/18) hives HYDROCODONE (Verified Allergy, Unknown, 10/27/15) Medication History Scheduled Amlodipine Besylate* (Amlodipine Besylate*), 10 MG ORAL DAILY, (Reported) Aspirin* (Aspir 81*), 81 MG ORAL DAILY, (Reported) Esomeprazole Magnesium (Nexium), 40 MG ORAL DAILY, (Reported) Gabapentin* (Neurontin*), 800 MG ORAL QID, (Reported) Lovastatin (Lovastatin), 40 MG ORAL BEDTIME, (Reported) Nystatin/Triamcin (Nystatin-Triamcinolone Ointm), 1 APPLIC TP BID Potassium Chloride (Potassium Chloride), 20 MEQ ORAL DAILY, (Reported) Prednisone* (Prednisone*), 40 MG ORAL DAILY Simvastatin (Zocor), 20 MG ORAL BEDTIME, (Reported) Tamsulosin Hcl (Tamsulosin Hcl*), 0.4 MG ORAL BEDTIME, (Reported) Scheduled PRN Hydrocodone Bit/Acetaminophen (Vicodin 5-300 Mg Tablet), 1 TAB ORAL Q4H PRN for For Pain, (Reported) Hydrocodone Bit/Acetaminophen 10-325* ([place] 10-325*), 1 TAB ORAL Q4H PRN for For Pain, (Reported) Patient History Healthcare decision maker Resuscitation status Advanced Directive on File Patient History Narrative Pmhx: as above Sxh: Denies: smoking, alcohol use, drug use Fhx: non contributory Physical Exam Physical Exam Narrative General Appearance: no apparent distress, alert, GCS 15 HEENT: normocephalic, atraumatic, bilateral eye PERRL normal pharynx, Neck: full range of motion, supple/symm/no masses Respiratory: chest non-tender, lungs clear, normal breath sounds, no respiratory distress, no retraction, no accessory muscle use, speaking full sentences Cardiovascular regular rate, rhythm, no edema Gastrointestinal: normal bowel sounds, non tender, soft, non-distended, no guarding, no rebound Musculoskeletal: back normal, gait/station normal, normal range of motion, non- tender Skin: normal color, no rash, warm/dry, well hydrated Last 24 Hour Vital Signs Date Time Temp Pulse Resp B/P (MAP) Pulse Ox O2 Delivery O2 Flow Rate FiO2 06/05/18 11:20 70 16 Room Air 18 11:20 98.1 70 16 131/64 97 Room Air 06/05/18 11:16 98.4 87 20 138/75 92 Room Air Laboratory Tests Test 06/05/18 12:00 White Blood Count 10.4 K/UL (4.8-10.8) Red Blood Count 3.92 M/UL (4.70-6.10) L Hemoglobin 11.3 G/DL (14.2-18.0) L Hematocrit 33.2 % (42.0-52.0) L Mean Corpuscular Volume 85 FL (80-99) Mean Corpuscular Hemoglobin 28.8 PG (27.0-31.0) Mean Corpuscular Hemoglobin Concent 34.0 G/DL (32.0-36.0) Red Cell Distribution Width 13.5 % (11.6-14.8) Platelet Count 389 K/UL (150-450) Mean Platelet Volume 7.1 FL (6.5-10.1) Neutrophils (%) (Auto) 58.2 % (45.0-75.0) Lymphocytes (%) (Auto) 28.9 % (20.0-45.0) Monocytes (%) (Auto) 9.9 % (1.0-10.0) Eosinophils (%) (Auto) 0.9 % (0.0-3.0) Basophils (%) (Auto) 2.0 % (0.0-2.0) Prothrombin Time 10.5 SEC (9.30-11.50) Prothromb Time International Ratio 1.0 (0.9-1.1) Activated Partial Thromboplast Time 27 SEC (23-33) Sodium Level 136 MMOL/L (136-145) Potassium Level 3.9 MMOL/L (3.5-5.1) Chloride Level 102 MMOL/L (98-107) Carbon Dioxide Level 28 MMOL/L (21-32) Anion Gap 6 mmol/L (5-15) Blood Urea Nitrogen 5 mg/dL (7-18) L Creatinine 0.9 MG/DL (0.55-1.30) Estimat Glomerular Filtration Rate mL/min (>60) Glucose Level 117 MG/DL (74-106) H Calcium Level 9.2 MG/DL (8.5-10.1) Total Bilirubin 1.4 MG/DL (0.2-1.0) H Direct Bilirubin 0.3 MG/DL (0.0-0.3) Aspartate Amino Transf (AST/SGOT) 28 U/L (15-37) Alanine Aminotransferase (ALT/SGPT) 24 U/L (12-78) Alkaline Phosphatase 91 U/L (46-116) Total Creatine Kinase 131 U/L (26-308) Creatine Kinase MB 1.3 NG/ML (0.0-3.6) Creatine Kinase MB Relative Index 0.9 Troponin I 0.000 ng/mL (0.000-0.056) Total Protein 7.2 G/DL (6.4-8.2) Albumin 3.6 G/DL (3.4-5.0) Globulin 3.6 g/dL Albumin/Globulin Ratio 1.0 (1.0-2.7) Height (Feet): 6 Height (Inches): 1.00 Weight (Pounds): 220 Medications Current Medications Medications (Trade) Dose Ordered Sig/Meseret Route PRN Reason Start Time Stop Time Status Last Admin Dose Admin Iopamidol (Isovue-300 100ml) 100 ml NOW PRN INJ Radiology Procedure 06/05/18 14:45 06/07/18 14:38 Assessment/Plan Assessment/Plan Abx: Ceftriaxone x1 06/05 Assessment: SOB- r/o PNA -CXR: Prominent cardiac mediastinal silhouette, likely exaggerated due to low lung volumes but stable compared to exam of 04/21/2018. Prominence of the interstitium and pulmonary vascular markings possibly artifactual. Correlate clinically to exclude mild congestion/CHF. Streaky left basilar likely subsegmental atelectasis. Afebrile No Leukocytosis REcent PNA 04/2017 (LLL) -s/p 7 days Cefepime and zithromax hx Bl vascular necrosis hips Sciatica pain hyperlipidemia History of sickle cell disease Hiatal hernia. HTN Asthma Cefriaxone reaction in the ED- hives Plan: -Continue empiric PO Levaquin for now for possible pNA pending CT chest -f/u cx -Monitor CBC/CMP, temperatures -aspiration precautions -f/u CT chest. Thank you for this consultation. Will continue to follow along with you. Discussed with TEODORA. Alivia Suggs M.D. Jun 05, 2018 15:50
[2018-06-05] MEDS ORDERED: DiphenhydrAMINE 50mg/ml Inj IVP ONE (16:00)
[2018-06-05] MEDS ORDERED: LORazepam Inj 2mg/ml 1ml IV PRN (16:15)
[2018-06-05] MEDS ORDERED: Zolpidem 5mg tab ORAL PRN (16:15)
[2018-06-05] MEDS ORDERED: Ipratropium 0.02% Inh Soln 2.5ml UD HHN PRN ×3 (16:15→17:45)
[2018-06-05] MEDS ORDERED: Ipratropium 0.02% Inh Soln 2.5ml UD ONE (16:24)
[2018-06-05] MEDS ORDERED: Albuterol ud Inhalation HHN PRN (16:31)
[2018-06-05] MEDS ORDERED: HYDROmorphone 1mg/ml Carpuject IVP PRN (17:07)
[2018-06-05] MEDS ORDERED: NS w/KCl 20mEq 1,000 ML IV SCH (17:10)
[2018-06-05] MEDS ORDERED: Enoxaparin 30mg Inj SUBQ SCH (17:15)
--- NOTE | 2018-06-05 19:10 | Cardiology Progress Note ---
Assessment/Plan Assessment/Plan The patient is seen and examined, full consult note will be dictated. Objective Last 24 Hour Vital Signs Date Time Temp Pulse Resp B/P (MAP) Pulse Ox O2 Delivery O2 Flow Rate FiO2 06/05/18 17:41 98.4 79 20 150/90 (110) 95 06/05/18 17:09 Room Air 06/05/18 16:55 105 06/05/18 16:45 98.6 70 16 144/73 100 Room Air 06/05/18 15:00 75 14 137/71 98 Room Air 06/05/18 14:00 70 19 155/72 97 Room Air 06/05/18 13:00 65 21 137/71 96 Room Air 06/05/18 11:20 70 16 Room Air 06/05/18 11:20 98.1 70 16 131/64 97 Room Air 06/05/18 11:16 98.4 87 20 138/75 92 Room Air Laboratory Tests Test 06/05/18 12:00 White Blood Count 10.4 K/UL (4.8-10.8) Red Blood Count 3.92 M/UL (4.70-6.10) L Hemoglobin 11.3 G/DL (14.2-18.0) L Hematocrit 33.2 % (42.0-52.0) L Mean Corpuscular Volume 85 FL (80-99) Mean Corpuscular Hemoglobin 28.8 PG (27.0-31.0) Mean Corpuscular Hemoglobin Concent 34.0 G/DL (32.0-36.0) Red Cell Distribution Width 13.5 % (11.6-14.8) Platelet Count 389 K/UL (150-450) Mean Platelet Volume 7.1 FL (6.5-10.1) Neutrophils (%) (Auto) 58.2 % (45.0-75.0) Lymphocytes (%) (Auto) 28.9 % (20.0-45.0) Monocytes (%) (Auto) 9.9 % (1.0-10.0) Eosinophils (%) (Auto) 0.9 % (0.0-3.0) Basophils (%) (Auto) 2.0 % (0.0-2.0) Prothrombin Time 10.5 SEC (9.30-11.50) Prothromb Time International Ratio 1.0 (0.9-1.1) Activated Partial Thromboplast Time 27 SEC (23-33) Sodium Level 136 MMOL/L (136-145) Potassium Level 3.9 MMOL/L (3.5-5.1) Chloride Level 102 MMOL/L (98-107) Carbon Dioxide Level 28 MMOL/L (21-32) Anion Gap 6 mmol/L (5-15) Blood Urea Nitrogen 5 mg/dL (7-18) L Creatinine 0.9 MG/DL (0.55-1.30) Estimat Glomerular Filtration Rate mL/min (>60) Glucose Level 117 MG/DL (74-106) H Calcium Level 9.2 MG/DL (8.5-10.1) Total Bilirubin 1.4 MG/DL (0.2-1.0) H Direct Bilirubin 0.3 MG/DL (0.0-0.3) Aspartate Amino Transf (AST/SGOT) 28 U/L (15-37) Alanine Aminotransferase (ALT/SGPT) 24 U/L (12-78) Alkaline Phosphatase 91 U/L (46-116) Total Creatine Kinase 131 U/L (26-308) Creatine Kinase MB 1.3 NG/ML (0.0-3.6) Creatine Kinase MB Relative Index 0.9 Troponin I 0.000 ng/mL (0.000-0.056) Total Protein 7.2 G/DL (6.4-8.2) Albumin 3.6 G/DL (3.4-5.0) Globulin 3.6 g/dL Albumin/Globulin Ratio 1.0 (1.0-2.7) Bernardo Strauss MD Jun 05, 2018 19:10
[2018-06-05] MEDS: NS w/KCl 20mEq 1,000 ML IV SCH (19:13)
[2018-06-05] MEDS: Tamsulosin 0.4mg cap ORAL SCH (20:25)
[2018-06-06] VITALS: BP 131/67
[2018-06-06 04:00] VITALS: BP 123/72
[2018-06-06 08:00] VITALS: BP 116/64
[2018-06-06] MEDS: NS w/KCl 20mEq 1,000 ML IV SCH ×2 (08:57→22:38)
[2018-06-06] MEDS: Enoxaparin 40mg Inj SUBQ SCH (09:06)
--- NOTE | 2018-06-06 11:25 | Diagnostic Imaging Report ---
Clinical Indication: Shortness of breath Technique: IV administration nonionic contrast. Spiral acquisition obtained through the chest. Multiplanar reconstructions generated. Total dose length product 1301.18 mGycm. CTDIvol(s) 27.68,29.21,26.15 mGy. Dose reduction achieved using automated exposure control Comparison: none Findings: Scarring is seen in the anterior superior left upper lobe. Minimal scarring is seen in the subpleural right lower lobe and in the left lower lobe near the costophrenic sulcus. The lungs and pleural spaces are otherwise clear. No infiltrates, effusions, masses, or nodules are demonstrated. The heart size is normal. No pericardial effusion. The esophagus is unremarkable. No mediastinal or hilar mass or adenopathy. No axillary or chest wall mass or adenopathy. The included portion of the thyroid is unremarkable. There is diffuse sclerosis of the bones Included upper abdominal anatomy demonstrates atrophic calcified spleen. A cyst is seen in the upper pole of the left kidney. There are gallstones Impression: No acute abnormality Minimal chronic scarring within the lungs bilaterally. Atrophic calcified, likely autoinfarcted, spleen and diffuse osseous sclerosis suggests history of sickle cell disease Incidental findings of left upper pole renal cyst, cholelithiasis This agrees with the preliminary interpretation provided overnight by [facility] teleradiology service. The CT scanner at [facility] is accredited by the [employer] and the scans are performed using protocols designed to limit radiation exposure to as low as reasonably achievable to attain images of sufficient resolution adequate for diagnostic evaluation.
[2018-06-06 12:00] VITALS: BP 119/71
--- NOTE | 2018-06-06 14:23 | Infectious Diseases Prog Note ---
Assessment/Plan Assessment/Plan Abx: Ceftriaxone x1 06/05 Assessment: SOB- -CT chest: No acute abnormality. Minimal chronic scarring within the lungs bilaterally. 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 Prominence of the interstitium and pulmonary vascular markings possibly artifactual. Correlate clinically to exclude mild congestion/CHF. Streaky left basilar likely subsegmental atelectasis. Afebrile No Leukocytosis REcent PNA 04/2017 (LLL) -s/p 7 days Cefepime and zithromax hx Bl vascular necrosis hips Sciatica pain hyperlipidemia History of sickle cell disease Hiatal hernia. HTN Asthma Cefriaxone reaction in the ED- hives Plan: -Continue empiric PO Levaquin #2/5 for bronchitis -f/u cx -Monitor CBC/CMP, temperatures -aspiration precautions -f/u CT chest. Thank you for this consultation. Will continue to follow along with you. Discussed with RN. Subjective Allergies: Coded Allergies: ASPIRIN (Verified Allergy, Unknown, 06/05/18) CEFTRIAXONE (Verified Allergy, Unknown, 06/06/18) hives HYDROCODONE (Verified Allergy, Unknown, 10/27/15) Objective Vital Signs Last 24 Hour Vital Signs Date Time Temp Pulse Resp B/P (MAP) Pulse Ox O2 Delivery O2 Flow Rate FiO2 06/06/18 12:00 67 06/06/18 12:00 98.1 83 20 119/71 (87) 95 06/06/18 09:11 96 Room Air 21 06/06/18 09:00 Room Air 06/06/18 08:57 74 123/72 06/06/18 08:00 98.0 79 20 116/64 (81) 93 06/06/18 08:00 94 06/06/18 04:00 98.1 79 18 123/72 (89) 92 06/06/18 04:00 74 06/06/18 00:00 73 06/06/18 00:00 96.4 81 17 131/67 (88) 91 06/05/18 21:00 Room Air 06/05/18 20:00 97.5 79 19 141/81 (101) 95 06/05/18 20:00 80 06/05/18 19:30 96 Room Air 06/05/18 19:27 77 20 100 Room Air 06/05/18 19:25 77 20 Room Air 06/05/18 19:24 77 20 96 Room Air 06/05/18 17:41 98.4 79 20 150/90 (110) 95 06/05/18 17:09 Room Air 06/05/18 16:55 105 06/05/18 16:45 98.6 70 16 144/73 100 Room Air 06/05/18 15:00 75 14 137/71 98 Room Air Height (Feet): 6 Height (Inches): 1.00 Weight (Pounds): 220 Microbiology Date/Time Source Procedure Growth Status 06/06/18 04:00 Nasopharynx Influenza Types A,B Antigen ([facility]ARTA) - Final Complete Current Medications Medications (Trade) Dose Ordered Sig/Meseret Route PRN Reason Start Time Stop Time Status Last Admin Dose Admin Acetaminophen (Tylenol) 650 mg Q4H PRN ORAL Mild Pain (Pain Scale 1-3) 06/05/18 16:30 07/05/18 16:14 Albuterol Sulfate (Proventil) 2.5 mg BIDPRN PRN HHN Shortness of Breath 06/05/18 16:31 06/10/18 16:30 Amlodipine Besylate (Norvasc) 10 mg DAILY ORAL 06/06/18 09:00 07/06/18 08:59 06/06/18 08:57 Atorvastatin Calcium (Lipitor) 10 mg BEDTIME ORAL 06/05/18 21:00 07/05/18 20:59 06/05/18 20:25 Dextrose (Dextrose 50%) 25 ml Q30M PRN IV Hypoglycemia 06/05/18 16:15 07/05/18 16:14 Dextrose (Dextrose 50%) 50 ml Q30M PRN IV Hypoglycemia 06/05/18 16:15 07/05/18 16:14 Diphenhydramine HCl (Benadryl) 25 mg Q6H PRN ORAL Itching/Pruritis 06/05/18 16:15 07/05/18 16:14 Enoxaparin Sodium (Lovenox) 40 mg Q24H SUBQ 06/06/18 09:00 07/06/18 08:59 06/06/18 09:06 Famotidine (Pepcid) 20 mg BID ORAL 06/06/18 09:00 07/06/18 08:59 06/06/18 09:23 Gabapentin (Neurontin) 800 mg QID ORAL 06/05/18 18:00 07/05/18 17:59 06/06/18 12:05 Hydromorphone HCl (Dilaudid) 1 mg Q12H PRN IVP Moderate Pain (Pain Scale 4-6) 06/05/18 17:07 06/12/18 17:06 Iopamidol (Isovue-300 100ml) 100 ml NOW PRN INJ Radiology Procedure 06/05/18 14:45 06/07/18 14:38 Ipratropium [place] (Atrovent) 500 mcg BIDPRN PRN HHN Shortness of Breath 06/05/18 17:45 06/10/18 17:44 Levofloxacin 150 ml @ 150 mls/hr Q24H IVPB 06/05/18 20:00 06/12/18 19:59 06/05/18 20:24 Lorazepam (Ativan 2mg/ml 1ml) 0.5 mg Q4H PRN IV For Anxiety 06/05/18 16:15 06/12/18 16:14 Pantoprazole (Protonix) 40 mg DAILY ORAL 06/06/18 09:00 07/06/18 08:59 06/06/18 08:57 Prednisone (predniSONE) 40 mg DAILY ORAL 06/06/18 09:00 07/06/18 08:59 06/06/18 08:57 Sodium Chloride 1,000 ml @ 75 mls/hr [id number] IV 06/05/18 19:00 07/05/18 18:59 06/06/18 08:57 Tamsulosin HCl (Flomax) 0.4 mg BEDTIME ORAL 06/05/18 21:00 07/05/18 20:59 06/05/18 20:25 Zolpidem Tartrate (Ambien) 5 mg DAILYPRN PRN ORAL Insomnia 06/05/18 16:15 06/12/18 16:14 Alivia Suggs M.D. Jun 06, 2018 14:23
--- NOTE | 2018-06-06 14:34 | History & Physical ---
History and Physical History & Physicial History and Physical Pulmonary Note Chief Complaint: Dyspnea/Resp distress HPI This patient is accompanied by his family. There is concern that he has had shortness of breath. The patient himself states he was forced to be here. He states he feels fine. However, the patient has a family members are respiratory therapist and came to see him and was concerned about how his lungs sounded. He was diagnosed with pneumonia last month. Allergies: : ACETAMINOPHEN (Verified Allergy, Unknown, 10/27/15) HYDROCODONE (Verified Allergy, Unknown, 10/27/15) Past Medical History: see triage record, HTN, asthma, other - SCD Social History: Denies: smoking, alcohol use, drug use Reviewed Nursing Documentation: PMH: Agreed; PSxH: Agreed Past Medical History: No History, Except For Hx Cardiac Problems: No - HYPERCHOLESTEROLEMIA Hx Hypertension: Yes Hx Pacemaker: No - SICKLE CELL Hx Asthma: Yes Hx COPD: No - PNA Hx Cancer: No Hx Gastrointestinal Problems: Yes Hx Neurological Problems: No - RIGHT HIP SCIATICAL PAIN Hx Weakness: Yes - RIGHT LOWER EXT All Other Systems: negative except mentioned in HPI Physical Exam Vital Signs Noted Date Time Temp Pulse Resp B/P (MAP) Pulse Ox O2 Delivery O2 Flow Rate FiO2 06/05/18 11:16 98.4 87 20 138/75 92 Room Air Sp02 EP Interpretation: reviewed, normal General Appearance: no apparent distress, alert, GCS 15, non-toxic Head: normocephalic, atraumatic Eyes: bilateral eye normal inspection, bilateral eye PERRL ENT: hearing grossly normal, normal pharynx, no angioedema, normal voice Neck: full range of motion, supple/symm/no masses Respiratory: chest non-tender, lungs clear, normal breath sounds, no respiratory distress, no retraction, no accessory muscle use, speaking full sentences Cardiovascular #1: regular rate, rhythm, no edema Gastrointestinal: normal bowel sounds, non tender, soft, non-distended, no guarding, no rebound Rectal: deferred Musculoskeletal: back normal, gait/station normal, normal range of motion, non- tender Neurologic: alert, oriented x3, responsive, motor strength/tone normal, sensory intact, speech normal Psychiatric: judgement/insight normal, memory normal, mood/affect normal, no suicidal/homicidal ideation Skin: normal color, no rash, warm/dry, well hydrated Impression: Pneumonia CHF (congestive heart failure) SCD HTN Asthma Plan Antibiotics per ID PPX HHN WEB SITE ADMIN medications CT chest noted - chronic lower zone scarring Laboratory Tests Test 06/05/18 12:00 White Blood Count 10.4 K/UL (4.8-10.8) Red Blood Count 3.92 M/UL (4.70-6.10) L Hemoglobin 11.3 G/DL (14.2-18.0) L Hematocrit 33.2 % (42.0-52.0) L Mean Corpuscular Volume 85 FL (80-99) Mean Corpuscular Hemoglobin 28.8 PG (27.0-31.0) Mean Corpuscular Hemoglobin Concent 34.0 G/DL (32.0-36.0) Red Cell Distribution Width 13.5 % (11.6-14.8) Platelet Count 389 K/UL (150-450) Mean Platelet Volume 7.1 FL (6.5-10.1) Neutrophils (%) (Auto) 58.2 % (45.0-75.0) Lymphocytes (%) (Auto) 28.9 % (20.0-45.0) Monocytes (%) (Auto) 9.9 % (1.0-10.0) Eosinophils (%) (Auto) 0.9 % (0.0-3.0) Basophils (%) (Auto) 2.0 % (0.0-2.0) Prothrombin Time 10.5 SEC (9.30-11.50) Prothrombin Time INR 1.0 (0.9-1.1) PTT 27 SEC (23-33) Sodium Level 136 MMOL/L (136-145) Potassium Level 3.9 MMOL/L (3.5-5.1) Chloride Level 102 MMOL/L (98-107) Carbon Dioxide Level 28 MMOL/L (21-32) Anion Gap 6 mmol/L (5-15) Blood Urea Nitrogen 5 mg/dL (7-18) L Creatinine 0.9 MG/DL (0.55-1.30) Estimate Glomerular Filtration Rate mL/min (>60) Glucose Level 117 MG/DL (74-106) H Calcium Level 9.2 MG/DL (8.5-10.1) Total Bilirubin 1.4 MG/DL (0.2-1.0) H Direct Bilirubin 0.3 MG/DL (0.0-0.3) Aspartate Amino Transferase (AST) 28 U/L (15-37) Alanine Aminotransferase (ALT) 24 U/L (12-78) Alkaline Phosphatase 91 U/L (46-116) Total Creatine Kinase 131 U/L (26-308) Creatine Kinase MB 1.3 NG/ML (0.0-3.6) Creatine Kinase MB Relative Index 0.9 Troponin I 0.000 ng/mL (0.000-0.056) Total Protein 7.2 G/DL (6.4-8.2) Albumin 3.6 G/DL (3.4-5.0) Globulin 3.6 g/dL Albumin/Globulin Ratio 1.0 (1.0-2.7) EKG Diagnostic Results Rate: normal Rhythm: NSR ST Segments: no acute changes Rhythm Strip Diag. Results EP Interpretation: yes Rate: 70's Rhythm: NSR, no PVC's, no ectopy Chest X-Ray Diagnostic Results Chest X-Ray Diagnostic Results : Chest X-Ray Ordered: Yes # of Views/Limited/Complete: 1 View Indication: Shortness of Breath EP Interpretation: Yes Interpretation: no effusion, no pneumothorax, other - Diffuse patchy opacities. LLL opacity. Sammy Ham MD Jun 06, 2018 14:34
[2018-06-06] MEDS ORDERED: cefTRIAXone 1 GM in NS 55 ML IVPB SCH (15:00)
[2018-06-06 16:00] VITALS: BP 145/85
--- NOTE | 2018-06-06 18:45 | History and Physical Report ---
DATE OF ADMISSION: 06/05/2018 CONSULTANTS: 1. Anjel Bob M.D. 2. . 3. Bernardo Strauss M.D. 4. Rodri William M.D. CHIEF COMPLAINT: Shortness of breath, congestive heart failure, left lower lobe opacity, pneumonia, and sepsis. BRIEF HISTORY: This is an 82-year-old male, who lives at home, presented to [facility] last night with increased shortness of breath. He was found to have exacerbation of congestive heart failure, pneumonia, sepsis, and also a questionable left lower lobe opacity. The patient was admitted to telemetry for further care. Currently, slight short of breath in bed. No complaint. REVIEW OF SYSTEMS: No chest pain. Slight short of breath. No nausea, vomiting, or diarrhea. PAST MEDICAL HISTORY: Includes sickle cell disease and hydrocele. PAST SURGICAL HISTORY: None. MEDICATIONS: Include enoxaparin, amlodipine, prednisone, pantoprazole, famotidine, atorvastatin, levofloxacin, gabapentin, ipratropium, and Dilaudid. ALLERGIES: Aspirin, ceftriaxone, and hydrocodone. SOCIAL HISTORY: No smoking. No alcohol. No intravenous drug abuse. FAMILY HISTORY: Noncontributory. PHYSICAL EXAMINATION: GENERAL: Calm in bed, slight short of breath, oriented x3, and in no acute distress. VITAL SIGNS: Temperature is 98 degrees, pulse 82, respirations 20, and blood pressure 119/71. CARDIOVASCULAR: No murmurs. LUNGS: Poor air exchange. ABDOMEN: Bowel sounds distant. EXTREMITIES: No cyanosis, clubbing, or edema. NEURO: The patient moves all extremities, slightly weak. LABORATORY DATA: Labs, at this time, show H and H are 11.3 and 33, otherwise CBC is normal. BMP show BUN 5 and glucose 117. Troponin 0.00. INR is 1.0. ASSESSMENT: 1. Excessive congestive heart failure. 2. Left lower lobe opacity. 3. Anemia. 4. Pneumonia. 5. Sepsis. PLAN: 1. O2 and pulmonary treatment. 2. Antibiotics per Infectious Disease. 3. Pain control. 4. Dietary evaluation. 5. PT evaluation. 6. CBC and BMP in the morning. Alen Goldman D.O. DR: BROOKLYNN JOB#: [id number] CC:
[2018-06-06] MEDS ORDERED: NS 275ml ONE (19:34)
[2018-06-06] MEDS ORDERED: Tubing IV Secondary IV ONE (19:34)
[2018-06-06 20:00] VITALS: BP 140/70
[2018-06-06] MEDS: Tamsulosin 0.4mg cap ORAL SCH (20:18)
[2018-06-07] VITALS: BP 135/69
[2018-06-07 04:00] VITALS: BP 135/77
[2018-06-07 08:00] VITALS: BP 138/94
[2018-06-07 08:08] LABS: HEMATOCRIT 38.3 % (42.0-52.0); HEMOGLOBIN 12.8 G/DL (14.2-18.0); MEAN CORPUSCULAR VOLUME 86 FL (80-99); PLATELET COUNT 377 K/UL (150-450); RED BLOOD COUNT 4.46 M/UL (4.70-6.10); RED CELL DISTRIBUTION WIDTH 13.7 % (11.6-14.8); WHITE BLOOD COUNT 16.3 K/UL (4.8-10.8)
[2018-06-07] MEDS: Enoxaparin 40mg Inj SUBQ SCH (08:23)
--- NOTE | 2018-06-07 08:35 | General Progress Note ---
Assessment/Plan Problem List: (1) CHF (congestive heart failure) ICD Codes: I50.9 - Heart failure, unspecified SNOMED: 40907372 (2) Sepsis ICD Codes: A41.9 - Sepsis, unspecified organism SNOMED: 03504241 (3) Leukocytosis ICD Codes: D72.829 - Elevated white blood cell count, unspecified SNOMED: 750541144, 604789129 (4) Sickle cell disease ICD Codes: D57.1 - Sickle cell disease SNOMED: 257453112 (5) Anemia ICD Codes: D64.9 - Anemia SNOMED: 764429758 Status: unchanged Assessment/Plan o2 pulm tx abx cbc bmp am Subjective Constitutional: Reports: weakness Respiratory: Reports: shortness of breath Allergies: Coded Allergies: ASPIRIN (Verified Allergy, Unknown, 06/05/18) CEFTRIAXONE (Verified Allergy, Unknown, 06/06/18) hives HYDROCODONE (Verified Allergy, Unknown, 10/27/15) All Systems: reviewed and negative except above Objective Last 24 Hour Vital Signs Date Time Temp Pulse Resp B/P (MAP) Pulse Ox O2 Delivery O2 Flow Rate FiO2 06/07/18 08:22 90 138/94 06/07/18 08:00 98.1 90 19 138/94 (109) 98 06/07/18 04:00 81 06/07/18 04:00 98.0 72 20 135/77 (96) 96 06/07/18 00:00 82 06/07/18 00:00 98.0 81 20 135/69 (91) 97 06/06/18 21:00 Room Air 06/06/18 20:00 87 06/06/18 20:00 99.0 96 20 140/70 (93) 95 06/06/18 16:00 98.2 101 20 145/85 (105) 96 06/06/18 16:00 98 06/06/18 12:00 67 06/06/18 12:00 98.1 83 20 119/71 (87) 95 06/06/18 09:11 96 Room Air 21 06/06/18 09:00 Room Air 06/06/18 08:57 74 123/72 Intake and Output 06/06/18 06/07/18 18:59 06:59 # Voids 2 Laboratory Tests 06/07/18 06:50: White Blood Count 16.3H, Red Blood Count 4.46L, Hemoglobin 12.8L, Hematocrit 38.3L, Mean Corpuscular Volume 86, Mean Corpuscular Hemoglobin 28.7, Mean Corpuscular Hemoglobin Concent 33.4, Red Cell Distribution Width 13.7, Platelet Count 377, Mean Platelet Volume 6.1L, Neutrophils (%) (Auto) , Lymphocytes (%) ( Auto) , Monocytes (%) (Auto) , Eosinophils (%) (Auto) , Basophils (%) (Auto) , Neutrophils % (Manual) [Pending], Lymphocytes % (Manual) [Pending], Platelet Estimate [Pending], Platelet Morphology [Pending], Sodium Level [Pending], Potassium Level [Pending], Chloride Level [Pending], Carbon Dioxide Level [ Pending], Blood Urea Nitrogen [Pending], Creatinine [Pending], Estimat Glomerular Filtration Rate [Pending], Glucose Level [Pending], Calcium Level [ Pending], Total Bilirubin [Pending], Aspartate Amino Transf (AST/SGOT) [Pending] , Alanine Aminotransferase (ALT/SGPT) [Pending], Alkaline Phosphatase [Pending] , Total Protein [Pending], Albumin [Pending], Globulin [Pending] Height (Feet): 6 Height (Inches): 1.00 Weight (Pounds): 236 General Appearance: lethargic EENT: normal ENT inspection Neck: normal alignment Cardiovascular: normal peripheral pulses, normal rate, regular rhythm Respiratory/Chest: chest wall non-tender, lungs clear, normal breath sounds Abdomen: normal bowel sounds, non tender, soft Extremities: normal inspection Edema: no edema noted Arm (L), no edema noted Arm (R), no edema noted Leg (L), no edema noted Leg (R), no edema noted Pedal (L), no edema noted Pedal (R), no edema noted Generalized Neurologic: responsive, motor weakness Skin: normal pigmentation, warm/dry Alen Goldman DO Jun 07, 2018 08:35
[2018-06-07 08:39] LABS: ALANINE AMINOTRANSFERASE 23 U/L (12-78); ALBUMIN 3.7 G/DL (3.4-5.0); ALKALINE PHOSPHATASE 85 U/L (46-116); ANION GAP 10 mmol/L (5-15); ASPARTATE AMINO TRANSFERASE 25 U/L (15-37); BILIRUBIN,TOTAL 1.7 MG/DL (0.2-1.0); BLOOD UREA NITROGEN 8 mg/dL (7-18); CALCIUM 9.7 MG/DL (8.5-10.1); CARBON DIOXIDE 28 MMOL/L (21-32); CHLORIDE 107 MMOL/L (98-107); CREATININE 0.8 MG/DL (0.55-1.30); SODIUM 145 MMOL/L (136-145)
[2018-06-07 08:49] LABS: BILIRUBIN,DIRECT 0.3 MG/DL (0.0-0.3)
--- NOTE | 2018-06-07 11:07 | Infectious Diseases Prog Note ---
Assessment/Plan Assessment/Plan Assessment: SOB- 2ry to bronchitis; improving -CT chest: No acute abnormality. Minimal chronic scarring within the lungs bilaterally. 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 Prominence of the interstitium and pulmonary vascular markings possibly artifactual. Correlate clinically to exclude mild congestion/CHF. Streaky left basilar likely subsegmental atelectasis. -sp cx normal resp haseeb to date Afebrile Leukocytosis (on steroids) REcent PNA 04/2017 (LLL) -s/p 7 days Cefepime and zithromax hx Bl vascular necrosis hips Sciatica pain hyperlipidemia History of sickle cell disease Hiatal hernia. HTN Asthma Cefriaxone reaction in the ED- hives Plan: -Continue empiric PO Levaquin #3/5 for bronchitis -06/05 SP Ceftriaxone x1 -f/u cx -Monitor CBC/CMP, temperatures -aspiration precautions Thank you for this consultation. Will continue to follow along with you. Discussed with RN. Subjective Allergies: Coded Allergies: ASPIRIN (Verified Allergy, Unknown, 06/05/18) CEFTRIAXONE (Verified Allergy, Unknown, 06/06/18) hives HYDROCODONE (Verified Allergy, Unknown, 10/27/15) Subjective afebrile wbc increased (on steroids) Objective Vital Signs Last 24 Hour Vital Signs Date Time Temp Pulse Resp B/P (MAP) Pulse Ox O2 Delivery O2 Flow Rate FiO2 06/07/18 09:00 Room Air 06/07/18 08:22 90 138/94 06/07/18 08:06 92 06/07/18 08:00 98.1 90 19 138/94 (109) 98 06/07/18 04:00 81 06/07/18 04:00 98.0 72 20 135/77 (96) 96 06/07/18 00:00 82 06/07/18 00:00 98.0 81 20 135/69 (91) 97 06/06/18 21:00 Room Air 06/06/18 20:00 87 06/06/18 20:00 99.0 96 20 140/70 (93) 95 06/06/18 16:00 98.2 101 20 145/85 (105) 96 06/06/18 16:00 98 06/06/18 12:00 67 06/06/18 12:00 98.1 83 20 119/71 (87) 95 Height (Feet): 6 Height (Inches): 1.00 Weight (Pounds): 236 Objective General Appearance: no apparent distress, alert, GCS 15 HEENT: normocephalic, atraumatic, bilateral eye PERRL normal pharynx, Neck: full range of motion, supple/symm/no masses Respiratory: chest non-tender, lungs clear, normal breath sounds, no respiratory distress, no retraction, no accessory muscle use, speaking full sentences Cardiovascular regular rate, rhythm, no edema Gastrointestinal: normal bowel sounds, non tender, soft, non-distended, no guarding, no rebound Musculoskeletal: back normal, gait/station normal, normal range of motion, non- tender Skin: normal color, no rash, warm/dry, well hydrated Microbiology Date/Time Source Procedure Growth Status 06/06/18 04:00 Nasopharynx Influenza Types A,B Antigen (MARTA) - Final Complete 06/05/18 06:15 Sputum Induced Gram Stain - Final Resulted 06/05/18 06:15 Sputum Induced Sputum Culture - Preliminary NORMAL UPPER RESPIRATORY HASEEB AT 24 ... Resulted Laboratory Tests Test 06/07/18 06:50 White Blood Count 16.3 K/UL (4.8-10.8) H Red Blood Count 4.46 M/UL (4.70-6.10) L Hemoglobin 12.8 G/DL (14.2-18.0) L Hematocrit 38.3 % (42.0-52.0) L Mean Corpuscular Volume 86 FL (80-99) Mean Corpuscular Hemoglobin 28.7 PG (27.0-31.0) Mean Corpuscular Hemoglobin Concent 33.4 G/DL (32.0-36.0) Red Cell Distribution Width 13.7 % (11.6-14.8) Platelet Count 377 K/UL (150-450) Mean Platelet Volume 6.1 FL (6.5-10.1) L Neutrophils (%) (Auto) % (45.0-75.0) Lymphocytes (%) (Auto) % (20.0-45.0) Monocytes (%) (Auto) % (1.0-10.0) Eosinophils (%) (Auto) % (0.0-3.0) Basophils (%) (Auto) % (0.0-2.0) Differential Total Cells Counted 100 Neutrophils % (Manual) 54 % (45-75) Lymphocytes % (Manual) 38 % (20-45) Monocytes % (Manual) 6 % (1-10) Eosinophils % (Manual) 1 % (0-3) Basophils % (Manual) 0 % (0-2) Band Neutrophils 1 % (0-8) Platelet Estimate Adequate Platelet Morphology Normal Red Blood Cell Morphology Normal Sodium Level 145 MMOL/L (136-145) Potassium Level 4.0 MMOL/L (3.5-5.1) Chloride Level 107 MMOL/L (98-107) Carbon Dioxide Level 28 MMOL/L (21-32) Anion Gap 10 mmol/L (5-15) Blood Urea Nitrogen 8 mg/dL (7-18) Creatinine 0.8 MG/DL (0.55-1.30) Estimat Glomerular Filtration Rate mL/min (>60) Glucose Level 95 MG/DL (74-106) Calcium Level 9.7 MG/DL (8.5-10.1) Total Bilirubin 1.7 MG/DL (0.2-1.0) H Direct Bilirubin 0.3 MG/DL (0.0-0.3) Aspartate Amino Transf (AST/SGOT) 25 U/L (15-37) Alanine Aminotransferase (ALT/SGPT) 23 U/L (12-78) Alkaline Phosphatase 85 U/L (46-116) Total Protein 7.4 G/DL (6.4-8.2) Albumin 3.7 G/DL (3.4-5.0) Globulin 3.7 g/dL Albumin/Globulin Ratio 1.0 (1.0-2.7) Current Medications Medications (Trade) Dose Ordered Sig/Mese[place] Route PRN Reason Start Time Stop Time Status Last Admin Dose Admin Acetaminophen (Tylenol) 650 mg Q4H PRN ORAL Mild Pain (Pain Scale 1-3) 06/05/18 16:30 07/05/18 16:14 Albuterol Sulfate (Proventil) 2.5 mg BIDPRN PRN HHN Shortness of Breath 06/05/18 16:31 06/10/18 16:30 Amlodipine Besylate (Norvasc) 10 mg DAILY ORAL 06/06/18 09:00 07/06/18 08:59 06/07/18 08:22 Atorvastatin Calcium (Lipitor) 10 mg BEDTIME ORAL 06/05/18 21:00 07/05/18 20:59 06/06/18 20:18 Dextrose (Dextrose 50%) 25 ml Q30M PRN IV Hypoglycemia 06/05/18 16:15 07/05/18 16:14 Dextrose (Dextrose 50%) 50 ml Q30M PRN IV Hypoglycemia 06/05/18 16:15 07/05/18 16:14 Diphenhydramine HCl (Benadryl) 25 mg Q6H PRN ORAL Itching/Pruritis 06/05/18 16:15 07/05/18 16:14 Enoxaparin Sodium (Lovenox) 40 mg Q24H SUBQ 06/06/18 09:00 07/06/18 08:59 06/07/18 08:23 Famotidine (Pepcid) 20 mg BID ORAL 06/06/18 09:00 07/06/18 08:59 06/07/18 08:22 Gabapentin (Neurontin) 800 mg QID ORAL 06/05/18 18:00 07/05/18 17:59 06/07/18 08:22 Hydromorphone HCl (Dilaudid) 1 mg Q12H PRN IVP Moderate Pain (Pain Scale 4-6) 06/05/18 17:07 06/12/18 17:06 Iopamidol (Isovue-300 100ml) 100 ml NOW PRN INJ Radiology Procedure 06/05/18 14:45 06/07/18 14:38 Ipratropium [place] (Atrovent) 500 mcg BIDPRN PRN HHN Shortness of Breath 06/05/18 17:45 06/10/18 17:44 Levofloxacin 150 ml @ 150 mls/hr Q24H IVPB 06/05/18 20:00 06/12/18 19:59 06/06/18 20:19 Lorazepam (Ativan 2mg/ml 1ml) 0.5 mg Q4H PRN IV For Anxiety 06/05/18 16:15 06/12/18 16:14 Pantoprazole (Protonix) 40 mg DAILY ORAL 06/06/18 09:00 07/06/18 08:59 06/07/18 08:22 Prednisone (predniSONE) 40 mg DAILY ORAL 06/06/18 09:00 07/06/18 08:59 06/07/18 08:21 Sodium Chloride 1,000 ml @ 75 mls/hr [id number] IV 06/05/18 19:00 07/05/18 18:59 06/06/18 22:38 Tamsulosin HCl (Flomax) 0.4 mg BEDTIME ORAL 06/05/18 21:00 07/05/18 20:59 06/06/18 20:18 Zolpidem Tartrate (Ambien) 5 mg DAILYPRN PRN ORAL Insomnia 06/05/18 16:15 06/12/18 16:14 Alivia Suggs M.D. Jun 07, 2018 11:07
[2018-06-07 12:00] VITALS: BP 125/69
[2018-06-07] MEDS: NS w/KCl 20mEq 1,000 ML IV SCH (12:06)
--- NOTE | 2018-06-07 12:25 | Cardiology Report ---
APPROVED REPORT EXAM: Two-dimensional and M-mode echocardiogram with Doppler and color Doppler. INDICATION Shortness of breath M-Mode DIMENSIONS IVSd1.4 (0.7-1.1cm)Left Atrium (MM)3.7 (1.6-4.0cm) LVDd4.6 (3.5-5.6cm)Aortic Root3.5 (2.0-3.7cm) PWd0.9 (0.7-1.1cm)Aortic Cusp Exc.2.2 (1.5-2.0cm) LVDs2.7 (2.5-4.0cm) PWs1.8 cm Normal left ventricular chamber size, systolic function and wall motion. Left ventricular ejection fraction estimated to be 50-55 %. Mild left ventricular hypertrophy. Anterior Echo-free space, may be due to pericardial fat or effusion. Mild left atrial enlargement. Right cardiac chamber sizes are within normal limits. Focal aortic valve sclerosis with adequate cusp excursion. Mildly thickened mitral valve leaflets with normal excursion. Mild mitral annulus and aortic root calcification. Normal pulmonic valve structure. Normal tricuspid valve structure. IVC is normal in size with physiological collapse. A color flow and spectral Doppler study was performed and revealed: Trace aortic insufficiency. Mild mitral regurgitation. Mitral diastolic velocities suggest mild left ventricular diastolic dysfunction (Grade I). Mild tricuspid regurgitation. Tricuspid systolic velocities suggests peak right ventricular systolic pressure of 29 mmHg. Mild pulmonic regurgitation present.
[2018-06-07 16:00] VITALS: BP 148/67
--- NOTE | 2018-06-07 16:37 | Consultation ---
Consult Note Consult Note HEMATOLOGY-ONCOLOGY CONSULTATION REFERRING PHYSICIAN: Alen Goldman REASON FOR CONSULT: Anemia, leukocytosis DATE OF CONSULT: 06/07/2018 HISTORY OF PRESENT ILLNESS: This is an 82-year-old male, who lives at home, presented to [facility] last night with increased shortness of breath. He was found to have exacerbation of congestive heart failure, pneumonia, sepsis, and also a questionable left lower lobe opacity. The patient was admitted to telemetry for further care. Hematology service consulted for the evaluation of anemia and leukocytosis. PAST MEDICAL HISTORY: sickle cell disease and hydrocele. PAST SURGICAL HISTORY: None. ALLERGIES: Aspirin, ceftriaxone, and hydrocodone. SOCIAL HISTORY: No smoking. No alcohol. No intravenous drug abuse. FAMILY HISTORY: Noncontributory. REVIEW OF SYSTEMS: No chest pain. Slight short of breath. No nausea, vomiting , or diarrhea. PHYSICAL EXAMINATION: GENERAL: Calm in bed, slight short of breath, oriented x3, and in no acute distress. VITAL SIGNS: Have been reviewed CARDIOVASCULAR: No murmurs. LUNGS: Poor air exchange. ABDOMEN: Bowel sounds distant. EXTREMITIES: No cyanosis, clubbing, or edema. NEURO: The patient moves all extremities, slightly weak. MEDICATIONS: enoxaparin, amlodipine, prednisone, pantoprazole, famotidine, atorvastatin, levofloxacin, gabapentin, ipratropium, and Dilaudid. LABORATORY DATA: wbc 16.3 hgb 12.8 plt 377 IMAGING: CT chest --> No acute abnormality ASSESSMENT AND RECOMMENDATIONS # Leukocytosis. Secondary to pna, sepsis --> Peripheral has been ordered, results are pending --> Medications have been reviewed --> Imaging has been reviewed, reveals love opacity --> Blood cultures and urine cultures prn --> has been started on abx, empiric treatment # Anemia of chronic disease due to underlying chronic medical issues, multifactorial. --> Current Hgb >12, no w/u required at this time --> Monitor for stability # Congestive heart failure. # Left lower lobe opacity. # Pneumonia. ID is following, appreciate recs. --> O2 and pulmonary treatment. --> Antibiotics per Infectious Disease. # Sepsis. GREATLY APPRECIATE CONSULTATION. Rodri William MD Jun 07, 2018 16:37
[2018-06-07 20:00] VITALS: BP 155/84
[2018-06-07] MEDS: Tamsulosin 0.4mg cap ORAL SCH (20:45)
[2018-06-08] VITALS: BP 138/76
[2018-06-08] MEDS: NS w/KCl 20mEq 1,000 ML IV SCH ×2 (00:40→12:49)
[2018-06-08 04:00] VITALS: BP 151/87
--- NOTE | 2018-06-08 07:27 | General Progress Note ---
Assessment/Plan Status: stable Assessment/Plan # Leukocytosis. Secondary to pna, sepsis --> Peripheral has been reviewed, no blasts noted --> Medications have been reviewed --> Imaging has been reviewed, reveals lobe opacity --> Sputum cx is negative --> has been started on abx, empiric treatment # Anemia of chronic disease due to underlying chronic medical issues, multifactorial. --> Current Hgb >12, no w/u required at this time --> Monitor for stability # Congestive heart failure. # Left lower lobe opacity. # Pneumonia. ID is following, appreciate recs. --> O2 and pulmonary treatment. --> Antibiotics per Infectious Disease. # Sepsis. GREATLY APPRECIATE CONSULTATION. Subjective Date patient seen: Jun 08, 2018 Allergies: Coded Allergies: ASPIRIN (Verified Allergy, Unknown, 06/05/18) CEFTRIAXONE (Verified Allergy, Unknown, 06/06/18) hives HYDROCODONE (Verified Allergy, Unknown, 10/27/15) All Systems: reviewed and negative except above Subjective Pt awake and alert, in stable condition. No acute events. VS stable. Objective Last 24 Hour Vital Signs Date Time Temp Pulse Resp B/P (MAP) Pulse Ox O2 Delivery O2 Flow Rate FiO2 06/08/18 04:00 73 06/08/18 04:00 98.5 84 20 151/87 (108) 96 06/08/18 00:00 98.0 77 20 138/76 (96) 94 06/08/18 00:00 101 06/07/18 21:00 Room Air 06/07/18 20:00 98.6 87 20 155/84 (107) 97 06/07/18 20:00 84 06/07/18 16:00 98.6 96 20 148/67 (94) 95 06/07/18 15:28 83 06/07/18 12:00 98.6 73 20 125/69 (87) 95 06/07/18 11:51 73 06/07/18 09:00 Room Air 06/07/18 08:22 90 138/94 06/07/18 08:06 92 06/07/18 08:00 98.1 90 19 138/94 (109) 98 Intake and Output 06/07/18 06/08/18 18:59 06:59 Intake Total 1320 ml 825 ml Balance 1320 ml 825 ml Intake Oral 570 ml IV Total 750 ml 825 ml # Voids 2 # Bowel Movements 2 Height (Feet): 6 Height (Inches): 1.00 Weight (Pounds): 236 Objective PHYSICAL EXAMINATION: GENERAL: Calm in bed, slight short of breath, oriented x3, and in no acute distress. VITAL SIGNS: Have been reviewed CARDIOVASCULAR: No murmurs. LUNGS: Poor air exchange. ABDOMEN: Bowel sounds distant. EXTREMITIES: No cyanosis, clubbing, or edema. NEURO: The patient moves all extremities, slightly weak. Rodri William MD Jun 08, 2018 07:27
[2018-06-08 08:00] VITALS: BP 160/91
--- NOTE | 2018-06-08 08:12 | General Progress Note ---
Assessment/Plan Problem List: (1) CHF (congestive heart failure) ICD Codes: I50.9 - Heart failure, unspecified SNOMED: 44326593 (2) Sepsis ICD Codes: A41.9 - Sepsis, unspecified organism SNOMED: 19232395 (3) Leukocytosis ICD Codes: D72.829 - Elevated white blood cell count, unspecified SNOMED: 716954608, 800003006 (4) Sickle cell disease ICD Codes: D57.1 - Sickle cell disease SNOMED: 017605806 (5) Anemia ICD Codes: D64.9 - Anemia SNOMED: 626893958 Status: stable, progressing Assessment/Plan o2 pulm tx abx cbc bmp am dc plan w hh if clear Subjective Constitutional: Reports: weakness Respiratory: Reports: shortness of breath Allergies: Coded Allergies: ASPIRIN (Verified Allergy, Unknown, 06/05/18) CEFTRIAXONE (Verified Allergy, Unknown, 06/06/18) hives HYDROCODONE (Verified Allergy, Unknown, 10/27/15) All Systems: reviewed and negative except above Subjective calm sitting in bed Objective Last 24 Hour Vital Signs Date Time Temp Pulse Resp B/P (MAP) Pulse Ox O2 Delivery O2 Flow Rate FiO2 06/08/18 08:00 98.0 84 20 160/91 (114) 96 06/08/18 04:00 73 06/08/18 04:00 98.5 84 20 151/87 (108) 96 06/08/18 00:00 98.0 77 20 138/76 (96) 94 06/08/18 00:00 101 06/07/18 21:00 Room Air 06/07/18 20:00 98.6 87 20 155/84 (107) 97 06/07/18 20:00 84 06/07/18 16:00 98.6 96 20 148/67 (94) 95 06/07/18 15:28 83 06/07/18 12:00 98.6 73 20 125/69 (87) 95 06/07/18 11:51 73 06/07/18 09:00 Room Air 06/07/18 08:22 90 138/94 Intake and Output 06/07/18 06/08/18 18:59 06:59 Intake Total 1320 ml 825 ml Balance 1320 ml 825 ml Intake Oral 570 ml IV Total 750 ml 825 ml # Voids 2 # Bowel Movements 2 Laboratory Tests 06/08/18 07:30: Sodium Level [Pending], Potassium Level [Pending], Chloride Level [Pending], Carbon Dioxide Level [Pending], Blood Urea Nitrogen [Pending], Creatinine [ Pending], Estimat Glomerular Filtration Rate [Pending], Glucose Level [Pending] , Calcium Level [Pending] Height (Feet): 6 Height (Inches): 1.00 Weight (Pounds): 236 General Appearance: lethargic EENT: normal ENT inspection Neck: normal alignment Cardiovascular: normal peripheral pulses, normal rate, regular rhythm Respiratory/Chest: chest wall non-tender, lungs clear, normal breath sounds Abdomen: normal bowel sounds, non tender, soft Extremities: normal inspection Edema: no edema noted Arm (L), no edema noted Arm (R), no edema noted Leg (L), no edema noted Leg (R), no edema noted Pedal (L), no edema noted Pedal (R), no edema noted Generalized Neurologic: responsive, motor weakness Skin: normal pigmentation, warm/dry Alen Goldman DO Jun 08, 2018 08:12
[2018-06-08 08:24] LABS: ANION GAP 9 mmol/L (5-15); BLOOD UREA NITROGEN 8 mg/dL (7-18); CARBON DIOXIDE 28 MMOL/L (21-32); CHLORIDE 105 MMOL/L (98-107); CREATININE 0.9 MG/DL (0.55-1.30); SODIUM 142 MMOL/L (136-145)
[2018-06-08] MEDS: Enoxaparin 40mg Inj SUBQ SCH (08:25)
--- NOTE | 2018-06-08 08:31 | Pulmonology Progress Note ---
Assessment/Plan Assessment/Plan Pulmonary Progress Note Patient seen 06/07/2018 Chief Complaint: Dyspnea/Resp distress HPI This patient is accompanied by his family. There is concern that he has had shortness of breath. The patient himself states he was forced to be here. He states he feels fine. However, the patient has a family members are respiratory therapist and came to see him and was concerned about how his lungs sounded. He was diagnosed with pneumonia last month. Allergies: : ACETAMINOPHEN (Verified Allergy, Unknown, 10/27/15) HYDROCODONE (Verified Allergy, Unknown, 10/27/15) Past Medical History: see triage record, HTN, asthma, other - SCD Social History: Denies: smoking, alcohol use, drug use Reviewed Nursing Documentation: PMH: Agreed; PSxH: Agreed Past Medical History: No History, Except For Hx Cardiac Problems: No - HYPERCHOLESTEROLEMIA Hx Hypertension: Yes Hx Pacemaker: No - SICKLE CELL Hx Asthma: Yes Hx COPD: No - PNA Hx Cancer: No Hx Gastrointestinal Problems: Yes Hx Neurological Problems: No - RIGHT HIP SCIATICAL PAIN Hx Weakness: Yes - RIGHT LOWER EXT All Other Systems: negative except mentioned in HPI Physical Exam Vital Signs Noted Sp02 EP Interpretation: reviewed, normal General Appearance: no apparent distress, alert, GCS 15, non-toxic Head: normocephalic, atraumatic Eyes: bilateral eye normal inspection, bilateral eye PERRL ENT: hearing grossly normal, normal pharynx, no angioedema, normal voice Neck: full range of motion, supple/symm/no masses Respiratory: chest non-tender, lungs clear, normal breath sounds, no respiratory distress, no retraction, no accessory muscle use, speaking full sentences Cardiovascular #1: regular rate, rhythm, no edema Gastrointestinal: normal bowel sounds, non tender, soft, non-distended, no guarding, no rebound Rectal: deferred Musculoskeletal: back normal, gait/station normal, normal range of motion, non- tender Neurologic: alert, oriented x3, responsive, motor strength/tone normal, sensory intact, speech normal Psychiatric: judgement/insight normal, memory normal, mood/affect normal, no suicidal/homicidal ideation Skin: normal color, no rash, warm/dry, well hydrated Impression: Pneumonia CHF (congestive heart failure) SCD HTN Asthma Plan Antibiotics per ID PPX 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9 % (1.0-10.0) Eosinophils (%) (Auto) 0.9 % (0.0-3.0) Basophils (%) (Auto) 2.0 % (0.0-2.0) Prothrombin Time 10.5 SEC (9.30-11.50) Prothrombin Time INR 1.0 (0.9-1.1) PTT 27 SEC (23-33) Sodium Level 136 MMOL/L (136-145) Potassium Level 3.9 MMOL/L (3.5-5.1) Chloride Level 102 MMOL/L (98-107) Carbon Dioxide Level 28 MMOL/L (21-32) Anion Gap 6 mmol/L (5-15) Blood Urea Nitrogen 5 mg/dL (7-18) L Creatinine 0.9 MG/DL (0.55-1.30) Estimate Glomerular Filtration Rate mL/min (>60) Glucose Level 117 MG/DL (74-106) H Calcium Level 9.2 MG/DL (8.5-10.1) Total Bilirubin 1.4 MG/DL (0.2-1.0) H Direct Bilirubin 0.3 MG/DL (0.0-0.3) Aspartate Amino Transferase (AST) 28 U/L (15-37) Alanine Aminotransferase (ALT) 24 U/L (12-78) Alkaline Phosphatase 91 U/L (46-116) Total Creatine Kinase 131 U/L (26-308) Creatine Kinase MB 1.3 NG/ML (0.0-3.6) Creatine Kinase MB Relative Index 0.9 Troponin I 0.000 ng/mL (0.000-0.056) Total Protein 7.2 G/DL (6.4-8.2) Albumin 3.6 G/DL (3.4-5.0) Globulin 3.6 g/dL Albumin/Globulin Ratio 1.0 (1.0-2.7) EKG Diagnostic Results Rate: normal Rhythm: NSR ST Segments: no acute changes Rhythm Strip Diag. Results EP Interpretation: yes Rate: 70's Rhythm: NSR, no PVC's, no ectopy Chest X-Ray Diagnostic Results Chest X-Ray Diagnostic Results : Chest X-Ray Ordered: Yes # of Views/Limited/Complete: 1 View Indication: Shortness of Breath EP Interpretation: Yes Interpretation: no effusion, no pneumothorax, other - Diffuse patchy opacities. LLL opacity. Subjective ROS Limited/Unobtainable: No Allergies: Coded Allergies: ASPIRIN (Verified Allergy, Unknown, 06/05/18) CEFTRIAXONE (Verified Allergy, Unknown, 06/06/18) hives HYDROCODONE (Verified Allergy, Unknown, 10/27/15) Objective Last 24 Hour Vital Signs Date Time Temp Pulse Resp B/P (MAP) Pulse Ox O2 Delivery O2 Flow Rate FiO2 06/08/18 08:23 84 160/91 06/08/18 08:00 98.0 84 20 160/91 (114) 96 06/08/18 04:00 73 06/08/18 04:00 98.5 84 20 151/87 (108) 96 06/08/18 00:00 98.0 77 20 138/76 (96) 94 06/08/18 00:00 101 06/07/18 21:00 Room Air 06/07/18 20:00 98.6 87 20 155/84 (107) 97 06/07/18 20:00 84 06/07/18 16:00 98.6 96 20 148/67 (94) 95 06/07/18 15:28 83 06/07/18 12:00 98.6 73 20 125/69 (87) 95 06/07/18 11:51 73 06/07/18 09:00 Room Air Intake and Output 06/07/18 06/08/18 18:59 06:59 Intake Total 1320 ml 825 ml Balance 1320 ml 825 ml Intake Oral 570 ml IV Total 750 ml 825 ml # Voids 2 # Bowel Movements 2 Microbiology Date/Time Source Procedure Growth Status 06/06/18 04:00 Nasopharynx Influenza Types A,B Antigen (MARTA) - Final Complete Laboratory Tests 06/08/18 07:30: Sodium Level 142, Potassium Level 4.0, Chloride Level 105, Carbon Dioxide Level 28, Anion Gap 9, Blood Urea Nitrogen 8, Creatinine 0.9, Estimat Glomerular Filtration Rate , Glucose Level 92, Calcium Level 10.0 Current Medications Medications (Trade) Dose Ordered Sig/[place] Route PRN Reason Start Time Stop Time Status Last Admin Dose Admin Acetaminophen (Tylenol) 650 mg Q4H PRN ORAL Mild Pain (Pain Scale 1-3) 06/05/18 16:30 07/05/18 16:14 Albuterol Sulfate (Proventil) 2.5 mg BIDPRN PRN HHN Shortness of Breath 06/05/18 16:31 06/10/18 16:30 Amlodipine Besylate (Norvasc) 10 mg DAILY ORAL 06/06/18 09:00 07/06/18 08:59 06/08/18 08:23 Atorvastatin Calcium (Lipitor) 10 mg BEDTIME ORAL 06/05/18 21:00 07/05/18 20:59 06/07/18 20:45 Dextrose (Dextrose 50%) 25 ml Q30M PRN IV Hypoglycemia 06/05/18 16:15 07/05/18 16:14 Dextrose (Dextrose 50%) 50 ml Q30M PRN IV Hypoglycemia 06/05/18 16:15 07/05/18 16:14 Diphenhydramine HCl (Benadryl) 25 mg Q6H PRN ORAL Itching/Pruritis 06/05/18 16:15 07/05/18 16:14 Enoxaparin Sodium (Lovenox) 40 mg Q24H SUBQ 06/06/18 09:00 07/06/18 08:59 06/08/18 08:25 Famotidine (Pepcid) 20 mg BID ORAL 06/06/18 09:00 07/06/18 08:59 06/08/18 08:24 Gabapentin (Neurontin) 800 mg QID ORAL 06/05/18 18:00 07/05/18 17:59 06/08/18 08:18 Hydromorphone HCl (Dilaudid) 1 mg Q12H PRN IVP Moderate Pain (Pain Scale 4-6) 06/05/18 17:07 06/12/18 17:06 Ipratropium [place] (Atrovent) 500 mcg BIDPRN PRN HHN Shortness of Breath 06/05/18 17:45 06/10/18 17:44 Levofloxacin 150 ml @ 150 mls/hr Q24H IVPB 06/05/18 20:00 06/12/18 19:59 06/07/18 20:48 Lorazepam (Ativan 2mg/ml 1ml) 0.5 mg Q4H PRN IV For Anxiety 06/05/18 16:15 06/12/18 16:14 Pantoprazole (Protonix) 40 mg DAILY ORAL 06/06/18 09:00 07/06/18 08:59 06/08/18 08:23 Prednisone (predniSONE) 40 mg DAILY ORAL 06/06/18 09:00 07/06/18 08:59 06/08/18 08:24 Sodium Chloride 1,000 ml @ 75 mls/hr [id number] IV 06/05/18 19:00 07/05/18 18:59 06/08/18 00:40 Tamsulosin HCl (Flomax) 0.4 mg BEDTIME ORAL 06/05/18 21:00 07/05/18 20:59 06/07/18 20:45 Zolpidem Tartrate (Ambien) 5 mg DAILYPRN PRN ORAL Insomnia 06/05/18 16:15 06/12/18 16:14 Sammy Ham MD Jun 08, 2018 08:31
[2018-06-08 09:15] LABS: BASOPHILS % (AUTO) 1.9 % (0.0-2.0); EOSINOPHILS % (AUTO) 0.2 % (0.0-3.0); HEMATOCRIT 35.7 % (42.0-52.0); HEMOGLOBIN 12.1 G/DL (14.2-18.0); LYMPHOCYTES % (AUTO) 22.9 % (20.0-45.0); MEAN CORPUSCULAR VOLUME 84 FL (80-99); MONOCYTES % (AUTO) 9.1 % (1.0-10.0); NEUTROPHILS % (AUTO) 65.9 % (45.0-75.0); PLATELET COUNT 367 K/UL (150-450); RED BLOOD COUNT 4.23 M/UL (4.70-6.10); RED CELL DISTRIBUTION WIDTH 13.4 % (11.6-14.8); WHITE BLOOD COUNT 14.1 K/UL (4.8-10.8)
[2018-06-08 12:00] VITALS: BP 138/72
--- NOTE | 2018-06-08 14:18 | Cardiology Report ---
APPROVED REPORT EKG Measurement Heart [id number] Normal sinus rhythm Normal ECG
[2018-06-08 16:00] VITALS: BP 137/75
--- NOTE | 2018-06-08 19:11 | Pulmonology Progress Note ---
Assessment/Plan Assessment/Plan Pulmonary Progress Note Chief Complaint: Dyspnea/Resp distress HPI This patient is accompanied by his family. There is concern that he has had shortness of breath. The patient himself states he was forced to be here. He states he feels fine. However, the patient has a family members are respiratory therapist and came to see him and was concerned about how his lungs sounded. He was diagnosed with pneumonia last month. Allergies: : ACETAMINOPHEN (Verified Allergy, Unknown, 10/27/15) HYDROCODONE (Verified Allergy, Unknown, 10/27/15) Past Medical History: see triage record, HTN, asthma, other - SCD Social History: Denies: smoking, alcohol use, drug use Reviewed Nursing Documentation: PMH: Agreed; PSxH: Agreed Past Medical History: No History, Except For Hx Cardiac Problems: No - HYPERCHOLESTEROLEMIA Hx Hypertension: Yes Hx Pacemaker: No - SICKLE CELL Hx Asthma: Yes Hx COPD: No - PNA Hx Cancer: No Hx Gastrointestinal Problems: Yes Hx Neurological Problems: No - RIGHT HIP SCIATICAL PAIN Hx Weakness: Yes - RIGHT LOWER EXT All Other Systems: negative except mentioned in HPI Physical Exam Vital Signs Noted Sp02 EP Interpretation: reviewed, normal General Appearance: no apparent distress, alert, GCS 15, non-toxic Head: normocephalic, atraumatic Eyes: bilateral eye normal inspection, bilateral eye PERRL ENT: hearing grossly normal, normal pharynx, no angioedema, normal voice Neck: full range of motion, supple/symm/no masses Respiratory: chest non-tender, lungs clear, normal breath sounds, no respiratory distress, no retraction, no accessory muscle use, speaking full sentences Cardiovascular #1: regular rate, rhythm, no edema Gastrointestinal: normal bowel sounds, non tender, soft, non-distended, no guarding, no rebound Rectal: deferred Musculoskeletal: back normal, gait/station normal, normal range of motion, non- tender Neurologic: alert, oriented x3, responsive, motor strength/tone normal, sensory intact, speech normal Psychiatric: judgement/insight normal, memory normal, mood/affect normal, no suicidal/homicidal ideation Skin: normal color, no rash, warm/dry, well hydrated Impression: Pneumonia CHF (congestive heart failure) SCD HTN Asthma Plan Antibiotics per ID PPX [facility] [employer] medications CT chest noted - chronic lower zone scarring Laboratory Tests Test 06/05/18 12:00 White Blood Count 10.4 K/UL (4.8-10.8) Red Blood Count 3.92 M/UL (4.70-6.10) L Hemoglobin 11.3 G/DL (14.2-18.0) L Hematocrit 33.2 % (42.0-52.0) L Mean Corpuscular Volume 85 FL (80-99) Mean Corpuscular Hemoglobin 28.8 PG (27.0-31.0) Mean Corpuscular Hemoglobin Concent 34.0 G/DL (32.0-36.0) Red Cell Distribution Width 13.5 % (11.6-14.8) Platelet Count 389 K/UL (150-450) Mean Platelet Volume 7.1 FL (6.5-10.1) Neutrophils (%) (Auto) 58.2 % (45.0-75.0) Lymphocytes (%) (Auto) 28.9 % (20.0-45.0) Monocytes (%) (Auto) 9.9 % (1.0-10.0) Eosinophils (%) (Auto) 0.9 % (0.0-3.0) Basophils (%) (Auto) 2.0 % (0.0-2.0) Prothrombin Time 10.5 SEC (9.30-11.50) Prothrombin Time INR 1.0 (0.9-1.1) PTT 27 SEC (23-33) Sodium Level 136 MMOL/L (136-145) Potassium Level 3.9 MMOL/L (3.5-5.1) Chloride Level 102 MMOL/L (98-107) Carbon Dioxide Level 28 MMOL/L (21-32) Anion Gap 6 mmol/L (5-15) Blood Urea Nitrogen 5 mg/dL (7-18) L Creatinine 0.9 MG/DL (0.55-1.30) Estimate Glomerular Filtration Rate mL/min (>60) Glucose Level 117 MG/DL (74-106) H Calcium Level 9.2 MG/DL (8.5-10.1) Total Bilirubin 1.4 MG/DL (0.2-1.0) H Direct Bilirubin 0.3 MG/DL (0.0-0.3) Aspartate Amino Transferase (AST) 28 U/L (15-37) Alanine Aminotransferase (ALT) 24 U/L (12-78) Alkaline Phosphatase 91 U/L (46-116) Total Creatine Kinase 131 U/L (26-308) Creatine Kinase MB 1.3 NG/ML (0.0-3.6) Creatine Kinase MB Relative Index 0.9 Troponin I 0.000 ng/mL (0.000-0.056) Total Protein 7.2 G/DL (6.4-8.2) Albumin 3.6 G/DL (3.4-5.0) Globulin 3.6 g/dL Albumin/Globulin Ratio 1.0 (1.0-2.7) EKG Diagnostic Results Rate: normal Rhythm: NSR ST Segments: no acute changes Rhythm Strip Diag. Results EP Interpretation: yes Rate: 70's Rhythm: NSR, no PVC's, no ectopy Chest X-Ray Diagnostic Results Chest X-Ray Diagnostic Results : Chest X-Ray Ordered: Yes # of Views/Limited/Complete: 1 View Indication: Shortness of Breath EP Interpretation: Yes Interpretation: no effusion, no pneumothorax, other - Diffuse patchy opacities. LLL opacity. Subjective ROS Limited/Unobtainable: No Allergies: Coded Allergies: ASPIRIN (Verified Allergy, Unknown, 06/05/18) CEFTRIAXONE (Verified Allergy, Unknown, 06/06/18) hives HYDROCODONE (Verified Allergy, Unknown, 10/27/15) Objective Last 24 Hour Vital Signs Date Time Temp Pulse Resp B/P (MAP) Pulse Ox O2 Delivery O2 Flow Rate FiO2 06/08/18 16:19 90 06/08/18 16:00 97.9 93 20 137/75 (95) 96 06/08/18 12:00 97.9 96 20 138/72 (94) 96 06/08/18 11:59 77 06/08/18 09:00 Room Air 06/08/18 08:23 84 160/91 06/08/18 08:00 74 06/08/18 08:00 98.0 84 20 160/91 (114) 96 06/08/18 04:00 73 06/08/18 04:00 98.5 84 20 151/87 (108) 96 06/08/18 00:00 98.0 77 20 138/76 (96) 94 06/08/18 00:00 101 06/07/18 21:00 Room Air 06/07/18 20:00 98.6 87 20 155/84 (107) 97 06/07/18 20:00 84 Intake and Output 06/07/18 06/08/18 19:00 07:00 Intake Total 1320 ml 825 ml Balance 1320 ml 825 ml Intake Oral 570 ml IV Total 750 ml 825 ml # Voids 2 # Bowel Movements 2 Microbiology Date/Time Source Procedure Growth Status 06/06/18 04:00 Nasopharynx Influenza Types A,B Antigen ([facility]) - Final Complete Laboratory Tests 06/08/18 07:30: Sodium Level 142, Potassium Level 4.0, Chloride Level 105, Carbon Dioxide Level 28, Anion Gap 9, Blood Urea Nitrogen 8, Creatinine 0.9, Estimat Glomerular Filtration Rate , Glucose Level 92, Calcium Level 10.0 06/08/18 08:30: White Blood Count 14.1H, Red Blood Count 4.23L, Hemoglobin 12.1L, Hematocrit 35.7L, Mean Corpuscular Volume 84, Mean Corpuscular Hemoglobin 28.7, Mean Corpuscular Hemoglobin Concent 33.9, Red Cell Distribution Width 13.4, Platelet Count 367, Mean Platelet Volume 6.4L, Neutrophils (%) (Auto) 65.9, Lymphocytes ( %) (Auto) 22.9, Monocytes (%) (Auto) 9.1, Eosinophils (%) (Auto) 0.2, Basophils (%) (Auto) 1.9 Current Medications Medications (Trade) Dose Ordered Sig/Meseret Route PRN Reason Start Time Stop Time Status Last Admin Dose Admin Acetaminophen (Tylenol) 650 mg Q4H PRN ORAL Mild Pain (Pain Scale 1-3) 06/05/18 16:30 07/05/18 16:14 Albuterol Sulfate (Proventil) 2.5 mg BIDPRN PRN HHN Shortness of Breath 06/05/18 16:31 06/10/18 16:30 Amlodipine Besylate (Norvasc) 10 mg DAILY ORAL 06/06/18 09:00 07/06/18 08:59 06/08/18 08:23 Atorvastatin Calcium (Lipitor) 10 mg BEDTIME ORAL 06/05/18 21:00 07/05/18 20:59 06/07/18 20:45 Dextrose (Dextrose 50%) 25 ml Q30M PRN IV Hypoglycemia 06/05/18 16:15 07/05/18 16:14 Dextrose (Dextrose 50%) 50 ml Q30M PRN IV Hypoglycemia 06/05/18 16:15 07/05/18 16:14 Diphenhydramine HCl (Benadryl) 25 mg Q6H PRN ORAL Itching/Pruritis 06/05/18 16:15 07/05/18 16:14 Enoxaparin Sodium (Lovenox) 40 mg Q24H SUBQ 06/06/18 09:00 07/06/18 08:59 06/08/18 08:25 Famotidine (Pepcid) 20 mg BID ORAL 06/06/18 09:00 07/06/18 08:59 06/08/18 17:13 Gabapentin (Neurontin) 800 mg QID ORAL 06/05/18 18:00 07/05/18 17:59 06/08/18 17:13 Hydromorphone HCl (Dilaudid) 1 mg Q12H PRN IVP Moderate Pain (Pain Scale 4-6) 06/05/18 17:07 06/12/18 17:06 Ipratropium [place] (Atrovent) 500 mcg BIDPRN PRN HHN Shortness of Breath 06/05/18 17:45 06/10/18 17:44 Levofloxacin 150 ml @ 150 mls/hr Q24H IVPB 06/05/18 20:00 06/12/18 19:59 06/07/18 20:48 Lorazepam (Ativan 2mg/ml 1ml) 0.5 mg Q4H PRN IV For Anxiety 06/05/18 16:15 06/12/18 16:14 Pantoprazole (Protonix) 40 mg DAILY ORAL 06/06/18 09:00 07/06/18 08:59 06/08/18 08:23 Prednisone (predniSONE) 40 mg DAILY ORAL 06/06/18 09:00 07/06/18 08:59 06/08/18 08:24 Sodium Chloride 1,000 ml @ 75 mls/hr [id number] IV 06/05/18 19:00 07/05/18 18:59 06/08/18 12:49 Tamsulosin HCl (Flomax) 0.4 mg BEDTIME ORAL 06/05/18 21:00 07/05/18 20:59 06/07/18 20:45 Zolpidem Tartrate (Ambien) 5 mg DAILYPRN PRN ORAL Insomnia 06/05/18 16:15 06/12/18 16:14 Sammy Ham MD Jun 08, 2018 19:11
[2018-06-08 20:00] VITALS: BP 136/74
[2018-06-08] MEDS: Tamsulosin 0.4mg cap ORAL SCH (20:14)
[2018-06-09] VITALS: BP 132/75
[2018-06-09] MEDS: NS w/KCl 20mEq 1,000 ML IV SCH (03:41)
[2018-06-09 04:00] VITALS: BP 148/80
[2018-06-09 07:21] LABS: BASOPHILS % (AUTO) 1.3 % (0.0-2.0); EOSINOPHILS % (AUTO) 0.2 % (0.0-3.0); HEMATOCRIT 36.5 % (42.0-52.0); HEMOGLOBIN 12.2 G/DL (14.2-18.0); LYMPHOCYTES % (AUTO) 27.8 % (20.0-45.0); MEAN CORPUSCULAR VOLUME 85 FL (80-99); MONOCYTES % (AUTO) 10.2 % (1.0-10.0); NEUTROPHILS % (AUTO) 60.5 % (45.0-75.0); PLATELET COUNT 369 K/UL (150-450); RED BLOOD COUNT 4.31 M/UL (4.70-6.10); RED CELL DISTRIBUTION WIDTH 13.5 % (11.6-14.8); WHITE BLOOD COUNT 13.5 K/UL (4.8-10.8)
[2018-06-09 07:25] LABS: ANION GAP 8 mmol/L (5-15); BLOOD UREA NITROGEN 9 mg/dL (7-18); CALCIUM 9.5 MG/DL (8.5-10.1); CARBON DIOXIDE 27 MMOL/L (21-32); CHLORIDE 107 MMOL/L (98-107); CREATININE 0.8 MG/DL (0.55-1.30); POTASSIUM 3.6 MMOL/L (3.5-5.1); SODIUM 142 MMOL/L (136-145)
[2018-06-09 08:00] VITALS: BP 125/84
[2018-06-09] MEDS: Enoxaparin 40mg Inj SUBQ SCH (08:29)
--- NOTE | 2018-06-09 08:36 | General Progress Note ---
Assessment/Plan Problem List: (1) CHF (congestive heart failure) ICD Codes: I50.9 - Heart failure, unspecified SNOMED: 65082259 (2) Sepsis ICD Codes: A41.9 - Sepsis, unspecified organism SNOMED: 26624669 (3) Leukocytosis ICD Codes: D72.829 - Elevated white blood cell count, unspecified SNOMED: 794907219, 920012823 (4) Sickle cell disease ICD Codes: D57.1 - Sickle cell disease SNOMED: 587776374 (5) Anemia ICD Codes: D64.9 - Anemia SNOMED: 156495428 Status: stable, progressing Assessment/Plan o2 pulm tx abx cbc bmp am dc w hh if clear Subjective Constitutional: Reports: weakness Respiratory: Reports: shortness of breath Allergies: Coded Allergies: ASPIRIN (Verified Allergy, Unknown, 06/05/18) CEFTRIAXONE (Verified Allergy, Unknown, 06/06/18) hives HYDROCODONE (Verified Allergy, Unknown, 10/27/15) All Systems: reviewed and negative except above Subjective calm sitting in bed Objective Last 24 Hour Vital Signs Date Time Temp Pulse Resp B/P (MAP) Pulse Ox O2 Delivery O2 Flow Rate FiO2 06/09/18 08:28 75 125/84 06/09/18 08:00 96.8 75 18 125/84 (98) 96 06/09/18 04:00 98.3 71 18 148/80 (102) 95 06/09/18 04:00 99 06/09/18 00:00 98.5 71 25 132/75 (94) 95 06/09/18 00:00 71 06/08/18 23:54 97 Room Air 21 06/08/18 23:54 75 20 Room Air 21 06/08/18 21:00 Room Air 06/08/18 20:00 80 06/08/18 20:00 98.2 80 20 136/74 (94) 97 06/08/18 16:19 90 06/08/18 16:00 97.9 93 20 137/75 (95) 96 06/08/18 12:00 97.9 96 20 138/72 (94) 96 06/08/18 11:59 77 06/08/18 09:00 Room Air Intake and Output 06/08/18 06/09/18 18:59 06:59 Intake Total 1025 ml 755 ml Output Total 800 ml Balance 1025 ml -45 ml Intake Oral 650 ml IV Total 375 ml 755 ml Output Urine Total 800 ml # Voids 2 Laboratory Tests 06/09/18 06:05: White Blood Count 13.5H, Red Blood Count 4.31L, Hemoglobin 12.2L, Hematocrit 36.5L, Mean Corpuscular Volume 85, Mean Corpuscular Hemoglobin 28.2, Mean Corpuscular Hemoglobin Concent 33.4, Red Cell Distribution Width 13.5, Platelet Count 369, Mean Platelet Volume 6.7, Neutrophils (%) (Auto) 60.5, Lymphocytes (% ) (Auto) 27.8, Monocytes (%) (Auto) 10.2H, Eosinophils (%) (Auto) 0.2, Basophils (%) (Auto) 1.3, Sodium Level 142, Potassium Level 3.6, Chloride Level 107, Carbon Dioxide Level 27, Anion Gap 8, Blood Urea Nitrogen 9, Creatinine 0.8 , Estimat Glomerular Filtration Rate , Glucose Level 89, Calcium Level 9.5 Height (Feet): 6 Height (Inches): 1.00 Weight (Pounds): 228 General Appearance: alert EENT: normal ENT inspection Neck: normal alignment Cardiovascular: normal peripheral pulses, normal rate, regular rhythm Respiratory/Chest: chest wall non-tender, lungs clear, normal breath sounds Abdomen: normal bowel sounds, non tender, soft Extremities: normal inspection Edema: no edema noted Arm (L), no edema noted Arm (R), no edema noted Leg (L), no edema noted Leg (R), no edema noted Pedal (L), no edema noted Pedal (R), no edema noted Generalized Neurologic: responsive, motor weakness Skin: normal pigmentation, warm/dry Alen Goldman DO Jun 09, 2018 08:36
--- NOTE | 2018-06-09 09:05 | Infectious Diseases Prog Note ---
Assessment/Plan Assessment/Plan Assessment: SOB- 2ry to bronchitis; improving -CT chest: No acute abnormality. Minimal chronic scarring within the lungs bilaterally. 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 Prominence of the interstitium and pulmonary vascular markings possibly artifactual. Correlate clinically to exclude mild congestion/CHF. Streaky left basilar likely subsegmental atelectasis. -sp cx normal resp haseeb to date Afebrile Leukocytosis (on steroids); improving REcent PNA 04/2017 (LLL) -s/p 7 days Cefepime and zithromax hx Bl vascular necrosis hips Sciatica pain hyperlipidemia History of sickle cell disease Hiatal hernia. HTN Asthma Cefriaxone reaction in the ED- hives Plan: -Continue empiric PO Levaquin #5/5 for bronchitis -Ok to discharge home -06/05 SP Ceftriaxone x1 -f/u cx -Monitor CBC/CMP, temperatures -aspiration precautions Thank you for this consultation. Will continue to follow along with you. Discussed with RN. Subjective Allergies: Coded Allergies: ASPIRIN (Verified Allergy, Unknown, 06/05/18) CEFTRIAXONE (Verified Allergy, Unknown, 06/06/18) hives HYDROCODONE (Verified Allergy, Unknown, 10/27/15) Subjective afebrile wbc increased (on steroids); improved Objective Vital Signs Last 24 Hour Vital Signs Date Time Temp Pulse Resp B/P (MAP) Pulse Ox O2 Delivery O2 Flow Rate FiO2 06/09/18 08:28 75 125/84 06/09/18 08:00 96.8 75 18 125/84 (98) 96 06/09/18 04:00 98.3 71 18 148/80 (102) 95 06/09/18 04:00 99 06/09/18 00:00 98.5 71 25 132/75 (94) 95 06/09/18 00:00 71 06/08/18 23:54 97 Room Air 21 06/08/18 23:54 75 20 Room Air 21 06/08/18 21:00 Room Air 06/08/18 20:00 80 06/08/18 20:00 98.2 80 20 136/74 (94) 97 06/08/18 16:19 90 06/08/18 16:00 97.9 93 20 137/75 (95) 96 06/08/18 12:00 97.9 96 20 138/72 (94) 96 06/08/18 11:59 77 Height (Feet): 6 Height (Inches): 1.00 Weight (Pounds): 228 Objective General Appearance: no apparent distress, alert, GCS 15 HEENT: normocephalic, atraumatic, bilateral eye PERRL normal pharynx, Neck: full range of motion, supple/symm/no masses Respiratory: chest non-tender, lungs clear, normal breath sounds, no respiratory distress, no retraction, no accessory muscle use, speaking full sentences Cardiovascular regular rate, rhythm, no edema Gastrointestinal: normal bowel sounds, non tender, soft, non-distended, no guarding, no rebound Musculoskeletal: back normal, gait/station normal, normal range of motion, non- tender Skin: normal color, no rash, warm/dry, well hydrated Laboratory Tests Test 06/09/18 06:05 White Blood Count 13.5 K/UL (4.8-10.8) H Red Blood Count 4.31 M/UL (4.70-6.10) L Hemoglobin 12.2 G/DL (14.2-18.0) L Hematocrit 36.5 % (42.0-52.0) L Mean Corpuscular Volume 85 FL (80-99) Mean Corpuscular Hemoglobin 28.2 PG (27.0-31.0) Mean Corpuscular Hemoglobin Concent 33.4 G/DL (32.0-36.0) Red Cell Distribution Width 13.5 % (11.6-14.8) Platelet Count 369 K/UL (150-450) Mean Platelet Volume 6.7 FL (6.5-10.1) Neutrophils (%) (Auto) 60.5 % (45.0-75.0) Lymphocytes (%) (Auto) 27.8 % (20.0-45.0) Monocytes (%) (Auto) 10.2 % (1.0-10.0) H Eosinophils (%) (Auto) 0.2 % (0.0-3.0) Basophils (%) (Auto) 1.3 % (0.0-2.0) Sodium Level 142 MMOL/L (136-145) Potassium Level 3.6 MMOL/L (3.5-5.1) Chloride Level 107 MMOL/L (98-107) Carbon Dioxide Level 27 MMOL/L (21-32) Anion Gap 8 mmol/L (5-15) Blood Urea Nitrogen 9 mg/dL (7-18) Creatinine 0.8 MG/DL (0.55-1.30) Estimat Glomerular Filtration Rate mL/min (>60) Glucose Level 89 MG/DL (74-106) Calcium Level 9.5 MG/DL (8.5-10.1) Current Medications Medications (Trade) Dose Ordered Sig/[place]ese[place] Route PRN Reason Start Time Stop Time Status Last Admin Dose Admin Acetaminophen (Tylenol) 650 mg Q4H PRN ORAL Mild Pain (Pain Scale 1-3) 06/05/18 16:30 07/05/18 16:14 Albuterol Sulfate (Proventil) 2.5 mg BIDPRN PRN HHN Shortness of Breath 06/05/18 16:31 06/10/18 16:30 Amlodipine Besylate (Norvasc) 10 mg DAILY ORAL 06/06/18 09:00 07/06/18 08:59 06/09/18 08:28 Atorvastatin Calcium (Lipitor) 10 mg BEDTIME ORAL 06/05/18 21:00 07/05/18 20:59 06/08/18 20:14 Dextrose (Dextrose 50%) 25 ml Q30M PRN IV Hypoglycemia 06/05/18 16:15 07/05/18 16:14 Dextrose (Dextrose 50%) 50 ml Q30M PRN IV Hypoglycemia 06/05/18 16:15 07/05/18 16:14 Diphenhydramine HCl (Benadryl) 25 mg Q6H PRN ORAL Itching/Pruritis 06/05/18 16:15 07/05/18 16:14 Enoxaparin Sodium (Lovenox) 40 mg Q24H SUBQ 06/06/18 09:00 07/06/18 08:59 06/09/18 08:29 Famotidine (Pepcid) 20 mg BID ORAL 06/06/18 09:00 07/06/18 08:59 06/09/18 08:27 Gabapentin (Neurontin) 800 mg QID ORAL 06/05/18 18:00 07/05/18 17:59 06/09/18 08:27 Hydromorphone HCl (Dilaudid) 1 mg Q12H PRN IVP Moderate Pain (Pain Scale 4-6) 06/05/18 17:07 06/12/18 17:06 Ipratropium [place] (Atrovent) 500 mcg BIDPRN PRN HHN Shortness of Breath 06/05/18 17:45 06/10/18 17:44 Levofloxacin 150 ml @ 150 mls/hr Q24H IVPB 06/05/18 20:00 06/12/18 19:59 06/08/18 20:15 Lorazepam (Ativan 2mg/ml 1ml) 0.5 mg Q4H PRN IV For Anxiety 06/05/18 16:15 06/12/18 16:14 Pantoprazole (Protonix) 40 mg DAILY ORAL 06/06/18 09:00 07/06/18 08:59 06/09/18 08:27 Prednisone (predniSONE) 40 mg DAILY ORAL 06/06/18 09:00 07/06/18 08:59 06/09/18 08:28 Sodium Chloride 1,000 ml @ 75 mls/hr [id number] IV 06/05/18 19:00 07/05/18 18:59 06/09/18 03:41 Tamsulosin HCl (Flomax) 0.4 mg BEDTIME ORAL 06/05/18 21:00 07/05/18 20:59 06/08/18 20:14 Zolpidem Tartrate (Ambien) 5 mg DAILYPRN PRN ORAL Insomnia 06/05/18 16:15 06/12/18 16:14 Alivia Suggs M.D. Jun 09, 2018 09:05
--- NOTE | 2018-06-09 09:44 | General Progress Note ---
Assessment/Plan Assessment/Plan # Leukocytosis. 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 # Left lower lobe opacity. # Pneumonia. ID is following, appreciate recs. --> O2 and pulmonary treatment. --> Antibiotics per Infectious Disease. # Sepsis. # Chronic lung scarring GREATLY APPRECIATE CONSULTATION. Subjective Constitutional: Denies: no symptoms, chills, diaphoresis, fever, malaise, weakness, other HEENT: Denies: no symptoms, eye pain, blurred vision, tearing, double vision, ear pain, ear discharge, nose pain, nose congestion, throat pain, throat swelling, mouth pain, mouth swelling, other Cardiovascular: Denies: no symptoms, chest pain, edema, irregular heart rate, lightheadedness, palpitations, syncope, other Respiratory: Denies: no symptoms, cough, orthopnea, shortness of breath, SOB with excertion, SOB at rest, sputum, stridor, wheezing, other Gastrointestinal/Abdominal: Denies: no symptoms, abdomen distended, abdominal pain, black stools, tarry stools, blood in stool, constipated, diarrhea, difficulty swallowing, nausea, poor appetite, poor fluid intake, rectal bleeding , vomiting, other Genitourinary: Denies: no symptoms, burning, discharge, frequency, flank pain, hematuria, incontinence, pain, urgency, other Neurologic/Psychiatric: Denies: no symptoms, anxiety, depressed, emotional problems, headache, numbness, paresthesia, pre-existing deficit, seizure, tingling, tremors, weakness, other Endocrine: Denies: no symptoms, excessive sweating, flushing, intolerance to cold, intolerance to heat, increased hunger, increased thirst, increased urine, unexplained weight gain, unexplained weight loss, other Hematologic/Lymphatic: Denies: no symptoms, anemia, easy bleeding, easy bruising, other Allergies: Coded Allergies: ASPIRIN (Verified Allergy, Unknown, 06/05/18) CEFTRIAXONE (Verified Allergy, Unknown, 06/06/18) hives HYDROCODONE (Verified Allergy, Unknown, 10/27/15) Subjective Pt awake and alert, in stable condition. No acute events. VS stable. Objective Last 24 Hour Vital Signs Date Time Temp Pulse Resp B/P (MAP) Pulse Ox O2 Delivery O2 Flow Rate FiO2 06/09/18 09:00 Room Air 06/09/18 08:28 75 125/84 06/09/18 08:00 83 06/09/18 08:00 96.8 75 18 125/84 (98) 96 06/09/18 04:00 98.3 71 18 148/80 (102) 95 06/09/18 04:00 99 06/09/18 00:00 98.5 71 25 132/75 (94) 95 06/09/18 00:00 71 06/08/18 23:54 97 Room Air 21 06/08/18 23:54 75 20 Room Air 21 06/08/18 21:00 Room Air 06/08/18 20:00 80 06/08/18 20:00 98.2 80 20 136/74 (94) 97 06/08/18 16:19 90 06/08/18 16:00 97.9 93 20 137/75 (95) 96 06/08/18 12:00 97.9 96 20 138/72 (94) 96 06/08/18 11:59 77 Intake and Output 06/08/18 06/09/18 19:00 07:00 Intake Total 1025 ml 755 ml Output Total 800 ml Balance 1025 ml -45 ml Intake Oral 650 ml IV Total 375 ml 755 ml Output Urine Total 800 ml # Voids 2 Laboratory Tests 06/09/18 06:05: White Blood Count 13.5H, Red Blood Count 4.31L, Hemoglobin 12.2L, Hematocrit 36.5L, Mean Corpuscular Volume 85, Mean Corpuscular Hemoglobin 28.2, Mean Corpuscular Hemoglobin Concent 33.4, Red Cell Distribution Width 13.5, Platelet Count 369, Mean Platelet Volume 6.7, Neutrophils (%) (Auto) 60.5, Lymphocytes (% ) (Auto) 27.8, Monocytes (%) (Auto) 10.2H, Eosinophils (%) (Auto) 0.2, Basophils (%) (Auto) 1.3, Sodium Level 142, Potassium Level 3.6, Chloride Level 107, Carbon Dioxide Level 27, Anion Gap 8, Blood Urea Nitrogen 9, Creatinine 0.8 , Estimat Glomerular Filtration Rate , Glucose Level 89, Calcium Level 9.5 Height (Feet): 6 Height (Inches): 1.00 Weight (Pounds): 228 General Appearance: no apparent distress EENT: normal ENT inspection Neck: normal alignment Cardiovascular: normal rate Respiratory/Chest: lungs clear Abdomen: non tender Extremities: non-tender Edema: 1+ Leg (L), 1+ Leg (R) Edema: mild edema Neurologic: alert Skin: warm/dry Objective PHYSICAL EXAMINATION: GENERAL: Calm in bed, slight short of breath, oriented x3, and in no acute distress. VITAL SIGNS: Have been reviewed CARDIOVASCULAR: No murmurs. LUNGS: Poor air exchange. ABDOMEN: Bowel sounds distant. EXTREMITIES: No cyanosis, clubbing, or edema. NEURO: The patient moving all extremities Rodri William MD Jun 09, 2018 09:44
[2018-06-09 12:00] VITALS: BP 147/80
[2018-06-09] MEDS ORDERED: TAMSULOSIN HCL0.4 MG ORAL (14:13)
--- NOTE | 2018-06-09 15:02 | Pulmonology Progress Note ---
Assessment/Plan Assessment/Plan Pulmonary Progress Note Chief Complaint: Dyspnea/Resp distress HPI This patient is accompanied by his family. There is concern that he has had shortness of breath. The patient himself states he was forced to be here. He states he feels fine. However, the patient has a family members are respiratory therapist and came to see him and was concerned about how his lungs sounded. He was diagnosed with pneumonia last month. Allergies: : ACETAMINOPHEN (Verified Allergy, Unknown, 10/27/15) HYDROCODONE (Verified Allergy, Unknown, 10/27/15) Past Medical History: see triage record, HTN, asthma, other - SCD Social History: Denies: smoking, alcohol use, drug use Reviewed Nursing Documentation: PMH: Agreed; PSxH: Agreed Past Medical History: No History, Except For Hx Cardiac Problems: No - HYPERCHOLESTEROLEMIA Hx Hypertension: Yes Hx Pacemaker: No - SICKLE CELL Hx Asthma: Yes Hx COPD: No - PNA Hx Cancer: No Hx Gastrointestinal Problems: Yes Hx Neurological Problems: No - RIGHT HIP SCIATICAL PAIN Hx Weakness: Yes - RIGHT LOWER EXT All Other Systems: negative except mentioned in HPI Physical Exam Vital Signs Noted Sp02 EP Interpretation: reviewed, normal General Appearance: no apparent distress, alert, GCS 15, non-toxic Head: normocephalic, atraumatic Eyes: bilateral eye normal inspection, bilateral eye PERRL ENT: hearing grossly normal, normal pharynx, no angioedema, normal voice Neck: full range of motion, supple/symm/no masses Respiratory: chest non-tender, lungs clear, normal breath sounds, no respiratory distress, no retraction, no accessory muscle use, speaking full sentences Cardiovascular #1: regular rate, rhythm, no edema Gastrointestinal: normal bowel sounds, non tender, soft, non-distended, no guarding, no rebound Rectal: deferred Musculoskeletal: back normal, gait/station normal, normal range of motion, non- tender Neurologic: alert, oriented x3, responsive, motor strength/tone normal, sensory intact, speech normal Psychiatric: judgement/insight normal, memory normal, mood/affect normal, no suicidal/homicidal ideation Skin: normal color, no rash, warm/dry, well hydrated Impression: Pneumonia CHF (congestive heart failure) SCD HTN Asthma Plan Antibiotics per ID PPX HHN HORN PLAYER medications CT chest noted - chronic lower zone scarring Laboratory Tests Test 06/05/18 12:00 White Blood Count 10.4 K/UL (4.8-10.8) Red Blood Count 3.92 M/UL (4.70-6.10) L Hemoglobin 11.3 G/DL (14.2-18.0) L Hematocrit 33.2 % (42.0-52.0) L Mean Corpuscular Volume 85 FL (80-99) Mean Corpuscular Hemoglobin 28.8 PG (27.0-31.0) Mean Corpuscular Hemoglobin Concent 34.0 G/DL (32.0-36.0) Red Cell Distribution Width 13.5 % (11.6-14.8) Platelet Count 389 K/UL (150-450) Mean Platelet Volume 7.1 FL (6.5-10.1) Neutrophils (%) (Auto) 58.2 % (45.0-75.0) Lymphocytes (%) (Auto) 28.9 % (20.0-45.0) Monocytes (%) (Auto) 9.9 % (1.0-10.0) Eosinophils (%) (Auto) 0.9 % (0.0-3.0) Basophils (%) (Auto) 2.0 % (0.0-2.0) Prothrombin Time 10.5 SEC (9.30-11.50) Prothrombin Time INR 1.0 (0.9-1.1) PTT 27 SEC (23-33) Sodium Level 136 MMOL/L (136-145) Potassium Level 3.9 MMOL/L (3.5-5.1) Chloride Level 102 MMOL/L (98-107) Carbon Dioxide Level 28 MMOL/L (21-32) Anion Gap 6 mmol/L (5-15) Blood Urea Nitrogen 5 mg/dL (7-18) L Creatinine 0.9 MG/DL (0.55-1.30) Estimate Glomerular Filtration Rate mL/min (>60) Glucose Level 117 MG/DL (74-106) H Calcium Level 9.2 MG/DL (8.5-10.1) Total Bilirubin 1.4 MG/DL (0.2-1.0) H Direct Bilirubin 0.3 MG/DL (0.0-0.3) Aspartate Amino Transferase (AST) 28 U/L (15-37) Alanine Aminotransferase (ALT) 24 U/L (12-78) Alkaline Phosphatase 91 U/L (46-116) Total Creatine Kinase 131 U/L (26-308) Creatine Kinase MB 1.3 NG/ML (0.0-3.6) Creatine Kinase MB Relative Index 0.9 Troponin I 0.000 ng/mL (0.000-0.056) Total Protein 7.2 G/DL (6.4-8.2) Albumin 3.6 G/DL (3.4-5.0) Globulin 3.6 g/dL Albumin/Globulin Ratio 1.0 (1.0-2.7) EKG Diagnostic Results Rate: normal Rhythm: NSR ST Segments: no acute changes Rhythm Strip Diag. Results EP Interpretation: yes Rate: 70's Rhythm: NSR, no PVC's, no ectopy Chest X-Ray Diagnostic Results Chest X-Ray Diagnostic Results : Chest X-Ray Ordered: Yes # of Views/Limited/Complete: 1 View Indication: Shortness of Breath EP Interpretation: Yes Interpretation: no effusion, no pneumothorax, other - Diffuse patchy opacities. LLL opacity. Subjective ROS Limited/Unobtainable: No Allergies: Coded Allergies: ASPIRIN (Verified Allergy, Unknown, 06/05/18) CEFTRIAXONE (Verified Allergy, Unknown, 06/06/18) hives HYDROCODONE (Verified Allergy, Unknown, 10/27/15) Objective Last 24 Hour Vital Signs Date Time Temp Pulse Resp B/P (MAP) Pulse Ox O2 Delivery O2 Flow Rate FiO2 06/09/18 12:00 97.3 79 20 147/80 (102) 94 06/09/18 09:00 Room Air 06/09/18 08:28 75 125/84 06/09/18 08:00 83 06/09/18 08:00 96.8 75 18 125/84 (98) 96 06/09/18 04:00 98.3 71 18 148/80 (102) 95 06/09/18 04:00 99 06/09/18 00:00 98.5 71 25 132/75 (94) 95 06/09/18 00:00 71 06/08/18 23:54 97 Room Air 21 06/08/18 23:54 75 20 Room Air 21 06/08/18 21:00 Room Air 06/08/18 20:00 80 06/08/18 20:00 98.2 80 20 136/74 (94) 97 06/08/18 16:19 90 06/08/18 16:00 97.9 93 20 137/75 (95) 96 Intake and Output 06/08/18 06/09/18 18:59 06:59 Intake Total 1025 ml 755 ml Output Total 800 ml Balance 1025 ml -45 ml Intake Oral 650 ml IV Total 375 ml 755 ml Output Urine Total 800 ml # Voids 2 Laboratory Tests 06/09/18 06:05: White Blood Count 13.5H, Red Blood Count 4.31L, Hemoglobin 12.2L, Hematocrit 36.5L, Mean Corpuscular Volume 85, Mean Corpuscular Hemoglobin 28.2, Mean Corpuscular Hemoglobin Concent 33.4, Red Cell Distribution Width 13.5, Platelet Count 369, Mean Platelet Volume 6.7, Neutrophils (%) (Auto) 60.5, Lymphocytes (% ) (Auto) 27.8, Monocytes (%) (Auto) 10.2H, Eosinophils (%) (Auto) 0.2, Basophils (%) (Auto) 1.3, Sodium Level 142, Potassium Level 3.6, Chloride Level 107, Carbon Dioxide Level 27, Anion Gap 8, Blood Urea Nitrogen 9, Creatinine 0.8 , Estimat Glomerular Filtration Rate , Glucose Level 89, Calcium Level 9.5 Current Medications Medications (Trade) Dose Ordered Sig/[place] Route PRN Reason Start Time Stop Time Status Last Admin Dose Admin Acetaminophen (Tylenol) 650 mg Q4H PRN ORAL Mild Pain (Pain Scale 1-3) 06/05/18 16:30 07/05/18 16:14 Albuterol Sulfate (Proventil) 2.5 mg BIDPRN PRN HHN Shortness of Breath 06/05/18 16:31 06/10/18 16:30 Amlodipine Besylate (Norvasc) 10 mg DAILY ORAL 06/06/18 09:00 07/06/18 08:59 06/09/18 08:28 Atorvastatin Calcium (Lipitor) 10 mg BEDTIME ORAL 06/05/18 21:00 07/05/18 20:59 06/08/18 20:14 Dextrose (Dextrose 50%) 25 ml Q30M PRN IV Hypoglycemia 06/05/18 16:15 07/05/18 16:14 Dextrose (Dextrose 50%) 50 ml Q30M PRN IV Hypoglycemia 06/05/18 16:15 07/05/18 16:14 Diphenhydramine HCl (Benadryl) 25 mg Q6H PRN ORAL Itching/Pruritis 06/05/18 16:15 07/05/18 16:14 Enoxaparin Sodium (Lovenox) 40 mg Q24H SUBQ 06/06/18 09:00 07/06/18 08:59 06/09/18 08:29 Famotidine (Pepcid) 20 mg BID ORAL 06/06/18 09:00 07/06/18 08:59 06/09/18 08:27 Gabapentin (Neurontin) 800 mg QID ORAL 06/05/18 18:00 07/05/18 17:59 06/09/18 13:33 Hydromorphone HCl (Dilaudid) 1 mg Q12H PRN IVP Moderate Pain (Pain Scale 4-6) 06/05/18 17:07 06/12/18 17:06 Ipratropium [place] (Atrovent) 500 mcg BIDPRN PRN HHN Shortness of Breath 06/05/18 17:45 06/10/18 17:44 Levofloxacin 150 ml @ 150 mls/hr Q24H IVPB 06/05/18 20:00 06/12/18 19:59 06/08/18 20:15 Lorazepam (Ativan 2mg/ml 1ml) 0.5 mg Q4H PRN IV For Anxiety 06/05/18 16:15 06/12/18 16:14 Pantoprazole (Protonix) 40 mg DAILY ORAL 06/06/18 09:00 07/06/18 08:59 06/09/18 08:27 Prednisone (predniSONE) 40 mg DAILY ORAL 06/06/18 09:00 07/06/18 08:59 06/09/18 08:28 Sodium Chloride 1,000 ml @ 75 mls/hr [id number] IV 06/05/18 19:00 07/05/18 18:59 06/09/18 03:41 Tamsulosin HCl (Flomax) 0.4 mg BEDTIME ORAL 06/05/18 21:00 07/05/18 20:59 06/08/18 20:14 Zolpidem Tartrate (Ambien) 5 mg DAILYPRN PRN ORAL Insomnia 06/05/18 16:15 06/12/18 16:14 Sammy Ham MD Jun 09, 2018 15:02
--- NOTE | 2018-06-09 23:45 | Progress Note ---
CARDIOLOGY PROGRESS NOTE SUBJECTIVE: The patient was seen and examined with daughter at bedside. Discharge plan is discussed. The patient has no cough or congestion at this time. He denies shortness of breath. He is ambulatory ____ as he was at his prior baseline. OBJECTIVE: VITAL SIGNS: Blood pressure 125/84, pulse 75, respiratory rate 18, and room air oxygen saturation 96%. LUNGS: Coarse breath sounds. No wheezing. CARDIAC: Regular rhythm and rate. Normal S1 and S2. A 1/6 systolic murmur at lower left sternal border. ABDOMEN: Soft and nontender. EXTREMITIES: No edema. Good distal pulses. NEUROLOGIC: Nonfocal. IMPRESSION: 1. Hypertension with compensated diastolic congestive heart failure. No signs of acute decompensation. No evidence of pulmonary hypertension by echocardiogram. 2. History of sickle cell disease, stable baseline blood count. 3. Status post acute bronchitis with bronchospasm recovering. PLAN OF CARE: 1. Maintain current cardiovascular regimen. 2. Discussed salt restrict. 3. Outpatient followup. Sammy Garcia M.D. DR: CYNDEE JOB#: [id number] CC:
--- NOTE | 2018-06-09 23:45 | Progress Note ---
DATE: 06/08/2018 CARDIOLOGY PROGRESS NOTE SUBJECTIVE: The patient is less congested. He is able to ambulate without much difficulty. OBJECTIVE: VITAL SIGNS: Blood pressure 125/84, pulse 75, and respiratory rate 18. LUNGS: Few rhonchi. Diminished breath sounds. CARDIAC: Regular rhythm and rate. Normal S1 and S2. A 1/6 systolic murmur in the lower left sternal border. ABDOMEN: Soft and nontender. EXTREMITIES: No edema. IMPRESSION: 1. Acute bronchitis. 2. Paroxysmal bronchospasm. 3. Chronic diastolic congestive heart failure. 4. Hypertensive heart disease. 5. Sickle cell disease. 6. No signs of pulmonary hypertension. PLAN: 1. Maintain current cardiovascular regimen. 2. Salt restrict. 3. Continue bronchodilators and respiratory hygiene. 4. DVT prophylaxis until mobility increased. Sammy Garcia M.D. DR: MORGAN JOB#: [id number] CC:
--- NOTE | 2018-06-10 02:30 | Consultation ---
DATE OF CONSULTATION: 06/09/2018 CARDIOLOGY CONSULTATION CONSULTING PHYSICIAN: Sammy Garcia M.D. REFERRING PHYSICIAN: Alen Goldman D.O. REASON FOR EVALUATION: Congestive heart failure. HISTORY OF PRESENT ILLNESS: This is an 82-year-old male, who presented to the hospital two days ago with shortness of breath. He said he could manage at home, but family members disagreed and brought him for evaluation and treatment. He apparently has had increasing congestion and had pneumonia about a month ago, although improved ____ worsened now. He has not noted any chest pain or leg swelling. PAST MEDICAL HISTORY: 1. Hyperlipidemia. 2. Sickle cell trait. 3. History of pneumonia. 4. History of right hip osteoarthritis. 5. History of hydrocele. ALLERGIES: Ceftriaxone, hydrocodone, and aspirin. SOCIAL HISTORY: Negative for smoking, alcohol, or substance abuse. FAMILY HISTORY: Noncontributory. REVIEW OF SYSTEMS: Otherwise notable for echocardiogram revealing normal ejection fraction of 50% to 55%. No pulmonary hypertension and minimal tricuspid regurgitation. Otherwise unremarkable. PHYSICAL EXAMINATION: GENERAL: Well developed and well nourished, in no acute distress. VITAL SIGNS: Blood pressure 138/94, heart rate 90, respiratory rate 19, afebrile, T-max 99, and oxygen saturation 95% on room air. LUNGS: Coarse breath sounds. Diminished at bases. CARDIAC: Regular rhythm and rate. Normal S1 and S2 with a fourth heart sound. ABDOMEN: Soft. EXTREMITIES: No edema. LABORATORY DATA: Natriuretic peptide on admission was 100. BUN 9 and creatinine 0.8. IMPRESSION: 1. Acute bronchitis. 2. Bronchospastic lung disease. 3. Hypertensive heart disease. 4. Chronic diastolic congestive heart failure. 5. Mild degenerative valve disease. 6. No evidence of pulmonary hypertension. PLAN: 1. Antimicrobials. 2. Respiratory hygiene. 3. DVT prophylaxis. 4. Maintain current antihypertensives. 5. No aspirin in view of allergy. 6. Consider outpatient assessment of coronary flow reserve. Sammy Garcia M.D. : NORRIS/CHRISTOPHER JOB#: [id number] CC:
--- NOTE | 2018-06-10 11:12 | Discharge Summary ---
Discharge Summary Discharge Summary _ DATE OF ADMISSION: 06/05/2018 DATE OF DISCHARGE: 06/09/2018 DISCHARGED BY: Dr. Goldman REASON FOR ADMISSION: 82 years old male with past medical history of hypertension, hypercholesterolemia, asthma, sickle cell disease, sciatica, presented to emergency department due to shortness of breath, accompanied by a family member. ' Patient had a history of recent pneumonia. Vital signs revealed no fever. Pulse oximetry was 92% on room air. Laboratory workup revealed no leukocytosis. Hemoglobin 11.3 ,hematocrit 33.2 Troponin was negative. EKG revealed sinus rhythm , no acute ischemic changes pro BNP 100. Chest x-ray revealed possible mild congestive heart failure streaky left likely subsegmental atelectasis. Patient was admitted with diagnoses of possible pneumonia, CHF, bronchitis. CONSULTANTS: manager route Dr. Strauss pulmonary Dr. Ham ID specialist Dr. Bob waste management engineer/oncologist Dr. William [facility] HOSPITAL COURSE: Patient admitted to telemetry floor. Supplemental oxygen provided as needed to keep pulse oximetry above 92%. Pulmonary toilet provided [id number] and as needed. Patient started on empiric antibiotics. DVT prophylaxis provided. Gasoline Pump Installer followed. CT of the chest revealed no acute abnormality. Minimal chronic scarring within the lungs bilaterally. 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 No aspirin , given aspirin allergy. Echocardiogram revealed preserved ejection fraction 55%. Mild left ventricular hypertrophy. No evidence of wall motion abnormality. Mild to moderate mitral regurgitation. Right ventricular systolic pressure of 29. Armored Car Guard recommended to maintain current cardiovascular regimen. No evidence of acute decompensation of congestive heart failure. Armored Car Guard recommended to consider outpatient assessment of coronary flow reserve. ID specialist closely followed. Sputum culture was negative. Influenza screen test was negative. ID specialist cleared patient for discharge home , completed empiric Levaquin for total of 5 days . Hemoglobin and hematocrit were clsoely monitored with goal to keep hemoglobin above 7, remained stable. Prior to discharge hemoglobin 12.2, hematocrit 36.5. Patient clinically stabilized, no signs of respiratory distress. Pulse oximetry stable on room air. Patient was stable for discharge home with home health services. FINAL DIAGNOSES: Acute bronchitis, Asthma with bronchospasm, Possible pneumonia with history of recent pneumonia Compensated diastolic congestive heart failure Hypertensive heart disease History of sickle cell disease Anemia of chronic disease Hypertension DISCHARGE MEDICATIONS: See Medication Reconciliation list. DISCHARGE INSTRUCTIONS: Patient was discharged home with home health services. Follow up with primary care provider in one week. I have been assigned to dictate discharge summary for this account. I was not involved in the patient's management. Michelle De Leon NP Jun 10, 2018 11:12
== END 2018-06-09 15:00 | disposition home health service (06) | DRG 871 ==
LOC: EMR 13:17 → 2E 15:07 → EDBEDREQ 16:11 → EMR 16:45
DX: A41.9 Sepsis, unspecified organism (principal); J18.9 Pneumonia, unspecified organism; I50.32 Chronic diastolic (congestive) heart failure; I11.0 Hypertensive heart disease with heart failure; Z88.6 Allergy status to analgesic agent; E78.00 Pure hypercholesterolemia, unspecified; D57.1 Sickle-cell disease without crisis; I34.0 Nonrheumatic mitral (valve) insufficiency; D63.8 Anemia in other chronic diseases classified elsewhere; K44.9 Diaphragmatic hernia without obstruction or gangrene; J45.909 Unspecified asthma, uncomplicated; J20.9 Acute bronchitis, unspecified; E78.5 Hyperlipidemia, unspecified
CPT/HCPCS: 36415; 71045; 71260; 80048; 80053; 82248; 82550; 82553; 83880; 84484; 85007; 85025; 85610; 85730; 86710; 87070; 87205; 93005; 93306; 94640; 94664; 94760; 96365; 96375; 97803; 99285